=== PATIENT | female | born 1965 | race Caucasian/White ===

== ENCOUNTER → 2017-11-30 16:39 | Outpatient (CLI) | payer OTHER, SELFPAY | PROVIDERS: Family Provider Family Medicine; PCP Family Medicine; Visit Provider Nurse Practitioner Adult Health | DX: R35.0 Frequency of micturition (principal) | CPT/HCPCS: 87086; 87088 ==

== ENCOUNTER → 2018-11-30 14:53 | Outpatient (CLI) | payer OTHER, SELFPAY ==
[2018-11-30 16:39] LABS: Estradiol 35.7 pg/mL; Follicle Stimulating Hormone 76.6 mIU/mL; Free T3 2.1 pg/mL (2.18-3.98); T4 Free Direct 1.13 ng/dL (0.76-1.46); Thyroid Stim Hormone (TSH) 0.72 uIU/mL (0.358-3.74)
[2018-11-30 20:16] LABS: Hemoglobin A1c 5.1 % (4.2-6.3)
[2018-12-05 12:55] LABS: HPV Reflexed? NOT INDICATED
== END ==
PROVIDERS: Visit Provider Obstetrics & Gynecology
DX: N92.6 Irregular menstruation, unspecified (principal); Z12.4 Encounter for screening for malignant neoplasm of cervix
CPT/HCPCS: 36415; 82670; 83001; 83036; 84144; 84403; 84439; 84443; 84481; 88175; G0145

== ENCOUNTER → 2018-12-20 | Outpatient (CLI) | payer OTHER, SELFPAY ==
--- NOTE | 2018-12-20 08:36 | US_ITS ---
STUDY: ULTRASOUND OF THE FEMALE PELVIS - COMPLETE REASON FOR EXAM: Female, 53 years old. Irregular spotting LMP: December last year TECHNIQUE: Transabdominal and Transvaginal TECHNICAL QUALITY: Adequate. COMPARISON: 01/30/2012 FINDINGS: The uterus is anteverted and is in a midline position. The uterus measures 9.3 x 5.6 x 5.5 cm. There is a Nabothian cyst of the cervix. The endometrium measures 3.2 mm in thickness, and is hyperechoic. There is no demonstrated endometrial mass. 3 uterine fibroids are present, measuring 25 x 25 x 24 mm anteriorly, 22 x 19 x 18 mm posteriorly, and 9 x 9 x 6 mm posteriorly. I.U.D. - The patient does not have an I.U.D. The right ovary is visualized. The right ovary measures 2.2 x 1.6 x 1.0 cm. There is no right ovarian cyst or ovarian mass. There is no visualized right adnexal mass or complex lesion. There is normal arterial and normal venous vascularity. The left ovary is visualized. The left ovary measures 2.7 x 2.2 x 2.2 cm. There is no left ovarian cyst or ovarian mass. There is no visualized left adnexal mass or complex lesion. There is normal arterial and normal venous vascularity. There is no fluid in the cul-de-sac. The pre void volume of the bladder was 192 ml. Polycystic ovary disease: No. US/Pelvic (Non ) IMPRESSION: 3 uterine fibroids are present, measuring 25 x 25 x 24 mm anteriorly, 22 x 19 x 18 mm posteriorly, and 9 x 9 x 6 mm posteriorly. No endometrial lesions are seen. The ovaries are unremarkable. Electronically Signed: Ulises Fernando MD at 18:38 EDT Tel , Service support ,
--- NOTE | 2018-12-20 08:52 | US_ITS ---
STUDY: ULTRASOUND OF THE FEMALE PELVIS - COMPLETE REASON FOR EXAM: Female, 53 years old. Irregular spotting LMP: December last year TECHNIQUE: Transabdominal and Transvaginal TECHNICAL QUALITY: Adequate. COMPARISON: 01/30/2012 FINDINGS: The uterus is anteverted and is in a midline position. The uterus measures 9.3 x 5.6 x 5.5 cm. There is a Nabothian cyst of the cervix. The endometrium measures 3.2 mm in thickness, and is hyperechoic. There is no demonstrated endometrial mass. 3 uterine fibroids are present, measuring 25 x 25 x 24 mm anteriorly, 22 x 19 x 18 mm posteriorly, and 9 x 9 x 6 mm posteriorly. I.U.D. - The patient does not have an I.U.D. The right ovary is visualized. The right ovary measures 2.2 x 1.6 x 1.0 cm. There is no right ovarian cyst or ovarian mass. There is no visualized right adnexal mass or complex lesion. There is normal arterial and normal venous vascularity. The left ovary is visualized. The left ovary measures 2.7 x 2.2 x 2.2 cm. There is no left ovarian cyst or ovarian mass. There is no visualized left adnexal mass or complex lesion. There is normal arterial and normal venous vascularity. There is no fluid in the cul-de-sac. The pre void volume of the bladder was 192 ml. Polycystic ovary disease: No. US/Transvaginal Non- IMPRESSION: 3 uterine fibroids are present, measuring 25 x 25 x 24 mm anteriorly, 22 x 19 x 18 mm posteriorly, and 9 x 9 x 6 mm posteriorly. No endometrial lesions are seen. The ovaries are unremarkable. Electronically Signed: Ulises Fernando MD at 18:38 EDT Tel , Service support ,
== END | disposition home or self-care (01) ==
PROVIDERS: Family Provider Family Medicine; PCP Family Medicine; Referring Provider Obstetrics & Gynecology; Visit Provider Obstetrics & Gynecology
DX: N92.0 Excessive and frequent menstruation with regular cycle (principal)
CPT/HCPCS: 76830; 76856

== ENCOUNTER → 2018-12-26 | Outpatient (CLI) | payer OTHER, SELFPAY ==
--- NOTE | 2018-12-26 | EMB_PTH ---
PATIENT: DESMOND KIDD LOC: [facility] U#:[id number] AGE/SX: 53/F ROOM: RE12/26/[address]: Dr. Leticia Herrera MD : 1965 BED: DIS: 12/26/2018 SPEC #: [id number] RECD: 12/26/18 16:21 STATUS: BOGDAN ADRY #: [id number] DENZEL: 12/26/18 00:[address]: Leticia Herrera DEPT: SURGICAL PATHOLOGY RECD BY: Tommie Worley ENTERED: 12/27/18 08:17 SP TYPE: ENDOM BX/C AXEL DR: Dr. Maryanne Dsouza MD Tissues: Endometrium, NOS Procedures: Surgery Specimen Level IV HEADER OPERATION: Endometrial biopsy PRE-OP DIAGNOSIS: Postmenopausal bleeding TISSUE SUBMITTED: Endometrial biopsy MICROSCOPIC DIAGNOSIS Endometrial biopsy: Mildly disordered proliferative endometrium. SJ:andrew 12/28/18 MICROSCOPIC DESCRIPTION Slides are reviewed. GROSS DESCRIPTION Received in fixative is one container labeled with the patient's name and designated endometrial biopsy. The specimen consists of multiple irregular fragments of porter-pink soft tissue that in aggregate measure 0.8 x 0.5 x 0.3 cm. One of the fragments has a polypoid shape and measures 0.7 cm in greatest dimension. The specimen is totally submitted in one cassette. / CE:andrew 12/27/18 TC:5 CPT: 94701
== END | disposition home or self-care (01) ==
LOC: LABSPEC 17:55
PROVIDERS: Family Provider Family Medicine; PCP Family Medicine; Referring Provider Obstetrics & Gynecology; Visit Provider Obstetrics & Gynecology
DX: N85.8 Other specified noninflammatory disorders of uterus (principal); N95.0 Postmenopausal bleeding
CPT/HCPCS: 88305

== ENCOUNTER → 2019-01-11 | Outpatient (CLI) | payer OTHER, SELFPAY ==
[2019-01-11 16:06] LABS: Anion Gap 5 (5-15); BUN 13 mg/dL (7-18); BUN/Creat Ratio 15.1 RATIO (10-20); Calcium,Total 9.1 mg/dL (8.5-10.1); Chloride 98 mmol/L (98-107); Creatinine, Serum 0.86 mg/dL (0.55-1.02); EST Glomerular Filtration Rate 73 mL/min (>60); Est Glom Filt Rate - Afr Amer 88 mL/min (>60); Glucose 82 mg/dL (74-106); Potassium 4.4 mmol/L (3.5-5.1); Sodium Level 133 mmol/L (136-145)
== END | disposition home or self-care (01) ==
LOC: MFPLAB 14:10
PROVIDERS: Family Provider Family Medicine; PCP Family Medicine; Referring Provider Family Medicine; Visit Provider Family Medicine
DX: I10 Essential (primary) hypertension (principal)
CPT/HCPCS: 36415; 80048

== ENCOUNTER → 2020-07-28 | Outpatient (CLI) | payer OTHER, SELFPAY ==
[2020-08-02 20:54] LABS: HPV Reflexed? NOT INDICATED
== END | disposition home or self-care (01) ==
LOC: LABSPEC 11:05
PROVIDERS: PCP Family Medicine; Visit Provider Student in an Organized Health Care Education/Training Program
DX: Z12.4 Encounter for screening for malignant neoplasm of cervix (principal)
CPT/HCPCS: 88175; G0145

== ENCOUNTER → 2020-08-28 | Outpatient (CLI) | payer OTHER, SELFPAY ==
--- NOTE | 2020-08-28 | CER_PTH ---
PATIENT: DESMOND KIDD LOC: [facility] U#:[id number] AGE/SX: 55/F ROOM: RE08/28/[address]: Dr. Octavia Muniz DO : 1965 BED: DIS: 08/28/2020 SPEC #: [id number] RECD: 08/28/20 16:35 STATUS: BOGDAN REMyron #: [id number] DENZEL: 08/28/20 00:[address]: Octavia Muniz DEPT: SURGICAL PATHOLOGY RECD BY: Carlos A Patel ENTERED: 08/31/20 08:12 SP TYPE: CERV OTHR DR: Dr. Maryanne Dsouza MD Tissues: Uterine cervix, NOS Procedures: Surgery Specimen Level IV HEADER OPERATION: Polypectomy PRE-OP DIAGNOSIS: Cervical polyp TISSUE SUBMITTED: Cervical polyp MICROSCOPIC DIAGNOSIS Cervical polyp, polypectomy: Benign endocervical polyp. SJ:andrew 09/01/2020 MICROSCOPIC DESCRIPTION Slides are reviewed. GROSS DESCRIPTION Received in fixative is one container labeled with the patient's name and designated cervical polyp. The specimen consists of a porter-pink polyp measuring 1.5 x 0.7 x 0.3 cm. The entire specimen is submitted in one cassette. / SJ:andrew 08/31/20 TC:5 CPT: 12208
== END | disposition home or self-care (01) ==
LOC: LABSPEC 16:03
PROVIDERS: PCP Family Medicine; Visit Provider Student in an Organized Health Care Education/Training Program
DX: N84.1 Polyp of cervix uteri (principal)
CPT/HCPCS: 88305

== ENCOUNTER → 2020-09-11 10:42 | Outpatient (CLI) | payer OTHER, SELFPAY ==
--- NOTE | 2020-09-11 10:51 | EKG12_ITS ---
Test Reason : Blood Pressure : / mmHG Vent. Rate : 066 BPM Atrial Rate : 066 BPM P-R Int : 120 ms QRS Dur : 080 ms QT Int : 402 ms P-R-T Axes : 057 081 052 degrees QTc Int : 421 ms Normal sinus rhythm Normal ECG Confirmed by ELIEL ACOSTA, DENYS ([id number]), design editor VISHAL TABOR ([id number]) on 09/14/2020 12:54:29 PM Referred By: ANSELMO ALEXIS Confirmed By:DENYS JULIAN MD
== END ==
PROVIDERS: PCP Family Medicine
DX: I49.9 Cardiac arrhythmia, unspecified (principal)
CPT/HCPCS: 93005; 93225; 93226

== ENCOUNTER 2022-05-13 08:31 | Outpatient (CLI) | payer OTHER, SELFPAY ==
--- OUTSIDE RECORDS SUMMARY | 2022-05-13 08:36 | XMS RPT_ITS ---
:1965 Author Organization [facility] Care Team Providers Name Role Phone GOLDIE, DR CT Patterson Attending Unavailable GOLDIE, DR CT Patterson Primary Care Unavailable GOLDIE, DR CT Patterson Admitting Unavailable LETY OZUNA Referring Unavailable PROBLEMS PROBLEMS DATE TYPE CONDITION / CODE ATTENDING STATUS SOURCE 05/31/2021 Admitting COVID-19 / GOLDIE, DR Yves Phan ne Diagnosis U071(ICD-10) [facility] 05/31/2021 [facility] GOLDIEDR Yves TURNER Diagnosis U071(ICD-10) [facility] PROCEDURES PROCEDURES No Procedure Records FoundRESULTS RESULTS PROGRESS Observed: 02/16/2022 9:03 AM Status: COMPLETED S [facility]: [id number] Author: Lety Ozuna APRN.CNP Service: ? Author Type: Nurse Practitioner Type: Progress Notes Filed: 02/16/2022 9:48 AM Note Text: Subjective HPI HPI Edith Kidd is a 56 year old fe male who presents today for CC of left 4th toe pain after kicking door. This started 3 weeks ago. Has tried post op shoe. Symptoms are worsen ed by walking. Denies numbness/tingling of left 4th toe. .Patient presents with: Toe Pain (Toe): left foot 4th toe pain, hit on door x 3 weeks PAST MEDICAL HISTORY Diagnosis Date - Anemia - Blood dyscrasia - Family history of malignant neoplasm of gastrointestinal tract - Gestational diabetes - Internal hemorrhoids without mention of complication - Unspecified essential hypertension PAST SURGICAL HISTORY Procedure Laterality Date - COLONOSCOPY FLX DX W/COLLJ SPEC WHEN PFRMD 1999 Colonoscopy - COLONOSCOPY FLX DX W/COLLJ SPEC WHEN PFRMD 11/30/04 Colonoscopy - COLONOSCOPY FLX DX W/COLLJ SPEC WHEN PFRMD 12/02/10 - COLONOSCOPY FLX DX W/COLLJ SPEC WHEN PFRMD 05/02/2016 Colonoscopy ALLERGIES Patient has no known allergie s. MEDICATIONS cholecalciferol (VITAMIN D3) 5,000 unit tab Take 1 tablet by mouth once daily. MEDICATION, NON-DATABASE Mushroom . Br occoli supplement selenium 200 mcg cap Take by mouth. MAGNESIUM CITRATE ORAL Take by mouth. lisinopril (ZESTRIL, PRINIVIL) 20 mg ta blet Take 20 mg by mouth once daily. no.82/iron/folate no2 (TL ASHA TE ORAL) Take by mouth. 400 mcg MEDICATION, NON-DATABASE Vitamin D3 100 0 units takes 1 four times per week FAMILY HISTORY Problem Relation Age of Onset - Colon Cancer Father - Colon Cancer Paternal Aunt - Colon Cancer Paternal Uncle - Heart disease Mother - Hypertension Mother - Hyperlipidemia Mother - Heart Failure Mother - other (leukemia) Mother - other (leukemia) Brother Social History Tobacco Use - Smoking status: Never Smoker - Smokeless tobacco: Never Used Substance Use Topics - Alcohol use: Yes - Drug use: No ROS Objective Blood pressure 122/74, pulse (!) 56, t emperature 36.2 ?C (97.2 ?F), resp. rate 16, weight 55.3 kg (122 lb), SpO2 99 %. Physical Exam Constitutional: General: She is not in acute distress. Appearance: She is not toxic-appearing or diaphoretic. HENT: Head: Normocephalic and atraumatic. Cardiovascular: Pulses: Dorsalis pedis pulses are 2+ on the le ft side. Posterior tibial pulses are 2+ on the left side. Pulmonary: Effort: Pulmonary effort is normal. No accessory muscle usage or respiratory distress. Musculoskeletal: Feet: Neurological: Mental Status: She is alert and orient ed to person, place, and time. ASSESSMENT/PLAN: 1. Toe injury, left, initial encounter - ICD9: 959.7, ICD10: S99.922A -no bony abnormality noted on xray -given stretches/exercises -Rest, Ice, Compression, Elevation disc ussed -discussed use of ibuprofen -follow up with primary care if symptom s persist/worsen in 10-14 days New post op shoe provided. - XR TOE AP/LAT/OBL LEFT IMPRESSION: Soft tissue swelling of th e fourth digit. No acute fracture seen. ? Dictated by : ATTILA GAINES MD Agrees to plan Lety Ozuna APRN.SHAREBROKER XR TOE 3V AP/LAT/OBL LT Observed: 02/16/2022 8:24 Status: F [facility] * *Final Report* * * DATE OF EXAM: Feb 16 2022 8:24AM WOX [id number] - XR TOE 3V AP/LAT/OBL LT / AC CESSION # [id number] PROCEDURE REASON: Toe injury, left, ini tial encounter * * * * Physician Interpretation * * * * EXAM TITLE: XR TOE 3V AP/LAT/OBL LT EXAM DATE/TIME: 02/16/2022 8:24 AM COMPARISON: None CLINICAL INDICATION/HISTORY: Injury. TECHNIQUE: AP, lateral and oblique view s of the fourth digit of the left foot are presented. FINDINGS: No acute fractures or subluxations are noted. The joint spaces are well preserved. The mineralization of the bones is norm al. There is soft tissue swelling. IMPRESSION: Soft tissue swelling of th e fourth digit. No acute fracture seen. Skin Toggler: PSCB Transcribe Date/Time: Feb 16 2022 9:05A Dictated by : ATTILA GAINES MD This examination was interpreted and th e report reviewed and electronically signed by: ATTILA GAINES MD on Feb 16 2022 9:07AM EST [id number] PROGRESS Observed: 02/16/2022 8:10 AM Status: [facility] [id number] Author: Claudia Gambino RT(R) Service: Radiology Author Type: Technologist Type: Progress Notes Filed: 02/16/2022 8:24 AM Note Text: Radiology Service Progress Note PATIENT NAME: Edith Kidd DATE OF SERVICE: February 16, 2022 TIME: 8:13 AM PATIENT IDENTITY VERIFICATION COMPLETED USING TWO (2) IDENTIFIERS: Name and Date of confirmed by patient verbally. FALL SCREENING: Has the patient had 2 f alls in the last year or 1 fall with injury or currently using an Ambul atory Assistive Device (Walker, Cane, Wheelchair, Crutches, etc.)? No PATIENT GENDER DATA: Female. status: : No status: NO. PATIENT RELEVANT IMPLANT DATA REVIEWED: Yes RADIOLOGY DEPARTMENT: General X-ray: Ex am(s) Completed: Lower Extremity X-Ray(s): Toes, Left 4th toe PERIPHERAL IV DATA: Not applicable SIGNED BY: RT Dillon(R) February 16, 2022 8:13 AM CNOV Observed: 02/16/2022 7:30 AM Status: COMPLETED S ource: [facility] REPOSITOR Y Office Visit (UCWSTR) EDITH KIDD ([id number]) 1965 F Date Time Provider Department 02/16/22 7:30 AM LETY OZUNA RUST During your visit today, we recorded t he following information about you: Temperature Pulse Respiration Blood p ressure 97.2 degrees 56/minute 16/minute 122/7 4 Weight 55.3 kg Lety Ozuna APRN.CNP 02/16/2022 9:48 AM Signed Subjective HPI HPI Edith Kidd is a 56 year old fe male who presents today for CC of left 4th toe pain after kicking door. This s tarted 3 weeks ago. Has tried post op shoe. Symptoms are worsened by walking. Denies numbness/tingling of left 4th toe. .Patient presents with: Toe Pain (Toe): left foot 4th toe pain, hit on door x 3 weeks PAST MEDICAL HISTORY Diagnosis Date - Anemia - Blood dyscrasia - Family history of malignant neoplasm of gastrointestinal tract - Gestational diabetes - Internal hemorrhoids without mention of complication - Unspecified essential hypertension PAST SURGICAL HISTORY Procedure Laterality Date - COLONOSCOPY FLX DX W/COLLJ SPEC WHEN PFRMD 1999 Colonoscopy - COLONOSCOPY FLX DX W/COLLJ SPEC WHEN PFRMD 11/30/04 Colonoscopy - COLONOSCOPY FLX DX W/COLLJ SPEC WHEN PFRMD 12/02/10 - COLONOSCOPY FLX DX W/COLLJ SPEC WHEN PFRMD 05/02/2016 Colonoscopy ALLERGIES Patient has no known allergie s. MEDICATIONS cholecalciferol (VITAMIN D3) 5,000 unit tab Take 1 tablet by mouth once daily. MEDICATION, NON-DATABASE Mushroom . Bro ccoli supplement selenium 200 mcg cap Take by mouth. MAGNESIUM CITRATE ORAL Take by mouth. lisinopril (ZESTRIL, PRINIVIL) 20 mg ta blet Take 20 mg by mouth once daily. no.82/iron/folate no2 (TL ASHA TE ORAL) Take by mouth. 400 mcg MEDICATION, NON-DATABASE Vitamin D3 100 0 units takes 1 four times per week FAMILY HISTORY Problem Relation Age of Onset - Colon Cancer Father - Colon Cancer Paternal Aunt - Colon Cancer Paternal Uncle - Heart disease Mother - Hypertension Mother - Hyperlipidemia Mother - Heart Failure Mother - other (leukemia) Mother - other (leukemia) Brother Social History Tobacco Use - Smoking status: Never Smoker - Smokeless tobacco: Never Used Substance Use Topics - Alcohol use: Yes - Drug use: No ROS Objective Blood pressure 122/74, pulse (!) 56, te mperature 36.2 ?C (97.2 ?F), resp. rate 16, weight 55.3 kg (122 lb), SpO2 99 %. Physical Exam Constitutional: General: She is not in acute distress. Appearance: She is not toxic-appearing or diaphoretic. HENT: Head: Normocephalic and atraumatic. Cardiovascular: Pulses: Dorsalis pedis pulses are 2+ on the le ft side. Posterior tibial pulses are 2+ on the left side. Pulmonary: Effort: Pulmonary effort is normal. No accessory muscle usage or respiratory distress. Musculoskeletal: Feet: Neurological: Mental Status: She is alert and orient ed to person, place, and time. ASSESSMENT/PLAN: 1. Toe injury, left, initial encounter - ICD9: 959.7, ICD10: S99.922A -no bony abnormality noted on xray -given stretches/exercises -Rest, Ice, Compression, Elevation disc ussed -discussed use of ibuprofen -follow up with primary care if symptom s persist/worsen in 10-14 days New post op shoe provided. - XR TOE AP/LAT/OBL LEFT IMPRESSION: Soft tissue swelling of the fourth digit. No acute fracture seen. ? Dictated by : ATTILA GAINES MD Agrees to plan Lety Ozuna APRN.SHAREBROKER Referring Provider: SELF [200] Allergies As of Date: 02/16/2022 (No Known Allergies) Date Reviewed: 02/16/2022 Reviewed by: Lety Ozuna APRN.SHAREBROKER - Fully Assessed Reason for Visit: Toe Pain (Toe) [761] Cmt: left foot 4t h toe pain, hit on door x 3 weeks Primary Visit Diagnosis:Toe injury, lef t, initial encounter [S99.922A] Order(s):XR TOE AP/LAT/OBL LEFT [[id number]] Order #: [id number]. #:[id number] Prescriptions as of 02/16/2022 - cholecalciferol (VITAMIN D3) 5,000 un it tab Take 1 tablet by mouth once daily. - MEDICATION, NON-DATABASE Mushroom . Broccoli supplement - selenium 200 mcg cap Take by mouth. - no.82/iron/folate no2 (TL FO LATE ORAL) Take by mouth. 400 mcg - MAGNESIUM CITRATE ORAL Take by mouth. - lisinopril (ZESTRIL, PRINIVIL) 20 mg tablet Take 20 mg by mouth once daily. - MEDICATION, NON-DATABASE Vitamin D3 1000 units takes 1 four paresh es per week Problem List As Of Date 02/16/2022 Note d Resolved Unspecified essential hypertension [I1 0] Anemia [D64.9] Family history of malignant neoplasm o f gastroi* Gestational diabetes [O24.419] S/P mastectomy, unspecified laterality [Z90.10] 05/15/2017 Encounter Status:Closed by KELSEY OZUNA on 02/16/22 CORONAVIRUS PCR - POMERENE Collected: 05/31/2021 Status: F Source: [facility] 9:30 AM [facility] REPOSITORY TYPE CODE TESTS RESULT OUT OF RANGE REFERENCE UNITS LAB COVID-19(KATIUSKA COVID-19 POSITIVE Abnormal Alert NORMAL: N EGATIVE NC) Result Comment: { CALLED TO EVELIA,,13:25,KLS { READ BACK BY EVELIA LAB SEND TO IC?(LOINC) SEND TO IC? YES Result Comment: RESULTS FAXED TO [facility] CONTROL. SARS-CoV-2 THIS TEST IS BEING USED UNDER THE FDA E UA PROCEDURE. THIS ASSAY HAS BEEN VALIDATED IN THE [facility] FO R USE WITH NASOPHARYNGEAL SPECIMENS IN [facility]. INTERPRETIVE DATA LABORATORY TEST RESULTS SHOULD ALWAYS BE CONSIDERED IN THE CONTEXT OF CLINICAL OBSERVATIONS AND EPIDEMIOLOGICAL DATA I N MAKING FINAL DIAGNOSIS AND PATIENT MANAGEMENT DECISIONS. PATIENT MANAGEMEN T SHOULD FOLLOW CURRENT CDC GUIDELINES. A POSITIVE TEST RESULT FOR COVID-19 IND ICATES THAT RNA FROM SARS-CoV-2 WAS DETECTED, AND THE PATIENT IS INFECTED WITH THE VIRUS AND PRESUMED TO BE CONTAGIOUS. A NEGATIVE TEST RESULT FOR THIS TEST ME ANS THAT SARS-CoV-2 RNA WAS NOT PRESENT IN THE SPECIMEN ABOVE THE LIMIT OF DETE CTION. HOWEVER, A NEGATVIE RESULT DOES NOT RULE OUT COVID-19 AND SHOULD NOT BE USED THE SOLE BASIS FOR TREATMENT OR PATIENT MANAGEMENT DECISIONS. A NEGATIV E RESULT DOES NOT EXCLUDE THE POSSIBILITY OF COVID-19. WHEN DIAGNOSTIC TESTING IS NEGATIVE, TH E POSSIBLILTY OF A FALSE NEGATIVE RESULT SHOULD BE CONSIDERED IN THE CONTEXT OF A PATIENT'S RECENT EXPOSURES AND THE PRESENCE OF CLINICAL SIGNS AND SYMPTOMS CONSISTENT WITH COVID-19. THE POSSIBILITY OF A FALSE NEGATIVE RESULT SHOULD ESPECIALLY BE CONSIDERED IF THE PATIENT'S RECENT EXPOSURES OR CLINICAL PRESENTATION INDICATE THAT COVID-19 IS LIKELY, AND DIAGNOSTIC TESTS FOR OTHER CAUSES OF ILLNESS (e.g., OTHER RESPIRATORY ILLNESS) ARE NEGATIVE. IF COVID-19 IS STILL SUSPECTED BASED ON EXPOSURE HISTORY TOGETHER WITH OTHER CL INICAL FINDINGS, RE-TESTED SHOULD BE CONSIDERED BY HEALTHCARE PROVIDERS IN C ONSULTATION WITH PUBLIC HEALTH AUTHORITIES. Performed By: #### [id number] #### Ben [facility],[address] [place] [address] ALLERGIES ALLERGIES DATE TYPE / CODE NAME / CODE REACTION SEVERITY SOURCE Drug NO KNOWN ALLERGIES [facility] Class/[id number]([facility]) ENCOUNTERS ENCOUNTERS ADMIT/DISCHARGE ACCOUNT ADMITTING ENCOUNTER LOCATION SOURCE NUMBER CLASS 02/16/2022/02/17/[id number] ing:WORG 02/16/2022/02/17/[id number] ing:[facility] 05/31/2021/05/31/[id number] GOLDIE Ambulatory Building:[facility] Ben Coles [address] [place] [address] PAYERS PAYERS ENCOUNTER GUARANTOR PAYER SUBSCRIBER SOURCE 02/16/2022 Primary [facility] Insurance:[employer]ULTCARE [facility]DOB[facility]: [id number] [facility] [address] Date:[id number] [address] [place] [id number] Name:Y 02/16/2022 Primary [facility] Insurance:AULTCARE SPENCERDOB[facility] Number: [id number] [address] [place] [address] ROAD Date:[id number] [address] [place] [id number] Name:Y 05/31/2021 EDITH Primary EDITH SPENCERDOB: Ben blount SPENCERDOB: Insurance:AULTCARE [id number] Abdirashid [facility] OUTPATIENTPolicy [address] [place] [facility] [place] Number: [id number]: [id number] Date:Plan Name:A2 ()
[2022-05-13 10:05] LABS: Absolute Lymphocyte Count 1.62 X10^3/uL (0.83-4.51); Absolute Neutrophil Count 3.7 X10^3/uL (2.0-7.7); Basophil# 0.06 X10^3/uL; Eosinophil# 0.03 X10^3/uL; Eosinophils% 0.5 % (0-5); Hematocrit 43.6 % (37-47); Hemoglobin 14.8 g/dL (12.0-15.0); Lymphocyte # 1.62 X10^3/ul (0.83-4.51); Lymphocyte % 27.3 % (19-41); Mean Corp Hgb Conc 33.9 g/dL (32-36); Mean Corpuscular Hgb 32.2 pg (27.0-32.0); Mean Platelet Vol. 10.6 fl (6.2-12.0); Monocyte% 8.4 % (0-10); NRBC Flagged by Analyzer 0 % (0-5); Neutrophil # 3.72 X10^3/uL (2.7-7.7); Neutrophil % 62.6 % (47-70); Platelet Count 244 K/mm3 (150-450); RBC Distribution Width CV 11.9 % (11.6-14.6); Red Blood Count 4.59 M/mm3 (4.2-5.4); White Blood Count 5.9 K/mm3 (4.4-11.0)
[2022-05-13 10:33] LABS: Microalbumin,Random Urine < 5.0 mg/L (NO RANGE EST.)
[2022-05-13 10:34] LABS: AST(SGOT) 30 U/L (15-37); Alanine Aminotransfer ALT/SGPT 28 U/L (13-56); Albumin, Serum 3.8 g/dL (3.2-5.0); Alkaline Phosphatase 82 U/L (45-117); Anion Gap 9 (5-15); BUN 7 mg/dL (7-18); BUN/Creat Ratio 9.2 RATIO (10-20); Calcium,Total 9.4 mg/dL (8.5-10.1); Chloride 100 mmol/L (98-107); Cholesterol 226 mg/dL (200); Creatinine, Serum 0.76 mg/dL (0.55-1.02); EST Glomerular Filtration Rate 83 mL/min (>60); Est Glom Filt Rate - Afr Amer 100 mL/min (>60); Globulin 3.7 g/dL (2.2-4.2); Glucose 91 mg/dL (74-106); High Density Lipoprotein 67 mg/dL; Protein, Total 7.5 g/dL (6.4-8.2); Sodium Level 137 mmol/L (136-145); Triglycerides 134 mg/dL; Very Low Density Lipoprotein 27 mg/dL (5-40)
[2022-05-13 10:42] LABS: Hemoglobin A1c 5.3 % (3.8-5.6)
== END 2022-05-13 23:59 | disposition home or self-care (01) ==
LOC: MFPLAB 08:32
PROVIDERS: PCP Family Medicine; Referring Provider Family Medicine; Visit Provider Family Medicine
DX: Z00.00 Encounter for general adult medical examination without abnormal findings (principal)
CPT/HCPCS: 36415; 80053; 80061; 82043; 83036; 84443; 85025

== ENCOUNTER → 2023-03-10 | Outpatient (CLI) | payer OTHER, SELFPAY ==
[2023-03-17 07:08] LABS: HPV APTIMA, High Risk Negative (Negative)
== END | disposition home or self-care (01) ==
LOC: LABSPEC 15:37
PROVIDERS: PCP Family Medicine; Referring Provider Student in an Organized Health Care Education/Training Program; Visit Provider Student in an Organized Health Care Education/Training Program
DX: Z12.4 Encounter for screening for malignant neoplasm of cervix (principal)
CPT/HCPCS: 87624; 88175; G0145

== ENCOUNTER → 2023-03-24 | Outpatient (CLI) | payer OTHER, SELFPAY ==
--- NOTE | 2023-03-24 13:33 | BI_ITS ---
MAMMOGRAPHY - UNILATERAL SCREENING: LEFT BREAST REASON FOR EXAM: Female, 57 years old. Routine annual screening examination (unilateral). PERTINENT HISTORY: Personal history of breast cancer. Prior right mastectomy. TECHNIQUE: Digital unilateral breast angelic (3D mammographic acquisition) in the CC and MLO projections. 2-D mediolateral oblique (MLO) and craniocaudad (CC) views of both breasts were obtained. CAD: Full Field Digital Mammography with Computer Added Detection was performed. COMPARISON: Comparison is made with prior study dated May 04, 2016 and April 18, 2016. FINDINGS: Breast Composition: The breasts are heterogeneously dense, which may obscure small masses. There are no dominant masses or suspicious calcifications. Stable benign-appearing left axillary lymph nodes. No other significant abnormalities are identified. There has been no significant change since the prior study. BI/SCREEN MAMM (CAD) W/ANGELIC UNI L IMPRESSION: Stable unilateral screening mammogram. Yearly follow-up mammogram recommended. (A) ASSESSMENT CATEGORY: BIRADS Category 2: Benign. A letter regarding these results will be sent to the patient by the facility within 30 days. Approximately 10% of breast cancers are not detected by mammography. A normal mammogram should not delay biopsy of a clinically suspicious abnormality. [id number] Electronically Signed: Joseluis Kraft MD at 10:14 EDT ,
== END | disposition home or self-care (01) ==
LOC: OPBI 13:32
PROVIDERS: PCP Internal Medicine; Referring Provider Internal Medicine; Visit Provider Internal Medicine
DX: Z12.31 Encounter for screening mammogram for malignant neoplasm of breast (principal); Z85.3 Personal history of malignant neoplasm of breast
CPT/HCPCS: 77063; 77067

== ENCOUNTER → 2023-03-24 | Outpatient (CLI) | payer OTHER, SELFPAY ==
[2023-03-30 13:08] LABS: HPV APTIMA, High Risk Negative (Negative)
== END | disposition home or self-care (01) ==
LOC: LABSPEC 15:54
PROVIDERS: PCP Internal Medicine; Visit Provider Student in an Organized Health Care Education/Training Program
DX: Z12.4 Encounter for screening for malignant neoplasm of cervix (principal)
CPT/HCPCS: 87624; 88175; G0145

== ENCOUNTER → 2023-06-15 | Outpatient (CLI) | payer OTHER, SELFPAY ==
--- NOTE | 2023-06-15 09:06 | BD_ITS ---
STUDY: DUAL ENERGY X-RAY ABSORPTIOMETRY / DXA REASON FOR EXAM: Female, 57 years old. Osteoporosis TECHNIQUE: Bone Mineral Density (BMD) measurements of lumbar spine and bilateral hips were obtained. COMPARISON: None. FINDINGS: Lumbar Spine (L1-L4): g/cm2 (0.993) / T-score (-0.5) / Z-score (0.8) Findings are suggestive of normal bone density with a low fracture risk. Left Femur Total: g/cm2 (0.755) / T-score (-1.5) / Z-score (-0.6) Left Femoral Neck: g/cm2 (0.622) / T-score (-2.0) / Z-score (-0.8) Right Femur Total: g/cm2 (0.855) / T-score (-0.7) / Z-score (0.2) Right Femoral Neck: g/cm2 (0.689) / T-score (-1.4) / Z-score (-0.2) BD/Dexa Bone Density Study IMPRESSION: The patient is considered osteopenic as outlined below according to World Garrett Organization (WHO) criteria with a moderate fracture risk. Reference Information: The T-score is the number of standard deviations above or below the standard which is normal for young adults at their peak bone mineral density. The World Health Organization (WHO) interprets the T-scores as follows: Above -1 Normal bone density Between -1 and -2.5 Osteopenia Equal to / or below -2.5 Osteoporosis As a practical clinical guideline, osteopenia may be graded as follows: Mild -1 through -1.5 Moderate -1.6 through -2.0 Severe -2.1 through -2.4 The Z-score is the number of standard deviations above or below age-matched controls. A Z-score of less than -1.5 would be considered abnormal. References: 1. NIH Osteoporosis and Related Bone Diseases www osteo.org 2. International Society for Clinical Densitometry www iscd.org 3. National Osteoporosis Foundation www nof.org Electronically Signed: Joseluis Kraft MD at 12:30 EDT ,
== END | disposition home or self-care (01) ==
PROVIDERS: PCP Internal Medicine; Referring Provider Internal Medicine; Visit Provider Internal Medicine
DX: Z12.31 Encounter for screening mammogram for malignant neoplasm of breast (principal); Z82.62 Family history of osteoporosis
CPT/HCPCS: 77080

== ENCOUNTER → 2023-12-08 | Outpatient (CLI) | payer OTHER, SELFPAY ==
[2023-12-08 08:17] LABS: Absolute Lymphocyte Count 1.93 X10^3/uL (0.83-4.51); Absolute Neutrophil Count 3.5 X10^3/uL (2.0-7.7); Basophil# 0.08 X10^3/uL; Basophil% 1.3 % (0-1); Eosinophil# 0.05 X10^3/uL; Eosinophils% 0.8 % (0-5); Hematocrit 42.7 % (37-47); Hemoglobin 14.4 g/dL (12.0-15.0); Lymphocyte # 1.93 X10^3/ul (0.83-4.51); Lymphocyte % 31.4 % (19-41); Mean Corp Hgb Conc 33.7 g/dL (32-36); Mean Corpuscular Hgb 31.4 pg (27.0-32.0); Mean Platelet Vol. 9.8 fl (6.2-12.0); Monocyte# 0.55 X10^3/uL; Monocyte% 8.9 % (0-10); NRBC Flagged by Analyzer 0 % (0-5); Neutrophil # 3.52 X10^3/uL (2.7-7.7); Neutrophil % 57.3 % (47-70); Platelet Count 280 K/mm3 (150-450); RBC Distribution Width CV 11.9 % (11.6-14.6); RBC Distribution Width SD 40.9 fl (35.1-43.9); Red Blood Count 4.59 M/mm3 (4.2-5.4); White Blood Count 6.2 K/mm3 (4.4-11.0)
[2023-12-08 08:51] LABS: ALB/GLOB Ratio 1.1 RATIO (0.9-2.4); AST(SGOT) 32 U/L (15-37); Alanine Aminotransfer ALT/SGPT 33 U/L (13-56); Albumin, Serum 4.1 g/dL (3.2-5.0); Alkaline Phosphatase 82 U/L (45-117); Anion Gap 7 (5-15); BUN 10 mg/dL (7-18); BUN/Creat Ratio 11.7 RATIO (10-20); Calcium,Total 9.4 mg/dL (8.5-10.1); Chloride 100 mmol/L (98-107); Cholesterol 264 mg/dL (200); Creatinine, Serum 0.85 mg/dL (0.55-1.02); EST Glomerular Filtration Rate 73 mL/min (>60); Est Glom Filt Rate - Afr Amer 88 mL/min (>60); Free T3 2.9 pg/mL (2.18-3.98); Globulin 3.7 g/dL (2.2-4.2); Glucose 86 mg/dL (74-106); High Density Lipoprotein 70 mg/dL; Magnesium 2.2 mg/dL (1.6-2.6); Protein, Total 7.8 g/dL (6.4-8.2); Sodium Level 135 mmol/L (136-145); T4 Free Direct 1.02 ng/dL (0.76-1.46); Thyroid Stim Hormone (TSH) 1.81 uIU/mL (0.358-3.74); Triglycerides 102 mg/dL; Very Low Density Lipoprotein 20 mg/dL (5-40)
[2023-12-08 08:56] LABS: Vitamin B12 > 2000 pg/mL (211-911); Vitamin D,25 Hydroxy 32.9 ng/mL
== END | disposition home or self-care (01) ==
LOC: PAVLAB 07:55
PROVIDERS: PCP Internal Medicine; Referring Provider Internal Medicine; Visit Provider Internal Medicine
DX: E11.9 Type 2 diabetes mellitus without complications (principal); E78.00 Pure hypercholesterolemia, unspecified; I10 Essential (primary) hypertension; E55.9 Vitamin D deficiency, unspecified; E53.8 Deficiency of other specified B group vitamins; Z13.220 Encounter for screening for lipoid disorders
CPT/HCPCS: 36415; 80053; 80061; 82306; 82607; 83735; 84439; 84443; 84481; 85025

== ENCOUNTER → 2024-03-26 | Outpatient (CLI) | payer OTHER, SELFPAY ==
--- NOTE | 2024-03-26 15:30 | BI_ITS ---
MAMMOGRAPHY - UNILATERAL SCREENING: LEFT BREAST REASON FOR EXAM: Female, 58 years old. Routine annual screening examination (unilateral). PERTINENT HISTORY: Personal history of breast cancer. Prior right mastectomy with chemotherapy and radiation therapy. TECHNIQUE: Digital unilateral breast angelic (3D mammographic acquisition) in the CC and MLO projections. 2-D mediolateral oblique (MLO) and craniocaudad (CC) views of both breasts were obtained. CAD: Full Field Digital Mammography with Computer Added Detection was performed. COMPARISON: Comparison is made with prior study dated March 24, 2023 and May 04, 2016. FINDINGS: Breast Composition: The breasts are heterogeneously dense, which may obscure small masses. There are no dominant masses or suspicious calcifications. Stable left axillary lymph nodes. No other significant abnormalities are identified. There has been no significant change since the prior study. BI/SCREEN MAMM (CAD) W/ANGELIC UNI L IMPRESSION: Stable unilateral screening mammogram. Yearly follow-up mammogram recommended. (A) ASSESSMENT CATEGORY: BIRADS Category 2: Benign. A letter regarding these results will be sent to the patient by the facility within 30 days. Approximately 10% of breast cancers are not detected by mammography. A normal mammogram should not delay biopsy of a clinically suspicious abnormality. [id number] Electronically Signed: Joseluis Kraft MD at 8:12 EDT ,
== END | disposition home or self-care (01) ==
LOC: OPBI 15:30
PROVIDERS: PCP Internal Medicine; Referring Provider Internal Medicine; Visit Provider Internal Medicine
DX: Z12.31 Encounter for screening mammogram for malignant neoplasm of breast (principal)
CPT/HCPCS: 77063; 77067

== ENCOUNTER → 2024-12-18 | Outpatient (CLI) | payer OTHER, SELFPAY ==
[2024-12-18 06:58] LABS: Absolute Lymphocyte Count 1.51 X10^3/uL (0.83-4.51); Absolute Neutrophil Count 2.8 X10^3/uL (2.0-7.7); Basophil# 0.07 X10^3/uL; Basophil% 1.4 % (0-1); Eosinophil# 0.06 X10^3/uL; Eosinophils% 1.2 % (0-5); Hemoglobin 14.2 g/dL (12.0-15.0); Lymphocyte # 1.51 X10^3/ul (0.83-4.51); Lymphocyte % 30.3 % (19-41); Mean Corp Hgb Conc 35.5 g/dL (32-36); Mean Corpuscular Hgb 32.5 pg (27.0-32.0); Mean Corpuscular Volume 91.5 fL (81-99); Mean Platelet Vol. 9.6 fl (6.2-12.0); Monocyte# 0.55 X10^3/uL; NRBC Flagged by Analyzer 0 % (0-5); Neutrophil # 2.78 X10^3/uL (2.7-7.7); Neutrophil % 55.9 % (47-70); Platelet Count 243 K/mm3 (150-450); RBC Distribution Width CV 11.6 % (11.6-14.6); RBC Distribution Width SD 38.9 fl (35.1-43.9); Red Blood Count 4.37 M/mm3 (4.2-5.4)
[2024-12-18 07:19] LABS: Hemoglobin A1c 5.3 % (<=5.6)
[2024-12-18 07:43] LABS: ALB/GLOB Ratio 1.6 RATIO (0.9-2.4); AST(SGOT) 32 U/L (<=31); Alanine Aminotransfer ALT/SGPT 22 U/L (<=34); Albumin, Serum 4.2 g/dL (3.4-4.8); Alkaline Phosphatase 89 U/L (35-104); Anion Gap 11 (5-15); BUN 11 mg/dL (4-19); Calcium,Total 9.1 mg/dL (7.6-11.0); Carbon Dioxide 25.2 mmol/L (21.0-32.0); Chloride 101 mmol/L (98-108); Cholesterol 220 mg/dL (<=200); Creatinine, Serum 0.98 mg/dL (0.70-1.20); EST Glomerular Filtration Rate 66 (>60); Globulin 2.6 g/dL (2.2-4.2); Glucose 85 mg/dL (70-99); High Density Lipoprotein 52 mg/dL; Low Density Lipoprotein Calc. 149 mg/dL; Protein, Total 6.8 g/dL (5.9-8.4); Sodium Level 136 mmol/L (133-145); Total Bilirubin 0.51 mg/dL (0.00-1.30); Triglycerides 94 mg/dL; Very Low Density Lipoprotein 19 mg/dL (5-40); Vitamin B12 938 pg/mL (180-914); Vitamin D,25 Hydroxy 36.2 ng/mL (30-100); cholesterol:hdl ratio screen 4.21
[2024-12-19 07:07] LABS: Insulin Level 2.8 uIU/mL (2.6-24.9)
== END | disposition home or self-care (01) ==
LOC: LAB 06:19
PROVIDERS: PCP Internal Medicine; Referring Provider Internal Medicine; Visit Provider Internal Medicine
DX: Z00.00 Encounter for general adult medical examination without abnormal findings (principal); E11.65 Type 2 diabetes mellitus with hyperglycemia; I10 Essential (primary) hypertension; E78.00 Pure hypercholesterolemia, unspecified; E55.9 Vitamin D deficiency, unspecified; Z13.220 Encounter for screening for lipoid disorders
CPT/HCPCS: 36415; 80053; 80061; 82306; 82607; 83036; 83525; 84443; 85025

== ENCOUNTER 2024-12-19 06:14 | Day surgery (SDC) | payer OTHER, SELFPAY ==
--- NOTE | 2024-12-16 16:18 | PAT.ANE_ITS ---
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 When Was Last Pacemaker Check QUESTION #4 FULL TEXT: You/Your Family Experience fever (hyperthermia) with Anesthesia Last Oral Intake Last Oral intake: Last Oral Intake NPO since Meds taken in AM with sips of water? 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 Female Yes 12/16/24 15:59 HX of Motion Sickness No 12/16/24 15:59 HX of N/V After Surgery No 12/16/24 15:59 Non-Smoker Yes 12/16/24 15:59 Duration of Surgery greater No 12/16/24 15:59 than 60 minutes Number of Risk Factors 2 12/16/24 15:59 PONV Score Moderate Risk 12/16/24 15:59 Height & Weight Height & Weight: Anesthesia: Height & Weight Height 5 ft 2 in 10/16/24 10:15 Respiratory Assessment Respiratory Assessment - silk screen painter: Respiratory Tract Infection Hx - silk screen painter Hx Respiratory Tract Infection No 12/16/24 15:59 STOP Sleep Apnea STOP Sleep Apnea - silk screen painter: STOP Sleep Apnea - silk screen painter Hx Hypertension Yes: CONTROLLED WITH MED 12/16/24 15:59 Hx Sleep Apnea No 12/16/24 15:59 CPAP BIPAP Do you snore loudly (louder No 12/16/24 15:59 than talking or can be heard Do you often feel tired/ No 12/16/24 15:59 fatigued/ sleepy during daytime? Has anyone observed you stop No 12/16/24 15:59 breathing during sleep? STOP Results Negative 12/16/24 15:59 QUESTION #5 FULL TEXT : Do you snore loudly (louder than talking or can be heard through closed doors)? 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 Specify any problems Hx of Preganancy in last 3 N/A 12/16/24 15:59 Months Nurse Filling Out Transfusion NBUCHER 12/16/24 15:59 & Questions: Date: 12/16/24 12/16/24 15:59 Time: 16:00 12/16/24 15:59 Patient unable to answer at this time (ie. confused, unrespo /Reproduction History /Reproductive History - silk screen painter: /Reproductive Hx- silk screen painter Hx Now No 12/16/24 15:59 Gestational Age (in weeks): EDC: Hx Hx Para Hx Section SAB No 12/16/24 15:59 [facility] Medical History (Updated 12/16/24 @ 16:05 by Hanane Marcus) Wears contact lenses Cancer Non-smoker History of Holter monitoring Adult wellness visit Family history of malignant neoplasm of colon in relative diagnosed when younger than 50 years of age Hives Osteoarthritis High cholesterol Hypertension Hearing problem Diabetes Breast cyst Bone fracture Anemia Home Medications ?Medication ?Instructions ?Recorded ?Last Taken ?Type biotin 10,000 mcg chewable tablet 10,000 mcg PO DAILY 11/29/23 Unknown History (Hair, Skin and Nails (biotin)) cholecalciferol (vitamin D3) 125 125 mcg PO DAILY 11/19 Unknown History mcg (5,000 unit) tablet fexofenadine 180 mg tablet 180 mg PO 3XW 11/29/23 Unkn own History mecobalamin (vitamin B12) 500 mcg 500 mcg PO DAILY 06/13 Unknown History chewable tablet estradiol 0.01% (0.1 mg/gram) See Rx Instructions vagi nal 04/24/24 Unknown Rx vaginal cream .COMPLEX #42.5 grams krill oil 500 mg capsule 500 mg PO QDAY 10/16/24 Unkn own History lactobacillus combination no.9 4 4,000 mmu cells PO QD AY 10/16/24 Unknown History billion cell capsule (Adult 50 Plus Probiotic) niacinamide 500 mg capsule 500 mg PO QDAY 10/16/24 Unk nown History lisinopril 20 mg tablet 20 mg PO DAILY #90 tabs 11/20 09/14 Unknown Rx Allergy/AdvReac Type Severity Reaction Status Date / Time No Known Allergies Allergy Verified 12/16/24 15:57 Family History Unknown Blood clot in vein pt does not have L-V gene Colon cancer Cousin at 43yrs Mother Dementia Father Colon cancer At 49yrs Aunt Colon cancer Uncle Colon cancer Other Alcoholism Anxiety CVA (cerebral vascular accident) Diabetes High cholesterol Hypertension Osteoporosis Surgical History (Updated 12/16/24 @ 16:05 by Hanane Marcus) History of reconstruction of right breast History of partial mastectomy of right breast Hx of colonoscopy Breast cancer Social History household members: spouse current occupational status: retired current occupation: Retired Smoking Status: Never smoker alcohol intake: current details: IPA's 1 can 4xweek substance use type: other details: CBD tea /legal what type of physical activity do you participate in: other details: crossfit style running frequency: 3-4 times per week seatbelt use: always do you feel safe at home: Yes 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 Normal sinus rhythm 66 bpm. Recommendation Anesthesia Recommendation Anesthesia recommendation: OPTIMIZED for anesthesia
[2024-12-19] VITALS (7 sets, daily range): BP systolic 95–149; BP diastolic 60–87; PULSE 50–63; RESP 16–17; TEMP 36.1–36.5; O2SAT 96–100; BMI 22.9
--- NOTE | 2024-12-19 06:25 | PRE.ANES_ITS ---
ASA Classification* ASA Classification ASA Classification: 2 Assessment & Plan Anesthesia* Anesthesia Assessment Anesthesia Assessment: Discussed sedation and/or anesthesia options, risks, benefits, and alternatives with patient/parents/legal guardian/POA. Questions invited. The patient/parents/legal guardian/POA seems to understand and agrees to proceed with anesthesia plan. Reviewed the physical assessment, medical history, allergy history and patient home medications list prior to surgery/procedure/anesthetic and documented any changes. Performed airway and anesthesia risk assessments. Anesthesia Type Anesthesia Type: MAC History Source History Obtained from:: Patient and Chart Anesthesia Focused Assessment* Temperature: 97.5 F Pulse Rate: 63 Blood Pressure: 149/87 Respiratory Rate: 17 Pulse Ox: 100 Oxygen Delivery Method: Room Air Airway Assessment Mouth opens: >3 cm Mallampati Score: III Teeth Condition: Caps/Crowns (Patient has 1 crown. It is tight.) Neck Range of motion (ROM): Full ROM Focused Labs Anesthesia Preop lab: CBC WBC 5.0 K/mm3 (4.4-11.0) 12/18/24 06:12/18/24 RBC 4.37 M/mm3 (4.2-5.4) 12/18/24 06:12/18/24 Hgb 14.2 g/dL (12.0-15.0) 12/18/24 06:12/18/24 Hct 40.0 % (37-47) 12/18/24 06:25 12/18/24 Plt Count 243 K/mm3 (150-450) 12/18/24 06:25 12/18/24 CHEMISTRY Potassium 4.0 mmol/L (3.3-5.1) 12/18/24 06:25 12/18/24 Sodium 136 mmol/L (133-145) 12/18/24 06:25 12/18/24 Magnesium 2.2 mg/dL (1.6-2.6) 12/08/23 08:00 12/08/23 BUN 11 mg/dL (4-19) 12/18/24 06:25 12/18/24 Creatinine 0.98 mg/dL (0.70-1.20) 12/18/24 06:12/18/24 Glucose 85 mg/dL (70-99) 12/18/24 06:12/18/24 TSH 1.450 uIU/mL (0.300-4.200) 12/18/24 06:25 04/ COAG Pre-Assessment Diagnosis/Proposed Procedure Planned Operative Procedure(s): CSCOPE Anesthesia History 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 When Was Last Pacemaker Check QUESTION #4 FULL TEXT: You/Your Family Experience fever (hyperthermia) with Anesthesia Last Oral Intake Last Oral intake: Last Oral Intake NPO since Meds taken in AM with sips of water? Meds patient instructed to take am of surgery Any additional information?: Yes NPO since: 05:00 (Patient water at 5 AM. 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 Female Yes 12/16/24 15:59 HX of Motion Sickness No 12/16/24 15:59 HX of N/V After Surgery No 12/16/24 15:59 Non-Smoker Yes 12/16/24 15:59 Duration of Surgery greater No 12/16/24 15:59 than 60 minutes Number of Risk Factors 2 12/16/24 15:59 PONV Score Moderate Risk 12/16/24 15:59 Height & Weight Height & Weight: Anesthesia: Height & Weight Height 5 ft 2 in 12/09/24 11:11 Respiratory Assessment Respiratory Assessment - bias cutting machine operator: Respiratory Tract Infection Hx - 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 Has anyone observed you stop No 12/16/24 15:59 breathing during sleep? STOP Results Negative 12/16/24 15:59 QUESTION #5 FULL TEXT : Do you snore loudly (louder than talking or can be heard through closed doors)? 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 Specify any problems Hx of Preganancy in last 3 N/A 12/16/24 15:59 Months Nurse Filling Out Transfusion NBUCHER 12/16/24 15:59 & Questions: Date: 12/16/24 12/16/24 15:59 Time: 16:00 12/16/24 15:59 Patient unable to answer at this time (ie. 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: /Reproductive Hx- bias cutting machine operator Hx Now No 12/16/24 15:59 Gestational Age (in weeks): EDC: Hx Hx Para Hx Section SAB No 12/16/24 15:59 Active Medications Active Medications: Current Medications Generic Name Dose Route Start Last Admin Trade Name Freq PRN Reason Stop Dose Admin Lactated Ringer's 1,000 mls @ 15 mls/hr 12/19/24 06:30 IV .Q48H RANJIT PFSH Medical History Wears contact lenses Cancer Non-smoker History of Holter monitoring Adult wellness visit Family history of malignant neoplasm of colon in relative diagnosed when younger than 50 years of age Hives Osteoarthritis High cholesterol Hypertension Hearing problem Diabetes Breast cyst Bone fracture Anemia Home Medications ?Medication ?Instructions ?Recorded ?Last Taken ?Type biotin 10,000 mcg chewable tablet 10,000 mcg PO DAILY 11/29/23 Unknown History (Hair, Skin and Nails (biotin)) cholecalciferol (vitamin D3) 125 125 mcg PO DAILY 11/19 Unknown History mcg (5,000 unit) tablet fexofenadine 180 mg tablet 180 mg PO 3XW 11/29/23 Unkn own History mecobalamin (vitamin B12) 500 mcg 500 mcg PO DAILY 06/13 Unknown History chewable tablet estradiol 0.01% (0.1 mg/gram) See Rx Instructions vagi nal 04/24/24 Unknown Rx vaginal cream .COMPLEX #42.5 grams krill oil 500 mg capsule 500 mg PO QDAY 10/16/24 Unkn own History lactobacillus combination no.9 4 4,000 mmu cells PO QD AY 10/16/24 Unknown History billion cell capsule (Adult 50 Plus Probiotic) niacinamide 500 mg capsule 500 mg PO QDAY 10/16/24 Unk nown History lisinopril 20 mg tablet 20 mg PO DAILY #90 tabs 11/20 09/14 Unknown Rx Allergy/AdvReac Type Severity Reaction Status Date / Time No Known Allergies Allergy Verified 12/16/24 15:57 Family History Unknown Blood clot in vein pt does not have L-V gene Colon cancer Cousin at 43yrs Mother Dementia Father Colon cancer At 49yrs Aunt Colon cancer Uncle Colon cancer Other Alcoholism Anxiety CVA (cerebral vascular accident) Diabetes High cholesterol Hypertension Osteoporosis Surgical History History of reconstruction of right breast History of partial mastectomy of right breast Hx of colonoscopy Breast cancer Social History household members: spouse current occupational status: retired current occupation: Retired Smoking Status: Never smoker alcohol intake: current details: IPA's 1 can 4xweek substance use type: other details: CBD tea /legal what type of physical activity do you participate in: other details: crossfit style running frequency: 3-4 times per week seatbelt use: always do you feel safe at home: Yes 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
[2024-12-19] MEDS: Lactated Ringers 1,000 ML 15 ML IV (06:43)
--- NOTE | 2024-12-19 06:59 | PCM.HP.STD ---
HPI - General General Date of Admission: 12/19/24 Date of Service: 12/19/24 Chief Complaint: Screening colonoscopy HPI Narrative DESMOND KIDD, is a 59 F who presents today for screening colonoscopy. She had a colonoscopy in the past. She has a strong family history of colon cancer. [facility] Medical History Wears contact lenses Cancer Non-smoker History of Holter monitoring Adult wellness visit Family history of malignant neoplasm of colon in relative diagnosed when younger than 50 years of age Hives Osteoarthritis High cholesterol Hypertension Hearing problem Diabetes Breast cyst Bone fracture Anemia Home Medications ?Medication ?Instructions ?Recorded ?Last Taken ?Type biotin 10,000 mcg chewable tablet 10,000 mcg PO DAILY 11/29/23 Unknown History (Hair, Skin and Nails (biotin)) cholecalciferol (vitamin D3) 125 125 mcg PO DAILY 11/29/23 12/18/24 History mcg (5,000 unit) tablet fexofenadine 180 mg tablet 180 mg PO 3XW 11/29/23 12/18/24 History mecobalamin (vitamin B12) 500 mcg 500 mcg PO DAILY 11/29/23 Unknown History chewable tablet estradiol 0.01% (0.1 mg/gram) See Rx Instructions vaginal 04/24/24 12/18/24 Rx vaginal cream .COMPLEX #42.5 grams krill oil 500 mg capsule 500 mg PO QDAY 10/16/24 Unknown History lactobacillus combination no.9 4 4,000 mmu cells PO QDAY 10/16/24 Unknown History billion cell capsule (Adult 50 Plus Probiotic) niacinamide 500 mg capsule 500 mg PO QDAY 10/16/24 Unknown History lisinopril 20 mg tablet 20 mg PO DAILY #90 tabs 12/09/24 12/18/24 Rx Allergy/AdvReac Type Severity Reaction Status Date / Time No Known Allergies Allergy Verified 12/19/24 06:39 Family History Unknown Blood clot in vein pt does not have L-V gene Colon cancer Cousin at 43yrs Mother Dementia Father Colon cancer At 49yrs Aunt Colon cancer Uncle Colon cancer Other Alcoholism Anxiety CVA (cerebral vascular accident) Diabetes High cholesterol Hypertension Osteoporosis Surgical History History of reconstruction of right breast History of partial mastectomy of right breast Hx of colonoscopy Breast cancer Social History household members: spouse current occupational status: retired current occupation: Retired Smoking Status: Never smoker alcohol intake: current details: IPA's 1 can 4xweek substance use type: other details: CBD tea /legal what type of physical activity do you participate in: other details: crossfit style running frequency: 3-4 times per week seatbelt use: always do you feel safe at home: Yes 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 Constitutional Constitutional: Denies fatigue, fever(s), poor appetite, weight gain or weight loss Gastrointestinal Gastrointestinal: Denies belching, bloating, change in bowel habits, change in stool character, chewing difficulty, coffee ground emesis, constipation, cramping, diarrhea, dyspepsia, dysphagia, early satiety, excessive flatus, fecal incontinence, heartburn, hematemesis, hematochezia, hemorrhoids, loose stools, melena, nausea, odynophagia, rectal bleeding, tenesmus, vomiting or weight changes Vital Signs Vital Signs Vital Signs: 12/19/24 06:33 12/19/24 06:40 12/19/24 06:40 Temperature 97.5 F L 97.5 F L Temperature Source Temporal Pulse Rate 63 63 Respiratory Rate 17 17 Respiratory Pattern Normal Blood Pressure 149/87 H 149/87 H Blood Pressure Mean 107 Blood Pressure Source Monitor Blood Pressure Position Semi-Fowlers Blood Pressure Location Left Arm Pulse Ox 100 100 Oxygen Delivery Method Room Air Room Air Weight Weight: 125 lb 10.616 oz Body Mass Index (BMI) 22.9 Physical Exam Const alert, oriented x3, no apparent distress and healthy appearing General Appearance: cooperative GI normal to inspection, nondistended, normoactive bowel sounds, soft to palpation, non-tender and non-distended Percussion: normal to percussion Rectal Exam: deferred Assessment & Plan Assessment/Plan (1) Encounter for screening for malignant neoplasm of colon: PLAN: She was explained alternatives, risk, benefits including not withstanding bleeding, infection, sepsis, perforation, need for emergent surgery . She will have an ASA of 3.
--- NOTE | 2024-12-19 08:10 | OP.COLON_ITS ---
Patient Name: Edith Linton Procedure Date: 12/19/2024 7:34 AM Date of : 1965 Age: 59 Procedure: Colonoscopy Indications: Screening for colorectal malignant neoplasm Providers: Jerald Mckeon DO Referring MD: Terri Chamberlain Medicines: Monitored Anesthesia Care Patient Profile: This is a 59 year old female. Refer to note in patient chart for documentation of history and physical. Last Colonoscopy: 5 years ago. Complications: No immediate complications. Procedure: Pre-Anesthesia Assessment: - Prior to the procedure, a History and Physical was performed, and patient medications and allergies were reviewed. The patient is competent. The risks and benefits of the procedure and the sedation options and risks were discussed with the patient. All questions were answered and informed consent was obtained. Patient identification and proposed procedure were verified by the physician in the pre-procedure area. Mental Status Examination: alert and oriented. Airway Examination: normal oropharyngeal airway and neck mobility. Respiratory Examination: clear to auscultation. CV Examination: normal. Prophylactic Antibiotics: The patient does not require prophylactic antibiotics. Prior Anticoagulants: The patient has taken no anticoagulant or antiplatelet agents except for NSAID medication. ASA Grade Assessment: II - A patient with mild systemic disease. After reviewing the risks and benefits, the patient was deemed in satisfactory condition to undergo the procedure. The anesthesia plan was to use monitored anesthesia care (MAC). Immediately prior to administration of medications, the patient was re-assessed for adequacy to receive sedatives. The heart rate, respiratory rate, oxygen saturations, blood pressure, adequacy of pulmonary ventilation, and response to care were monitored throughout the procedure. The physical status of the patient was re-assessed after the procedure. After I obtained informed consent, the scope was passed under direct vision. Throughout the procedure, the patient's blood pressure, pulse, and oxygen saturations were monitored continuously. The Colonoscope was introduced through the anus and advanced to the cecum, identified by appendiceal orifice and ileocecal valve. The colonoscopy was performed without difficulty. The patient tolerated the procedure well. The quality of the bowel preparation was adequate. The ileocecal valve, appendiceal orifice, and rectum were photographed. Scope In: 7:41:46 AM Scope Withdrawal Time 0 hours 9 minutes 41 seconds Scope Out: 8:01:34 AM Total Procedure Duration Time 0 hours 19 minutes 48 seconds Findings: The perianal and digital rectal examinations were normal. The colon (entire examined portion) appeared normal. No additional abnormalities were found on retroflexion. Impression: - The entire examined colon is normal. - No specimens collected. Recommendation: - Discharge patient to home. - Resume previous diet. - Continue present medications. - Repeat colonoscopy in 5 years for screening purposes. Procedure Code(s): --- Professional --- G0121, Colorectal cancer screening; colonoscopy on individual not meeting criteria for high risk CPT copyright 2021 [employer]. All rights reserved. The codes documented in this report are preliminary and upon mingle operator review may be revised to meet current compliance requirements. Jerald Mckeon DO 12/19/2024 8:10:07 AM This report has been signed electronically. Number of Addenda: 0 Note Initiated On: 12/19/2024 7:34 AM
--- NOTE | 2024-12-19 08:10 | OP.CCLET_ITS ---
12/19/2024 Terri Chamberlain [facility] [address] [place] [address] Re : Colonoscopy procedure for Edith Linton Dear Dr. Chamberlain This procedure was performed on December. My impressions and recommendations are as follows: Impressions : - The entire examined colon is normal. - No specimens collected. Recommendations : - Discharge patient to home. - Resume previous diet. - Continue present medications. - Repeat colonoscopy in 5 years for screening purposes. My findings are described in the full procedure note, which is enclosed. If I can be of further assistance, please feel free to contact me at . Sincerely, Jerald Mckeon, 12/19/2024 8:10:07 AM This report has been signed electronically.
--- NOTE | 2024-12-19 08:14 | PCM.POST.ANE ---
Anesthesia: Postop Eval I Current Vital Signs Temperature: 97.7 F Pulse Rate: 57 Blood Pressure: 95/60 Respiratory Rate: 16 Pulse Ox: 97 Oxygen Delivery Method: Room Air Assessment Airway patent: Yes Spontaneous unlabored respirations: Yes Mental status: Asleep nausea: No Vomiting: No Anesthesia Complication: No Fluid Hydration Crystalloid volume administer (ml): 400 Total IV fluid infused: 400 Progress Note Anesthesia document: Postop Eval 1 completed: Yes
--- NOTE | 2024-12-19 10:40 | PCM.POSTANE2 ---
Anesthesia Postop Eval I Sum Postop Eval Completion status Anesthesia document: Postop Eval 1 completed: Yes Anesthesia Postop Eval I Summary Anesthesia Postop Eval I Summary: Anesthesia Postop Eval I: Assessment Summary Airway patent Yes 12/19/24 08:15 [email or web address] Spontaneous unlabored Yes 12/19/24 08:15 [email or web address] respirations Mental status Asleep 12/19/24 08:15 [email or web address] nausea No 12/19/24 08:15 [email or web address] Vomiting No 12/19/24 08:15 [email or web address] Anesthesia Postop Eval I: Fluid Summary Crystalloid volume administer 400 12/19/24 08:15 [email or web address] (ml) Colloids volume administered ( ml) Blood Product volume administered (ml) Total IV fluid infused 400 12/19/24 08:15 [email or web address] Anesthesia Postop Eval I: Summary Notes Anesthesia Complication No 12/19/24 08:15 [email or web address] Anesthesia Complication Comment: Post-operative progress note Anesthesia: Postop Eval II Evaluation Mental status: Awake and Calm Pain Level: 0 nausea: No Vomiting: No Complications Anesthesia Complication: No
== END 2024-12-19 08:53 | disposition home or self-care (01) ==
LOC: EN 06:14 → AC 06:15
PROVIDERS: PCP Internal Medicine; Referring Provider Internal Medicine; Visit Provider Internal Medicine Gastroenterology
PROC: 0DJD8ZZ Inspection of Lower Intestinal Tract, Via Natural or Artificial Opening Endoscopic (ICD-10-PCS; CPT 45378; principal; 2024-12-19 07:10)
DX: Z12.11 Encounter for screening for malignant neoplasm of colon (principal); E11.9 Type 2 diabetes mellitus without complications; E78.00 Pure hypercholesterolemia, unspecified; I10 Essential (primary) hypertension; Z79.899 Other long term (current) drug therapy; Z80.0 Family history of malignant neoplasm of digestive organs
CPT/HCPCS: 45378; J2405

== ENCOUNTER → 2025-01-08 | Outpatient (CLI) | payer OTHER, SELFPAY ==
--- NOTE | 2025-01-08 14:56 | NEURO ---
NCS and/or EMG Patient Report Ordering Doctor: Terri Chamberlain DATE OF SERVICE: 01/08/25 Edith presents with complaints of numbness and tingling in the left hand. Electrodiagnostic findings: Left median motor nerve demonstrates normal distal latency and amplitude with reduced conduction velocity. Left ulnar motor response is within normal limits. Normal left median sensory response. Normal left ulnar radial sensory responses. Prolonged left median F?wave. Needle EMG testing was performed the left upper limb. All muscles tested showed no evidence of denervation with normal motor unit action potentials. Electrodiagnostic assessment: This an abnormal study in the left upper limb 1. Electrodiagnostic findings suggestive of left-sided median mononeuropathy. This consistent with mild to moderate left carpal tunnel syndrome. 2. Electrodiagnostic evidence is noted for cervical radiculopathy or brachial plexopathy Multi Select Codes Neurology Neurology Interp Codes: 71306-84 Musc test done w/n test comp (interp) and 32945-34 Nrv cndj test 7-8 studies (interp)
== END | disposition home or self-care (01) ==
LOC: PSN 13:48
PROVIDERS: PCP Internal Medicine; Referring Provider Internal Medicine; Visit Provider Internal Medicine
DX: G56.02 Carpal tunnel syndrome, left upper limb (principal)
CPT/HCPCS: 95886; 95910

== ENCOUNTER → 2025-01-31 | Outpatient (CLI) | payer OTHER, SELFPAY ==
--- OUTSIDE RECORDS SUMMARY | 2025-01-31 06:26 | XMS RPT_ITS | CCD ---
Author Organization [facility] CliniSywy Care Team Providers Care Wireless Watcher Name Role Phone GOLDIE, DR CT Patterson Attending Unavaila ble GOLDIE, DR CT Patterson Primary Care Unavaila wilda AMEZCUA, DR CT Patterson Admitting Unavaila ble Unavailable Primary Care Provider Unavailabl e Unavailable Primary Care Provider UnavailDr. Terri Brown Primary Care Provider Dr. Terri Chamberlain Attending Provider [phone] Unavailable Primary Care Provider Unavailabl e Unavailable Primary Care Provider Unavailabl e SELF, SELF Referring Unavailable ESTEBAN HOWARD Attending Unavail able ESTEBAN HOWARD Referring Unavail able ESTEBAN HOWARD Attending Unavail able Dr. Terri Chamberlain MD Primary Care Provider Christine Ozuna Attending Provider Unavailable Dr. Terri Chamberlain MD Attending Provider Dr. Terri Chamberlain MD Referring Provider Dr. Jerald Mckeon DO Attending Provider Dr. Jerald Mckeon DO Other Provider [phone] Dr. Terri Chamberlain MD Other Provider Frankie ACOSTA, Dr. Turcios Attending Provider [phone] Christine Ozuna Attending Unavailable Terri Chamberlain Primary Care Unavailable Terri Chamberlain Primary Care Unavailable Jerald Mckeon Consulting Unavailable Jerald Mckeon Attending Unavailable Terri Chamberlain Referring Unavailable Tam David Attending Unavailable Terri Chamberlain Consulting Unavailable Terri Chamberlain Referring Unavailable Terri Chamberlain Primary Care Unavailable [place] MINGLER OPERATORAvelina Attending Unavailable Terri Chamberlain Primary Care Unavailable Terri Chamberlain Referring Unavailable Avelina Esteban NP Attending Unavailable Terri Chambrelain Primary Care Unavailable Terri Chamberlain Referring Unavailable Terri Chamberlain Primary Care Unavailable Terri Chamberlain Attending Unavailable Linda Jerald Attending Unavailable BulmaroTerri Primary Care Unavailable Bulmaro, Terri Referring Unavailable BulmaroTerri Primary Care Unavailable Terri Chamberlain Attending Unavailable Bulmaro, Terri Referring Unavailable Bulmaro Terri Primary Care Unavailable Terri Chamberlain Attending Unavailable Bulmaro, Terri Referring Unavailable Bulmaro Terri Primary Care Unavailable Terri Chamberlain Attending Unavailable Terri Chamberlain Referring Unavailable Allergies Allergy Classification Reported Allergen(s) Allergy Type Date of Onset Reaction(s) Facility (6 sources) soap; Translations: [soap] Allergy to substance 12-05-2022 [facility] Medications Current Medications Medication Drug Class(es) Dates Sig (Normalized) Sig (Original) Biotin (2 sources) Start: 11-29-2023 Biotin (Hair, Skin And Nails (Biotin)) 10,000 mcg tablet,chewable Active 18915 ug PO DAILY November 29, 2023 12:00am Start: 11-29-2023 take 1 tablet by eduardo th once daily Biotin (Hair, Skin And Nails (Biotin)) 10,000 mcg tablet,chewable Active 16679 MCG PO DAILY November 29, 2023 12:00am cholecalciferol 0.125 mg oral tablet (6 sources) Vitamin D Start: 11-29-2023 take 1 tablet by mouth once daily Cholecalciferol (Vitamin D3) 125 mcg (5,000 unit) tablet Active 125 ug PO DAILY November 29, 2023 12:00am take 1 tablet by mouth once tonia y cholecalciferol (VITAMIN D3) 5,000 unit tab Take 1 tablet by mouth once daily. Active Comment on above: Take 1 tablet by eduardo th once daily. diclofenac sodium 75 mg delayed release oral tablet (2 sources) Nonsteroidal Anti-inflammatory Drug Start: 5 take 1 tablet by mouth twice daily diclofenac EC [address] tablet Indications: Right hip pain Take 1 tablet by mouth 2 times daily. 60 tablet 11/07/2024 Active doxycycline hyclate 100 mg oral capsule (2 sources) Tetracycline-class Drug Start: 4 End: 4 take 2 capsules by mouth once doxycycline hyclate (VIBRAMYCIN) 100 mg capsule Indications: Tick bite of abdominal wall, initial encounter Take 2 capsules by mouth one time only for 1 dose. 2 capsule 0 12/08/2023 12/08/2023 Active Start: 04-10-2023 End: 04-15-2023 take 1 tablet by mouth twice daily doxycycline monohydrate 100 mg tablet Take 1 tablet by mouth twice daily for 5 days. 10 tablet 0 04/10/2023 04/15/2023 Active Comment on above: Take 1 tablet by eduardo twice daily for 5 days. Take 2 capsules by [facility] one time only for 1 dose. estradiol 0.1 mg/ml vaginal cream (1 source) Estrogen Start: Estradiol 0.01 % (0.1 mg/gram) cream Active 0 VAGINAL .COMPLEX 42.5 April 24, 2024 12:00am small amount as directed vaginal every other day X 4 weeks then twice a week; fexofenadine hydrochloride 180 mg oral tablet (10 sources) Histamine-1 Receptor Antagonist Start: take 1 tablet by mouth three times weekly Fexofenadine 180 mg tablet Active 180 mg PO 3 TIMES A WEEK November 29, 2023 10:09am Start: 10-12-2022 End: 11-29-2023 take 1 tablet by mouth twice daily Fexofenadine 180 mg tablet Discontinued 180 mg PO .COMPLEX October 12, 2022 1:00am November 29, 2023 10:11am 180 mg orally bid; on for 3 months dt hives fexofenadine HCl (MECCA HIVES ORAL) Take by mouth. At night for hives per dermatology 0 Active Comment on above: [facility] krill oil 500 mg oral capsule (1 source) Start: 10-16-19 take 1 capsule by mouth once daily Krill Oil 500 mg capsule Active 500 mg PO daily October 16, 2024 1:00am Lactobacillus Combination No.9 (Adult 50 Plus Probiotic) 4 billion cell capsule (1 source) Start: 10-16-19 25 take 4 capsules by mouth once daily Lactobacillus Combination No.9 (Adult 50 Plus Probiotic) 4 billion cell capsule Active 4000 NMA PO daily October 16, 2024 1:00am administer with a meal lisinopril 20 mg oral tablet (20 sources) Angiotensin Converting Enzyme Inhibitor Start: 10-12-19 End: 12-10-19 take 1 tablet by mouth once daily Lisinopril 20 mg tablet Active 20 mg PO DAILY December 09, 2024 1:07pm Comment on above: Take 20 mg by mouth once daily. magnesium citrate (4 sources) MAGNESIUM CITRAT E ORAL Take by mouth. Active MAGNESIUM CITRAT E ORAL Take by mouth. 0 Active Comment on above: Take by mouth. mecobalamin (2 sources) Start: 11-29-2023 take 1 tablet by mouth once daily Mecobalamin (Vitamin B12) 500 mcg tablet,chewable Active 500 ug PO DAILY November 29, 2023 12:00am Start: 11-29-2023 take 500 ug by mouth once tonia y Mecobalamin (Vitamin B12) Active 500 MCG PO DAILY November 29, 2023 12:00am MEDICATION, NON-DATABASE (8 sources) Start: 10-11-2010 take 1000 doses by mouth once daily MEDICATION, NON-DATABASE Take 1,000 Each by mouth once daily. MEDICATION: vit D DOSE: 1000 units ROUTE: po FREQUENCY: daily Physician Name: , Pager Number: , This order is a communication order to pharmacy when the desired medication could not be located. Pharmacy will clarify this order based on the information above. It is not recommended to administer or document administrations until this clarification occurs. 0 10/11/2010 Active Start: 10-11-2010 MEDICATION, NO N-DATABASE Vitamin D3 1000 units takes 1 four times per week 0 10/11/2010 Active MEDICATION, NON- DATABASE Mushroom . Broccoli supplement Active MEDICATION, NON- DATABASE Mushroom . Broccoli supplement 0 Active Comment on above: Vitamin D3 1000 unit s takes 1 four times per week Mushroom . Broccoli supplement Take 1,000 Each by m outh once daily. MEDICATION: vit D DOSE: 1000 units ROUTE: po FREQUENCY: daily Physician Name: , Pager Number: , This order is a communication order to pharmacy when the desired medication could not be located. Pharmacy will clarify this order based on the information above. It is not recommended to administer or document administrations until this clarification occurs. niacinamide 500 mg oral tablet (1 source) Start: 10-16-19 take 1 capsule by mouth once daily Niacinamide 500 mg capsule Active 500 mg PO daily October 16, 2024 1:00am no.82/iron/folate no2 (TL FOLATE ORAL) (4 sources) no.82/iron/folate no2 (TL FOLATE ORAL) Take by mouth. 400 mcg Active no.82/i ramón/folate no2 (TL FOLATE ORAL) Take by mouth. 400 mcg 0 Active Comment on above: Take by mouth. 400 m cg selenium 200 mcg cap (4 sources) selenium 200 mcg cap Take by mouth. Active selenium 200 mcg cap Take by mouth. 0 Active Comment on above: Take by mouth. Completed/Discontinued Medications Medication Drug Class(es) Dates Sig (Normalized) Sig (Original) 24 hr amphetamine aspartate 2.5 mg / amphetamine sulfate 2.5 mg / dextroamphetamine saccharate 2.5 mg / dextroamphetamine sulfate 2.5 mg extended release oral capsule (2 sources) Central Nervous System Stimulant Start: 07-24-2023 End: 08-23-2023 take 1 capsule by mouth once daily, then take 1 capsule by mouth every twenty-four hours Dextroamphetamine- Amphetamine (Adderall Xr) 10 mg capsule,extended release 24hr Discontinued 10 mg PO DAILY July 24, 2023 August 22, 2023 1:00am August 23, 2023 1:04am Problems Problem Classification Problem Date Documented Date Episodic/Chronic Attention-deficit, conduct, and disruptive behavior disorders (2 sources) Attention deficit hyperactivity disorder; Translations: [Attention-deficit hyperactivity disorder, unspecified type] 07-24-2023 Chronic Cancer of breast (7 sources) Malignant tumor of breast ; Translations: [Malignant neoplasm of unspecified site of unspecified female breast] 10-27-2022 Chronic Comment on above: 2016 no chemo or rad iation. + estrogen and progesteronemastectomy right side with reconstruction in 2018 Deficiency and other anemia (4 sources) Anemia; Translations: [Anemia, unspecified] 10-11-2010 Episodic Diabetes mellitus without complication (8 sources) Diabetes mellitus; Translations: [Type 2 diabetes mellitus without complications] Onset: 12-10-19 25 10-27-2022 Chronic Comment on above: gestational 1994 Diabetes or abnormal glucose tolerance complicating ; childbirth; or the puerperium (4 sources) Gestational diabetes mellitus; Translations: [Gestational diabetes mellitus in , unspecified control] 10-11-2010 Episodic Disorders of lipid metabolism (9 sources) Hypercholesterolemia; Translations: [Pure hypercholesterolemia, unspecified] Onset: 12-10-19 25 10-27-2022 Chronic Comment on above: 200-220 Essential hypertension (13 sources) Essential hypertension; Translations: [Essential (primary) hypertension] Onset: 12-10-19 25 10-11-2010 Chronic Comment on above: x30yrs Menopausal disorders (1 source) Atrophic vaginitis; Translations: [Postmenopausal atrophic vaginitis] 05-27-2024 Chronic Comment on above: small topical estrog en cream per patient request/reviewed risks twice a wk Osteoarthritis (7 sources) Osteoarthritis; Translations: [Unspecified osteoarthritis, unspecified site] 10-27-2022 Chronic Comment on above: [address] prior to back surgery Other injuries and conditions due to external causes (1 source) Injury of toe of left foot; Translations: [Unspecified injury of left foot, initial encounter] Episodic Other nervous system disorders (3 sources) Carpal tunnel syndrome of left wrist; Translations: [Carpal tunnel syndrome, left upper limb] 11-29-2023 Chronic Other nervous system disorders (3 sources) Carpal tunnel syndrome, left upper limb; Translations: [Carpal tunnel syndrome] Onset: 01-15-2011-29-2023 Chronic Other non-traumatic joint disorders (5 sources) Hip pain; Translations: [Pain in right hip] 11-07-2024 Episodic Other non-traumatic joint disorders (2 sources) Pain in right hip; Translations: [Pain in right hip] Onset: 11-08-19 Episodic Other screening for suspected conditions (not mental disorders or infectious disease) (5 sources) Patient encounter status; Translations: [Encounter for screening for malignant neoplasm of colon] Onset: 04-20-20 24 10-16-2024 Episodic Residual codes; unclassified (4 sources) Family history of malignant neoplasm of gastrointestinal tract; Translations: [Family history of malignant neoplasm of digestive organs] 10-11-2010 Episodic Residual codes; unclassified (1 source) Family history of cancer of colon; Translations: [Family history of malignant neoplasm of digestive organs] 04-24-2024 Episodic Comment on above: dx in his 40s Skin and subcutaneous tissue infections (1 source) Site-specific infective disorders of skin; Translations: [Local infection of the skin and subcutaneous tissue, unspecified] 04-10-2023 Episodic Spondylosis; intervertebral disc disorders; other back problems (1 source) Cervical radiculopathy; Translations: [Radiculopathy, cervical region] 01-14-2025 Episodic Superficial injury; contusion (2 sources) Insect bite of trunk; Translations: [Insect bite (nonvenomous) of unspecified parts of thorax, initial encounter] 04-10-2023 Episodic Viral infection (3 sources) COVID-19; Translations: [COVID-19] Onset: 05-31-20 Results Test Name Value Interpretation Reference Range Facility NCS and/or EMG Patienton NCS and/or EMG Patient [facility] Pulmonary Services/Neurology [address] [place] [address] MR#: [id number] Acct: [id number] Name: EDITH LINTON Rep #: [id number] : 1965 59 From: Tam David MD Referring Dr: Terri Chamberlain MD Status: REG CLI Location: [facility] Date: 01/08/25 Sex: F C NCS and/or EMG Patient Report Ordering Doctor: Terri Chamberlain DATE OF SERVICE: 01/08/25 Edith presents with complaints of numbness and tingling in the left hand. Electrodiagnostic findings: Left median motor nerve demonstrates normal distal latency and amplitude with reduced conduction velocity. Left ulnar motor response is within normal limits. Normal left median sensory response. Normal left ulnar radial sensory responses. Prolonged left median F???wave. Needle EMG testing was performed the left upper limb. All muscles tested showed no evidence of denervation with normal motor unit action potentials. Electrodiagnostic assessment: This an abnormal study in the left upper limb 1. Electrodiagnostic findings suggestive of left-sided median mononeuropathy. This consistent with mild to moderate left carpal tunnel syndrome. 2. Electrodiagnostic evidence is noted for cervical radiculopathy or brachial plexopathy Multi Select Codes Neurology Neurology Interp Codes: 62699-22 Musc test done w/n test comp (interp) and 73585-38 Nrv cndj test 7- 8 studies (interp) 01/08/25 1458 Date Tam David MD CC: Dr. Tam David MD; Dr. Terri Chamberlain MD Date Dictated: 01/08/251455 Date Transcribed: 01/08/251455 Wireless Watcher: ELIZABETH Signed Normal [facility] Colonoscopy Reporton 025 Colonoscopy Report [facility] Medical Records Department [address] [place] [address] [place] [address] Colonoscopy Report MR#: [id number] Acct: [id number] Name: EDITH LINTON Rep #: [id number] : 1965 59 From: Jerald Mckeon DO PCP: Dr. Terri Chamberlain MD Status:REG [facility] Patient Name: Edith Linton Procedure Date: 12/19/2024 7:34 AM Date of : 1965 Age: 59 Procedure: Colonoscopy Indications: Screening for colorectal malignant neoplasm Providers: Jerald Mckeon DO Referring MD: Terri Chamberlain Medicines: Monitored Anesthesia Care Patient Profile: This is a 59 year old female. Refer to note in patient chart for documentation of history and physical. Last Colonoscopy: 5 years ago. Complications: No immediate complications. Procedure: Pre-Anesthesia Assessment: - Prior to the procedure, a History and Physical was performed, and patient medications and allergies were reviewed. The patient is competent. The risks and benefits of the procedure and the sedation options and risks were discussed with the patient. All questions were answered and informed consent was obtained. Patient identification and proposed procedure were verified by the physician in the pre-procedure area. Mental Status Examination: alert and oriented. Airway Examination: normal oropharyngeal airway and neck mobility. Respiratory Examination: clear to auscultation. CV Examination: normal. Prophylactic Antibiotics: The patient does not require prophylactic antibiotics. Prior Anticoagulants: The patient has taken no anticoagulant or antiplatelet agents except for NSAID medication. ASA Grade Assessment: II - A patient with mild systemic disease. After reviewing the risks and benefits, the patient was deemed in satisfactory condition to undergo the procedure. The anesthesia plan was to use monitored anesthesia care (MAC). Immediately prior to administration of medications, the patient was re-assessed for adequacy to receive sedatives. The heart rate, respiratory rate, oxygen saturations, blood pressure, adequacy of pulmonary ventilation, and response to care were monitored throughout the procedure. The physical status of the patient was re-assessed after the procedure. After I obtained informed consent, the scope was passed under direct vision. Throughout the procedure, the patient's blood pressure, pulse, and oxygen saturations were monitored continuously. The Colonoscope was introduced through the anus and advanced to the cecum, identified by appendiceal orifice and ileocecal valve. The colonoscopy was performed without difficulty. The patient tolerated the procedure well. The quality of the bowel preparation was adequate. The ileocecal valve, appendiceal orifice, and rectum were photographed. Scope In: 7:41:46 AM Scope Withdrawal Time 0 hours 9 minutes 41 seconds Scope Out: 8:01:34 AM Total Procedure Duration Time 0 hours 19 minutes 48 seconds Findings: The perianal and digital rectal examinations were normal. The colon (entire examined portion) appeared normal. No additional abnormalities were found on retroflexion. Impression: - The entire examined colon is normal. - No specimens collected. Recommendation: - Discharge patient to home. - Resume previous diet. - Continue present medications. - Repeat colonoscopy in 5 years for screening purposes. Procedure Code(s): --- Professional --- G0121, Colorectal cancer screening; colonoscopy on individual not meeting criteria for high risk CPT copyright 2021 [employer] [place] [employer]. All rights reserved. The codes documented in this report are preliminary and upon animal herder review may be revised to meet current compliance requirements. Jerald Mckeon DO 12/19/2024 8:10:07 AM This report has been signed electronically. Number of Addenda: 0 Note Initiated On: 12/19/2024 7:34 AM 12/19/24 0810 Date Jerald Jiménez Signature: Date (if indicated) CC: Dr. Terri Chamberlain MD; Jerald Mckeon DO Date Dictated: 12/19/24733 Date Transcribed: Wireless Watcher: RF Signed Normal [facility] Insulin Levelon 12-19-2024 INSULIN,FASTING 2.8 uIU/mL Normal 2.6-24.9 [facility] Comment on above: Result Comment: Perf ormed at: [facility] [address] [id number] Chief Environmental Commitment Officer: Dreek Michel PhD, Phone: [phone] Performed By: #### L 100.0100, L500.4100, L3300.3500, L506.1001, L501.9985, L503.0106, L501.7820, L500.4050 ####[facility] [address] [facility] [place], [address] MR/POSTOP.ANEon 12-19-2024 MR/POSTOP.[facility] Medical Records Department [address] [place] [address] Anesthesia Postop Eval I 12/19/24813 MR#: [id number] Acct: [id number] Name: EDITH LINTON Rep #: [id number] : 1965 59 From: Dennis Miranda PCP: Dr. Terri Chamberlain MD Status:REG [facility] Y Race: C Location: [place] [address] Anesthesia: Postop Eval I Current Vital Signs Temperature: 97.7 F Pulse Rate: 57 Blood Pressure: 95/60 Respiratory Rate: 16 Pulse Ox: 97 Oxygen Delivery Method: Room Air Assessment Airway patent: Yes Spontaneous unlabored respirations: Yes Mental status: Asleep nausea: No Vomiting: No Anesthesia Complication: No Fluid Hydration Crystalloid volume administer (ml): 400 Total IV fluid infused: 400 Progress Note Anesthesia document: Postop Eval 1 completed: Yes 12/19/24814 Date Dennis Miranda Cosignzuleyka Signature: Date CC: Signed Normal [facility] [id number] 12-19-2024 MR/POSTOPAN2 [facility] Medical Records Department [address] [place] [address] Anesthesia Postop Eval II 12/19/24 1040 MR#: [id number] Acct: [id number] Name: EDITH LINTON Rep #: [id number] : 1965 59 From: Quinton Noriega MD PCP: Dr. Terri Chamberlain MD Status:DEP [facility] Y Race: C Location: EN Anesthesia Postop Eval I Sum Postop Eval Completion status Anesthesia document: Postop Eval 1 completed: Yes Anesthesia Postop Eval I Summary Anesthesia Postop Eval I Summary: Anesthesia Postop Eval I: Assessment Summary Airway patent Yes 12/19/24 08:15 [email or web address] Spontaneous unlabored Yes 12/19/24 08:15 [email or web address] respirations Mental status Asleep 12/19/24 08:15 [email or web address] nausea No 12/19/24 08:15 [email or web address] Vomiting No 12/19/24 08:15 [email or web address] Anesthesia Postop Eval I: Fluid Summary Crystalloid volume administer 400 12/19/24 08:15 [email or web address] (ml) Colloids volume administered ( ml) Blood Product volume administered (ml) Total IV fluid infused 400 12/19/24 08:15 [email or web address] Anesthesia Postop Eval I: Summary Notes Anesthesia Complication No 12/19/24 08:15 [email or web address] Anesthesia Complication Comment: Post-operative progress note Anesthesia: Postop Eval II Evaluation Mental status: Awake and Calm Pain Level: 0 nausea: No Vomiting: No Complications Anesthesia Complication: No 12/19/24 1041 Date Quinton Noriega MD Cosigner Signature: Date CC: Signed Normal [facility] Absolute lymphocyte countOrd ered By: Terri Chamberlain on 12-18-2024 Lymphocytes Auto (Unsp spec) [#/Vol] 1.51 10*3/uL 0.83-4.51 [facility] Absolute neutrophil countOrd ered By: Terri Chamberlain on 12-18-2024 Neutrophils (Bld) [#/Vol] 2.8 10*3/uL 2.0-7.7 [facility] Anion gap in Serum or Plasma Ordered By: Terri Chamberlain on 12-18-2024 Anion gap [Moles/Vol] 11 mmol/L 5-15 [facility] Automated lymphocyte count a s percentage of total leukocytesOrdered By: Terri Chamberlain on 12-18-2024 Lymphocytes/100 WBC Auto (Unsp spec) 30.3 % 19-41 [facility] BUN/creatinine ratioOrdered By: Terri Chamberlain on 12-18-2024 Urea nitrogen/Creatinine [Mass ratio] 11.0 mg/mg 10-20 [facility] Basophil percentageOrdered B y: Terri Chamberlain on 12-18-2024 Basophils/100 WBC (Bld) 1.4 % High 0-[address] [facility] Bilirubin, totalOrdered By: Terri Chamberlain on 12-18-2024 Bilirubin [Mass/Vol] 0.51 mg/dL 0.00-1.30 [facility] CBC W/Diff, Automatedon 11-21 Absolute Lymph 1.51 X10 3/uL Normal 0.83-4.51 [facility] Comment on above: Performed By: #### L 100.0100, L500.4100, L3300.3500, L506.1001, L501.9985, L503.0106, L501.9520, L500.4050 #### [facility] [address] [place], [place], [address] Absolute Neut 2.8 X10 3/uL Normal 2.0-7.7 [facility] Comment on above: Performed By: #### L 100.0100, L500.4100, L3300.3500, L506.1001, L501.9985, L503.0106, L501.9520, L500.4050 #### [facility] [address] [place], [address] Basophils/100 WBC (Bld) 1.4 % High 0-[address] [facility] Comment on above: Performed By: #### L 100.0100, L500.4100, L3300.3500, L506.1001, L501.9985, L503.0106, L501.9520, L500.4050 #### [facility] [address] [place], [address] Eosinophils/100 WBC (Bld) 1.2 % Normal 0-5 [facility] Comment on above: Performed By: #### L 100.0100, L500.4100, L3300.3500, L506.1001, L501.9985, L503.0106, L501.9520, L500.4050 #### [facility] [address] [place], [address] Erythrocyte distribution width (RBC) [Ratio] 11.6 % Normal 11.6-14.6 [facility] Comment on above: Performed By: #### L 100.0100, L500.4100, L3300.3500, L506.1001, L501.9985, L503.0106, L501.9520, L500.4050 #### [facility] [address] [place], [address] Hematocrit (Bld) [Volume fraction] 40.0 % Normal 37-47 [facility] Comment on above: Performed By: #### L 100.0100, L500.4100, L3300.3500, L506.1001, L501.9985, L503.0106, L501.9520, L500.4050 #### [facility] [address] [facility] [place], [address] Hemoglobin (Bld) [Mass/Vol] 14.2 g/dL Normal 12.0-15.0 [facility] Comment on above: Performed By: #### L 100.0100, L500.4100, L3300.3500, L506.1001, L501.9985, L503.0106, L501.9520, L500.4050 #### [facility] [address] [facility] [place], [address] IG% 0.200 Normal 0.0-0.9 [facility] Comment on above: Result Comment: IG% - Immature Granulocytes (promyelocytes, myelocytes and metamyelocytes) > 1% indicates that a LEFT SHIFT is Present. Performed By: #### L 100.0100, L500.4100, L3300.3500, L506.1001, L501.9985, L503.0106, L501.9520, L500.4050 #### [facility] [address] [place], [address] Lymphocytes/100 WBC (Bld) 30.3 % Normal 19-41 [facility] Comment on above: Performed By: #### L 100.0100, L500.4100, L3300.3500, L506.1001, L501.9985, L503.0106, L501.9520, L500.4050 #### [facility] [address] [facility] [place], [address] MCH (RBC) [Entitic mass] 32.5 pg High 27.0-32.0 [facility] Comment on above: Performed By: #### L 100.0100, L500.4100, L3300.3500, L506.1001, L501.9985, L503.0106, L501.9520, L500.4050 #### [facility] [address] [facility] [place], [address] MCHC (RBC) [Mass/Vol] 35.5 g/dL Normal 32-36 [facility] Comment on above: Performed By: #### L 100.0100, L500.4100, L3300.3500, L506.1001, L501.9985, L503.0106, L501.9520, L500.4050 #### [facility] [address] [place], [address] MCV (RBC) [Entitic vol] 91.5 fL Normal 81-[address] [facility] Comment on above: Performed By: #### L 100.0100, L500.4100, L3300.3500, L506.1001, L501.9985, L503.0106, L501.9520, L500.4050 #### [facility] [address] [place], [address] Monocytes/100 WBC (Bld) 11.0 % High 0-10 [facility] Comment on above: Performed By: #### L 100.0100, L500.4100, L3300.3500, L506.1001, L501.9985, L503.0106, L501.9520, L500.4050 #### [facility] [address] [place], [address] Neutrophils/100 WBC (Bld) 55.9 % Normal 47-70 [facility] Comment on above: Performed By: #### L 100.0100, L500.4100, L3300.3500, L506.1001, L501.9985, L503.0106, L501.9520, L500.4050 #### [facility] [address] [place], [address] Nucleated RBC (Bld) [#/Vol] 0 10*3/uL Normal 0-5 [facility] Comment on above: Performed By: #### L 100.0100, L500.4100, L3300.3500, L506.1001, L501.9985, L503.0106, L501.9520, L500.4050 #### [facility] [address] [place], [address] Platelet mean volume (Bld) [Entitic vol] 9.6 fL Normal 6.2-12.0 [facility] Comment on above: Performed By: #### L 100.0100, L500.4100, L3300.3500, L506.1001, L501.9985, L503.0106, L501.9520, L500.4050 #### [facility] [address] [place], [address] Platelets (Bld) [#/Vol] 243 10*3/uL Normal 150-450 [facility] Comment on above: Performed By: #### L 100.0100, L500.4100, L3300.3500, L506.1001, L501.9985, L503.0106, L501.9520, L500.4050 #### [facility] [address] [place], [address] RBC (Bld) [#/Vol] 4.37 10*6/uL Normal 4.2-5.4 [facility] Comment on above: Performed By: #### L 100.0100, L500.4100, L3300.3500, L506.1001, L501.9985, L503.0106, L501.9520, L500.4050 #### [facility] [address] [place], [address] RDW SD 38.9 fl Normal 35.1-43.9 [facility] Comment on above: Performed By: #### L 100.0100, L500.4100, L3300.3500, L506.1001, L501.9985, L503.0106, L501.9520, L500.4050 #### [facility] [address] [place], [address] WBC (Bld) [#/Vol] 5.0 10*3/uL Normal 4.4-11.0 [facility] Comment on above: Performed By: #### L 100.0100, L500.4100, L3300.3500, L506.1001, L501.9985, L503.0106, L501.9520, L500.4050 #### [facility] [address] [place], [place], [id number] Calculated very low density lipoprotein (VLDL) cholesterol measurementOrdered By: Terri Chamberlain on 12-18-2024 Calculated very low density lipoprotein (VLDL) cholesterol measurement 19 mg/dL 5-40 [facility] Carbon dioxide, total [Moles /volume] in Central venous bloodOrdered By: Terri Chamberlain on 12-18-2024 CO2 [Moles/Vol] 25.2 mmol/L 21.0-32.0 [facility] Chloride assayOrdered By: Yusra Chamberlain on 12-18-2024 Chloride [Moles/Vol] 101 mmol/L 98-108 [facility] Comprehensive Metabolic Prof ilon 12-18-2024 Albumin [Mass/Vol] 4.2 g/dL Normal 3.4-4.8 [facility] Comment on above: Performed By: #### L 100.0100, L500.4100, L3300.3500, L506.1001, L501.9985, L503.0106, L501.9520, L500.4050 #### [facility] [address] [place], [place], [id number] Albumin/Globulin [Mass ratio] 1.6 {ratio} Normal 0.9-2.4 [facility] Comment on above: Performed By: #### L 100.0100, L500.4100, L3300.3500, L506.1001, L501.9985, L503.0106, L501.9520, L500.4050 #### [facility] [address] [place], [place], [id number] ALK PHOS 89 U/L Normal 35-104 [facility] Comment on above: Performed By: #### L 100.0100, L500.4100, L3300.3500, L506.1001, L501.9985, L503.0106, L501.9520, L500.4050 #### [facility] [address] [place], [address] (805) ALT [Catalytic activity/Vol] 22 U/L Normal <=34 [facility] Comment on above: Performed By: #### L 100.0100, L500.4100, L3300.3500, L506.1001, L501.9985, L503.0106, L501.9520, L500.4050 #### [facility] [address] [place], [address] AST [Catalytic activity/Vol] 32 U/L Normal <=31 [facility] Comment on above: Performed By: #### L 100.0100, L500.4100, L3300.3500, L506.1001, L501.9985, L503.0106, L501.9520, L500.4050 #### [facility] [address] [place], [place], [address] Bilirubin [Mass/Vol] 0.51 mg/dL Normal 0.00-1.30 [facility] Comment on above: Performed By: #### L 100.0100, L500.4100, L3300.3500, L506.1001, L501.9985, L503.0106, L501.9520, L500.4050 #### [facility] [address] [place], [place], [phone] (283) BUN/CRE 11.0 RATIO Normal 10-20 [facility] Comment on above: Performed By: #### L 100.0100, L500.4100, L3300.3500, L506.1001, L501.9985, L503.0106, L501.9520, L500.4050 #### [facility] [address] [place], [address] Calcium [Mass/Vol] 9.1 mg/dL Normal 7.6-11.0 [facility] Comment on above: Performed By: #### L 100.0100, L500.4100, L3300.3500, L506.1001, L501.9985, L503.0106, L501.9520, L500.4050 #### [facility] [address] [place], [address] Chloride [Moles/Vol] 101 mmol/L Normal 98-108 [facility] Comment on above: Performed By: #### L 100.0100, L500.4100, L3300.3500, L506.1001, L501.9985, L503.0106, L501.9520, L500.4050 #### [facility] [address] [place], [address] CO2 [Moles/Vol] 25.2 mmol/L Normal 21.0-32.0 [facility] Comment on above: Performed By: #### L 100.0100, L500.4100, L3300.3500, L506.1001, L501.9985, L503.0106, L501.9520, L500.4050 #### [facility] [address] [place], [address] Creatinine [Mass/Vol] 0.98 mg/dL Normal 0.70-1.20 [facility] Comment on above: Performed By: #### L 100.0100, L500.4100, L3300.3500, L506.1001, L501.9985, L503.0106, L501.9520, L500.4050 #### [facility] [address] [place], [address] GAP 11 Normal 5-15 [facility] Comment on above: Performed By: #### L 100.0100, L500.4100, L3300.3500, L506.1001, L501.9985, L503.0106, L501.9520, L500.4050 #### [facility] [address] [place], [address] GFR/1.73 sq M.predicted among non-blacks MDRD (S/P/Bld) [Vol rate/Area] 66 mL/min/{1.73_m2} Normal >60 [facility] Comment on above: Result Comment: mL/m in/1.73m2 CKD-EPI Creatinine Equation (2020) Performed By: #### L 100.0100, L500.4100, L3300.3500, L506.1001, L501.9985, L503.0106, L501.9520, L500.4050 #### [facility] [address] [place], [address] Globulin (S) [Mass/Vol] 2.6 g/dL Normal 2.2-4.2 [facility] Comment on above: Performed By: #### L 100.0100, L500.4100, L3300.3500, L506.1001, L501.9985, L503.0106, L501.9520, L500.4050 #### [facility] [address] [place], [address] Glucose [Mass/Vol] 85 mg/dL Normal 70-99 [facility] Comment on above: Performed By: #### L 100.0100, L500.4100, L3300.3500, L506.1001, L501.9985, L503.0106, L501.9520, L500.4050 #### [facility] [address] [place], [address] Potassium [Moles/Vol] 4.0 mmol/L Normal 3.3-5.1 [facility] Comment on above: Performed By: #### L 100.0100, L500.4100, L3300.3500, L506.1001, L501.9985, L503.0106, L501.9520, L500.4050 #### [facility] [address] [place], [address] Sodium [Moles/Vol] 136 mmol/L Normal 133-145 [facility] Comment on above: Performed By: #### L 100.0100, L500.4100, L3300.3500, L506.1001, L501.9985, L503.0106, L501.9520, L500.4050 #### [facility] [address] [place], [address] T PROT 6.8 g/dL Normal 5.9-8.4 [facility] Comment on above: Performed By: #### L 100.0100, L500.4100, L3300.3500, L506.1001, L501.9985, L503.0106, L501.9520, L500.4050 #### [facility] [address] [place], [address] Urea nitrogen [Mass/Vol] 11 mg/dL Normal 4-19 [facility] Comment on above: Performed By: #### L 100.0100, L500.4100, L3300.3500, L506.1001, L501.9985, L503.0106, L501.9520, L500.4050 #### [facility] [address] [place], [address] Eosinophil percentageOrdered By: Terri Chamberlain on 12-18-2024 Eosinophils/100 WBC (Bld) 1.2 % 0-5 [facility] Erythrocyte distribution wid th ratioOrdered By: Terri Chamberlain on 12-18-2024 Erythrocyte distribution width (RBC) [Ratio] 11.6 % 11.6-14.6 [facility] Erythrocyte distribution wid th standard deviationOrdered By: Terri Chamberlain on 12-18-2024 Erythrocyte distribution width (RBC) [Ratio] 38.9 fl 35.1-43.9 [facility] Glomerular filtration rate ( GFR) estimation/1.73 sq m using serum, plasma, or whole bOrdered By: Terri Chamberlain on 12-18-2024 GFR/1.73 sq M.predicted among non-blacks MDRD (S/P/Bld) [Vol rate/Area] 66 mL/min/{1.73_m2} >60 [facility] Comment on above: mL/min/1.73m2 CKD-EP I Creatinine Equation (2020) Hematocrit Auto (Bld) [Volum e fraction]Ordered By: Terri Chamberlain on 12-18-2024 Hematocrit (Bld) [Volume fraction] 40.0 % 37-47 [facility] Hemoglobin A1con 12-18-2024 HbA1c (Bld) [Mass fraction] 5.3 % Normal <=5.6 [facility] Comment on above: Result Comment: Norm al < 5.7 % Prediabetic 5.7 - 6.4 % Diabetic >or= 6.5 % Please note range changes. Performed By: #### L 100.0100, L500.4100, L3300.3500, L506.1001, L501.9985, L503.0106, L501.9520, L500.4050 #### [facility] [address] [place] [address]. [place], [place], [id number] Hemoglobin A1c percentageOrd ered By: Terri Chamberlain on 12-18-2024 HbA1c (Bld) [Mass fraction] 5.3 % <5.7 [facility] Comment on above: Normal < 5.7 % Predi abetic 5.7 - 6.4 % Diabetic >or= 6.5 % Please note range changes. Hemoglobin measurementOrdere d By: Terri Chamberlain on 12-18-2024 Hemoglobin (Bld) [Mass/Vol] 14.2 g/dL 12.0-15.0 [facility] Immature granulocytes/100 WB C Auto (Bld)Ordered By: Terri Chamberlain on 12-18-2024 Immature granulocytes/100 WBC (Bld) 0.200 % 0.0-0.9 [facility] Comment on above: IG% - Immature Granu locytes (promyelocytes, myelocytes and metamyelocytes) > 1% indicates that a LEFT SHIFT is Present. LDL calc ser/plasOrdered By: Terri Chamberlain on 12-18-2024 Cholesterol in LDL [Mass/Vol] 149 mg/dL [facility] Comment on above: Qjltyiedcn=769-455 m g/dL & Higher Jdlj=584 mg/dL or greater Laboratory - Chemistry and C hemistry - challengeOrdered By: Terri Chamberlain on 12-18-2024 AST [Catalytic activity/Vol] 32 U/L <32 [facility] Lipid Profileon 12-18-2024 CHOL:HDL 4.21 Normal [facility] Comment on above: Performed By: #### L 100.0100, L500.4100, L3300.3500, L506.1001, L501.9985, L503.0106, L501.9520, L500.4050 #### [facility] [address] [place] [place], [address] Cholesterol [Mass/Vol] 220 mg/dL High <=200 [facility] Comment on above: Result Comment: Chol esterol level, Desirable <200 mg/dL Borderline high cholesterol 200-239 mg/dL High cholesterol >=240 mg/dL Recommendations of the NCEP Adult Treatment Panel for the following risk-cutoff thresholds for the [place] population. Performed By: #### L 100.0100, L500.4100, L3300.3500, L506.1001, L501.9985, L503.0106, L501.9520, L500.4050 #### [facility] [address] [place], [address] Cholesterol in HDL [Mass/Vol] 52 mg/dL Normal [facility] Comment on above: Result Comment: [place] on[place] Cholesterol Education Program (NCEP) guidelines: <40 mg/dL: Low HDL-cholesterol (major risk factor for CHD) >= 60 mg/dL: High HDL-cholesterol (negative risk factor for CHD) HDL-cholesterol is affected by a number of factors, e.g. smoking, exercise, hormones, sex and age. Performed By: #### L 100.0100, L500.4100, L3300.3500, L506.1001, L501.9985, L503.0106, L501.9520, L500.4050 #### [facility] [address] [place], [address] Cholesterol in LDL [Mass/Vol] 149 mg/dL Normal [facility] Comment on above: Result Comment: Bord uflyks=811-124 mg/dL Higher Iubg=813 mg/dL or greater Performed By: #### L 100.0100, L500.4100, L3300.3500, L506.1001, L501.9985, L503.0106, L501.9520, L500.4050 #### [facility] [address] [place], [address] Cholesterol in VLDL [Mass/Vol] 19 mg/dL Normal 5-40 [facility] Comment on above: Performed By: #### L 100.0100, L500.4100, L3300.3500, L506.1001, L501.9985, L503.0106, L501.9520, L500.4050 #### [facility] [address] [place], [address] Triglyceride [Mass/Vol] 94 mg/dL Normal [facility] Comment on above: Result Comment: The drugs N-Acetylcysteine and Metamizole may falsely depress this assay. Normal range: <150 mg/dL Borderline High: 150-199 mg/dL High: 200-499 mg/dL Very High: >500 mg/dL Performed By: #### L 100.0100, L500.4100, L3300.3500, L506.1001, L501.9985, L503.0106, L501.9520, L500.4050 #### [facility] [address] [place], [address] MCV (mean corpuscular volume ) determinationOrdered By: Terri Chamberlain on 12-18-2024 MCV (RBC) [Entitic vol] 91.5 fL 81-[address] [facility] Mean corpuscular hemoglobin (MCH) determinationOrdered By: Terri Chamberlain on 12-18-2024 MCH (RBC) [Entitic mass] 32.5 pg High 27.0-32.0 [facility] Mean corpuscular hemoglobin concentration (MCHC) determinationOrdered By: Terri Chamberlain on 12-18-2024 MCHC (RBC) [Mass/Vol] 35.5 g/dL 32-36 [facility] Mean platelet volume determi nationOrdered By: Terri Chamberlain on 12-18-2024 Platelet mean volume (Bld) [Entitic vol] 9.6 fL 6.2-12.0 [facility] Monocyte percentageOrdered B y: Terri Chamberlain on 12-18-2024 Monocytes/100 WBC (Bld) 11.0 % High 0-[address] [facility] Neutrophil percentageOrdered By: Terri Chamberlain on 12-18-2024 Neutrophils/100 WBC (Bld) 55.9 % 47-70 [facility] Nucleated red blood cell per centageOrdered By: Terri Chamberlain on 12-18-2024 Nucleated RBC/100 WBC (Bld) [Ratio] 0 % 0-5 [facility] Platelet countOrdered By: Yusar Chamberlain on 12-18-2024 Platelets (Bld) [#/Vol] 243 10*3/uL 150-450 [facility] Potassium measurement (mass/ volume)Ordered By: Terri Chamberlain on 12-18-2024 Potassium (Unsp spec) [Mass/Vol] 4.0 mmol/L 3.3-5.1 [facility] RBC Auto (Bld) [#/Vol]Ordere d By: Terri Chamberlain on 12-18-2024 RBC (Bld) [#/Vol] 4.37 10*6/uL 4.2-5.4 [facility] Screening total cholesterol/ high density lipoprotein (HDL) cholesterol ratioOrdered By: Terri Chamberlain on 12-18-2024 Cholesterol.total/T[place] sterol in HDL [Mass ratio] 4.21 {ratio} [facility] Serum creatinine measurement (mass/volume)Ordered By: Terri Chamberlain on 12-18-2024 Creatinine [Mass/Vol] 0.98 mg/dL 0.70-1.20 [facility] Serum globulin measurementOr dered By: Terri Chamberlain on 12-18-2024 Globulin (S) [Mass/Vol] 2.6 g/dL 2.2-4.[address] [facility] Serum glucose measurement (m ass/volume)Ordered By: Terri Chamberlain on 12-18-2024 Glucose [Mass/Vol] 85 mg/dL 70-99 [facility] Serum or plasma alanine correa otransferase (ALT) measurementOrdered By: Terri Chamberlain on 12-18-2024 ALT [Catalytic activity/Vol] 22 U/L <35 [facility] Serum or plasma albumin jackie urement (mass/volume)Ordered By: Terri Chamberlain on 12-18-2024 Albumin [Mass/Vol] 4.2 g/dL 3.4-4.8 [facility] Serum or plasma albumin/glob ulin mass ratioOrdered By: Terri Chamberlain on 12-18-2024 Albumin/Globulin [Mass ratio] 1.6 {ratio} 0.9-2.4 [facility] Serum or plasma alkaline brian sphatase measurementOrdered By: Terri Chamberlain on 12-18-2024 ALP [Catalytic activity/Vol] 89 U/L 35-104 [facility] Serum or plasma calcium jackie urement (mass/volume)Ordered By: Terri Chamberlain on 12-18-2024 Calcium [Mass/Vol] 9.1 mg/dL 7.6-11.0 [facility] Serum or plasma cholesterol in HDL measurement (mass/volume)Ordered By: Terri Chamberlain on 12-18-2024 Cholesterol in HDL [Mass/Vol] 52 mg/dL >40 [facility] Comment on above: National Cholesterol Education Program (NCEP) guidelines:<40 mg/dL: Low HDL-cholesterol (major risk factor for CHD)>= 60 mg/dL: High HDL-cholesterol (negative risk factor for CHD)HDL-cholesterol is affected by a number of factors, e.g. smoking, exercise, hormones, sex and age. Serum or plasma cholesterol measurement (mass/volume)Ordered By: Terri Chamberlain on 12-18-2024 Cholesterol [Mass/Vol] 220 mg/dL High <201 [facility] Comment on above: Cholesterol level, D esirable <200 mg/dLBorderline high cholesterol 200-239 mg/dLHigh cholesterol >=240 mg/dLRecommendations of the NCEP Adult Treatment Panel for the following risk-cutoff thresholds for the [place] population. Serum or plasma insulin jackie urement (mass/volume)Ordered By: Terri Chamberlain on 12-18-2024 Insulin [Mass/Vol] 2.8 uIU/mL 2.6-24.9 [facility] Comment on above: Performed at: [address] [id number] Director: Derek Michel PhD, Phone: [phone] Serum or plasma urea nitroge n measurement (mass/volume)Ordered By: Terri Chamberlain on 12-18-2024 Urea nitrogen [Mass/Vol] 11 mg/dL 4-19 [facility] Sodium levelOrdered By: Mindi Chamberlain on 12-18-2024 Sodium [Moles/Vol] 136 mmol/L 133-145 [facility] TSH DL <= 0.005 mIU/L QnOrde red By: Terri Chamberlain on 12-18-2024 TSH Qn 1.450 uIU/mL 0.300-4.200 [facility] Thyroid Stim Hormone (TSH)on 12-18-2024 TSH 1.450 uIU/mL Normal 0.300-4.200 [facility] Comment on above: Performed By: #### L 100.0100, L500.4100, L3300.3500, L506.1001, L501.9985, L503.0106, L501.9520, L500.4050 #### [facility] [address] [place], [address] Total proteinOrdered By: Marietta Chamberlain on 12-18-2024 Protein [Mass/Vol] 6.8 g/dL 5.9-8.4 [facility] Triglycerides measurementOrd ered By: Terri Chamberlain on 12-18-2024 Triglyceride [Mass/Vol] 94 mg/dL <[address] [facility] Comment on above: The drugs N-Acetylcy steine and Metamizole may falsely depress this assay. Normal range: <150 mg/dLBorderline High: 150-199 mg/dLHigh: 200-499 mg/dLVery High: >500 mg/dL Vitamin B12on 12-18-2024 Cobalamin (Vitamin B12) [Mass/Vol] 938 pg/mL High 180-914 [facility] Comment on above: Performed By: #### L 100.0100, L500.4100, L3300.3500, L506.1001, L501.9985, L503.0106, L501.9520, L500.4050 #### [facility] [address] [place], [place], [id number] Vitamin B12 ser/plasOrdered By: Terri Chamberlain on 12-18-2024 Cobalamin (Vitamin B12) [Mass/Vol] 938 pg/mL High 180-914 [facility] Vitamin D,25 Hydroxyon 12-18 Vitamin D 25-OH 36.2 ng/mL Normal 30-100 [facility] Comment on above: Result Comment: Vi min D Status Deficiency: <20 ng/mL (50nmol/L) Insufficiency: 20-30 ng/mL (50-75 nmol/L) Sufficiency: 30-100 ng/mL (75-250 nmol/L) Toxicity: >100 ng/mL (>250 nmol/L) Performed By: #### L 100.0100, L500.4100, L3300.3500, L506.1001, L501.9985, L503.0106, L501.9520, L500.4050 ####[facility] [id number] [place], [address] White blood cell (WBC) count Ordered By: Terri Chamberlain on 12-18-2024 WBC (Bld) [#/Vol] 5.0 10*3/uL 4.4-11.0 [facility] MR/PATHeriberto 12-16-2024 MR/PAT.[facility] Medical Records Department [address] [place] [address] PAT - Anesthesia 12/16/24 1618 MR#: [id number] Acct: [id number] Name: EDITH LINTON Rep #: [id number] : 1965 59 From: Esteban Jeff MD PCP: Dr. 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 When Was Last Pacemaker Check QUESTION #4 FULL TEXT: You/Your Family Experience fever (hyperthermia) with Anesthesia Last Oral Intake Last Oral intake: Last Oral Intake NPO since Meds taken in AM with sips of water? 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 Female Yes 12/16/24 15:59 HX of Motion Sickness No 12/16/24 15:59 HX of N/V After Surgery No 12/16/24 15:59 Non-Smoker Yes 12/16/24 15:59 Duration of Surgery greater No 12/16/24 15:59 than 60 minutes Number of Risk Factors 2 12/16/24 15:59 PONV Score Moderate Risk 12/16/24 15:59 Height Weight Height Weight: Anesthesia: Height Weight Height 5 ft 2 in 10/16/24 10:15 Respiratory Assessment Respiratory Assessment - lamination operator: Respiratory Tract Infection Hx - lamination operator Hx Respiratory Tract Infection No 12/16/24 15:59 STOP Sleep Apnea STOP Sleep Apnea - 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 Has anyone observed you stop No 12/16/24 15:59 breathing during sleep? STOP Results Negative 12/16/24 15:59 QUESTION #5 FULL TEXT : Do you snore loudly (louder than talking or can be heard through closed doors)? 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 Specify any problems Hx of Preganancy in last 3 N/A 12/16/24 15:59 Months Nurse Filling Out Transfusion NBUCHER 12/16/24 15:59 Questions: Date: 12/16/24 12/16/24 15:59 Time: 16:00 12/16/24 15:59 Patient unable to answer at this time (ie. confused, unrespo /Reproducti on History /Reproducti ve History - lamination operator: /Reproducti ve Hx- lamination operator Hx Now No 12/16/24 15:59 Gestational Age (in weeks): EDC: Hx Hx Para Hx Section SAB No 12/16/24 15:59 PFS Medical History (Updated 12/16/24 @ 16:05 by Hanane Marcus) Wears contact lenses Cancer Non-smoker History of Holter monitoring Adult wellness visit Family history of malignant neoplasm of colon in relative diagnosed when younger than 50 years of age Hives Osteoarthritis High cholesterol Hypertension Hearing problem Diabetes Breast cyst Bone fracture Anemia Home Medications ???Medication ???Instructions ???Recorded ???Last Taken ???Type biotin 10,000 mcg chewable tablet 10,000 mcg PO DAILY 11/29/23 Unkn own History (Hair, Skin and Nails (biotin)) cholecalciferol (vitamin D3) 125 125 mcg PO DAILY 11/29/23 Unknown History mcg (5,000 unit) tablet fexofenadine 180 mg tablet 180 mg PO 3XW 11/29/23 Unknown His tory mecobalamin (vitamin B12) 500 mcg 500 mcg PO DAILY 11/29/23 Unknown History chewable tablet estradiol 0.01% (0.1 mg/gram) See Rx Instructions vaginal Unknown Rx vaginal cream .COMPLEX #42.5 g (more content not included)... Normal [facility] MR/BMS.IMBon 12-09-2024 MR/BMS.IMB [facility] [address] [place] [address] OFFICE VISIT Date of Service: 12/09/24 MR#: [id number] Acct: [id number] Name: EDITH LINTON Rep #: [id number] : 1965 Provider: Dr. 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 Feeder Required: No Accompanied by: Self Is patient in pain?: No Allergies soap Allergy (Intermediate, Verified 12/09/24 11:05) Hives Medications ???Medication ???Instructions ???Recorded ???Confirmed ???Type lisinopril 20 mg tablet 20 mg PO DAILY #90 tabs 11/22/23 0 12/09/24 Rx biotin 10,000 mcg chewable tablet 10,000 mcg PO DAILY 04/1011/20 History (Hair, Skin and Nails (biotin)) cholecalciferol (vitamin D3) 125 125 mcg PO DAILY PRN 11/29/2311/20 History mcg (5,000 unit) tablet fexofenadine 180 mg tablet 180 mg PO 3XW 11/29/23 12/09/24 Hi story mecobalamin (vitamin B12) 500 mcg 500 mcg PO DAILY PRN 11/29/23 History chewable tablet estradiol 0.01% (0.1 mg/gram) See Rx Instructions vaginal 12/09/24 Rx vaginal cream .COMPLEX #42.5 grams krill oil 500 mg capsule 500 mg PO QDAY 10/16/24 12/09/24 H istory lactobacillus combination no.9 4 4,000 mmu cells PO QDAY 10/16/24 0 12/09/24 History billion cell capsule (Adult 50 Plus Probiotic) niacinamide 500 mg capsule 500 mg PO QDAY 10/16/24 12/09/24 H istory PFSH Medical History Adult wellness visit Family history of malignant neoplasm of colon in relative diagnosed when younger than 50 years of age Hives Osteoarthritis High cholesterol Hypertension Hearing problem Diabetes Breast cyst Bone fracture Anemia Surgical History Hx of colonoscopy Breast cancer Family History Unknown Blood clot in vein pt does not have L-V gene Colon cancer Cousin at 43yrs Mother Dementia Father Colon cancer At 49yrs Aunt Colon cancer Uncle Colon cancer Other Alcoholism Anxiety CVA (cerebral vascular accident) Diabetes High cholesterol Hypertension Osteoporosis Social History household members: spouse current occupational status: retired current occupation: Retired Smoking Status: Never smoker alcohol intake: current details: IPA's 1 can 4xweek substance use type: other details: CBD tea /legal what type of physical activity do you participate in: other details: crossfit style running frequency: 3-4 times per week seatbelt use: always do you feel safe at home: Yes 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 Patient has a history of mildly elevated blood pressures on lisinopril 20 mg daily. She takes vitamin B12, niacinamide, a probiotic, Krill oil, estradiol, vitamin D and biotin. In addition she has been now taking testosterone bioidentical through a provider in the area. Generally speaking has been feeling pretty well. She does have suspected carpal tunnel on the left side. She did try wrist splint but at times when she does use it, sometimes it seems to make it feel somewhat worse. Other times she is taken it off partly through the night for various reasons. She does note increasing difficulty with grasping things, sometimes dropping things when she is carrying them in the left hand. She also has bunions on the great toes, first MTP joint. She remotely had surgery back in her 20s on both sides. The right side seems to be more uncomfortable but left side appears worse. She has not followed up with podiatry over the years. She wonders about some of the devices that she is read about and whether or not that I think that they may be helpful. We discussed this at some length. I would recommend at this point she revisit with podiatry. On the left side there is clearly what appears to be some cartilaginous material from the joint that might need excised and might actually take care of the problem on the left. On the right, more of recurrent bunion. She did not have fusion either side. She is agreeable to see podiatry and would let us know wh (more content not included)... Normal [facility] XR HIP RIGHT 2-3 VIEWSon XR HIP RIGHT 2-3 VIEWS EXAM: XR HIP RIGH T 3 VIEWS, 11/07/2024 12:58 PM COMPARISON: No prior studies available for comparison. CLINICAL INDICATIONS: right hip pain RELEVANT CLINICAL HISTORY: M25.551:Right hip pain Standing AP pelvis/standing AP left hip/true lateral left hip-all views with [address] close to affected hip at the level of the bone w/o obscuring bone detail.; FINDINGS: 3 images obtained. Soft Tissue: There is no obvious soft tissue swelling. Surgical clips are evident in the abdomen. Bone: Degenerative changes noted in the lower lumbar spine and the sacroiliac joints. Hip: The right hip joint appears anatomically aligned with diffuse joint space narrowing. There is diminished cutback of the right femoral head and neck junction. Limited evaluation the left hip joint demonstrates similar findings. 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 OLOGY EXAM: XR HIP RIGHT 3 VIEWS, 11/07/2024 12:58 PM COMPARISON: No prior studies available for comparison. CLINICAL INDICATIONS: right hip pain RELEVANT CLINICAL HISTORY: M25.551:Right hip pain Standing AP pelvis/standing AP left hip/true lateral left hip-all views with [address] close to affected hip at the level of the bone w/o obscuring bone detail.; FINDINGS: 3 images obtained. Soft Tissue: There is no obvious soft tissue swelling. Surgical clips are evident in the abdomen. Bone: Degenerative changes noted in the lower lumbar spine and the sacroiliac joints. Hip: The right hip joint appears anatomically aligned with diffuse joint space narrowing. There is diminished cutback of the right femoral head and neck junction. Limited evaluation the left hip joint demonstrates similar findings. RADIOLOGY Gilbert Benson MD - 11/07/2024 EXAM: XR HIP RIGHT 3 VIEWS, 11/07/2024 12:58 PM COMPARISON: No prior studies available for comparison. CLINICAL INDICATIONS: right hip pain RELEVANT CLINICAL HISTORY: M25.551:Right hip pain Standing AP pelvis/standing AP left hip/true lateral left hip-all views with 30 [address]. Please place close to affected hip at the level of the bone w/o obscuring bone detail.; FINDINGS: 3 images obtained. Soft Tissue: There is no obvious soft tissue swelling. Surgical clips are evident in the abdomen. Bone: Degenerative changes noted in the lower lumbar spine and the sacroiliac joints. Hip: The right hip joint appears anatomically aligned with diffuse joint space narrowing. There is diminished cutback of the right femoral head and neck junction. Limited evaluation the left hip joint demonstrates similar findings. 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 [facility] Radiology Study observation (narrative) [facility] XR Hip - right 2 ViewsOrdere d By: Gilbert Benson on 11-07-2024 [facility] Work Phone: Block Greaser Office Visit Reporton 05-27-2024 Block Greaser Office Visit Report [facility]'[address], [address] [place] [address] OFFICE VISIT Date of Service: 05/27/24 MR#: [id number] Acct: [id number] Name: EDITH LINTON Rep #: [id number] : 1965 Provider: NICOLETTE diallo Age/Sex: 58/F [place] [facility] [place]: Signed Intake Vital Signs 04/24/24 10:30 05/27/24 10:26 05/27/24 10:30 Height 5 ft 2 in 5 ft 2 in 5 ft 2 in Weight: 123 lb 2 oz BMI 22.5 BP 122/82 H Intake Visit Reasons: MED CHECK 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 Is patient in pain?: No Allergies soap Allergy (Intermediate, Verified 05/27/24 10:25) Hives Medications ???Medication ???Instructions ???Recorded ???Confirmed ???Type lisinopril 20 mg tablet 20 mg PO DAILY #90 tabs 11/22/23 05/27/24 Rx biotin 10,000 mcg chewable tablet 10,000 mcg PO DAILY 11/29/23 05/27/24 History (Hair, Skin and Nails (biotin)) cholecalciferol (vitamin D3) 125 125 mcg PO DAILY PRN 11/29/23 05/27/24 History mcg (5,000 unit) tablet fexofenadine 180 mg tablet 180 mg PO 3XW 11/29/23 05/27/24 History mecobalamin (vitamin B12) 500 mcg 500 mcg PO DAILY PRN 11/29/23 05/27/24 History chewable tablet estradiol 0.01% (0.1 mg/gram) See Rx Instructions vaginal 04/24/24 05/27/24 Rx vaginal cream .COMPLEX #42.5 grams Is last menstrual period known: No Post menopausal: Yes Patient : No : No PFSH Medical History Hives Osteoarthritis High cholesterol Hypertension Hearing problem Diabetes Breast cyst Bone fracture Anemia Surgical History Breast cancer Family History Unknown Blood clot in vein pt does not have L-V gene Mother Dementia Other Alcoholism Anxiety CVA (cerebral vascular accident) Cancer Colon cancer Diabetes High cholesterol Hypertension Osteoporosis Social History household members: spouse current occupational status: retired current occupation: Retired Smoking Status: Never smoker alcohol intake: current details: IPA's 1 can 4xweek substance use type: other details: CBD tea /legal what type of physical activity do you participate in: other details: crossfit style running frequency: 3-4 times per week seatbelt use: always do you feel safe at home: Yes 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 States has noticed less dryness, less pain with intercourse. History 2 Elective abortions Hx Para 2 Spontaneous abortions Hx # Term Pregnancies Ectopic pregnancies Hx # Pregnancies Multiple births # of living children 2 Past Pregnancies Del. Date Name GA/Weeks Outcome Route Bth Weight Infant Gen Labor Lgth Anesthesia Del Locatn Provider FOB Unknown Key Unknown Israel ROS Const Constitutional: Reports system reviewed and no additional complaints, except as documented Eyes Eyes: Reports system reviewed and no additional complaints, except as documented GI GI: Denies abdominal pain or change in bowel habits : Reports as per HPI Exam Const General: cooperative, no acute distress and well groomed Nutritional Appearance: well nourished Orientation: oriented x3 External Female Exam: normal external appearance and normal appearance of the urethra Urethra: normal appearance of the urethra Speculum Exam - Vagina: vagina atrophic (pale pink, improved. Good estrogen effect) Speculum Exam - Cervix: normal appearance of the cervix Coding Level of Care Code Off vis,est,level 3 Diagnoses Atrophic vaginitis N95.2 Malignant neoplasm of right breast in female, estrogen receptor positive, unspecified site of breast C50.911; Z17.0 Breast location: unspecified site of breast Estrogen receptor status: positive Patient sex: female Laterality: right Assessment and Plan Assessment and Plan (1) Atrophic vaginitis: Status: Acute Comment: small topical estrogen cream per patient request/reviewed risks twice a wk (2) Breast cancer: Status: Acute Qualifiers: Breast location: unspecified site of breast Estrogen receptor status: positive Patient sex: female Laterality: right Qualified Code(s): C50.911 - Malignant neoplasm of unspecified site of right female breast; Z17.0 - Estrogen receptor positive status [ER+] Comment: 2016 no chemo or radiation. + estrogen and progesterone mastectomy right side with reconstruction in 2018 Plan She is aware of risks vs benefits of vaginal e (more content not included)... 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 Is patient in pain?: No Allergies soap Allergy (Intermediate, Verified 04/24/24 10:38) Hives Medications ???Medication ???Instructions ???Recorded ???Confirmed ???Type lisinopril 20 mg tablet 20 mg PO DAILY #90 tabs 11/22/23 04/24/24 Rx biotin 10,000 mcg chewable tablet 10,000 mcg PO DAILY 11/29/23 04/24/24 History (Hair, Skin and Nails (biotin)) cholecalciferol (vitamin D3) 125 125 mcg PO DAILY PRN 11/29/23 04/24/24 History mcg (5,000 unit) tablet fexofenadine 180 mg tablet 180 mg PO 3XW 11/29/23 04/24/24 History mecobalamin (vitamin B12) 500 mcg 500 mcg PO DAILY PRN 11/29/23 04/24/24 History chewable tablet estradiol 0.01% (0.1 mg/gram) See Rx Instructions vaginal 04/24/24 04/24/24 Rx vaginal cream .COMPLEX #42.5 grams Is last menstrual period known: No Post menopausal: Yes Patient : No : No PFSH Medical History Hives Osteoarthritis High cholesterol Hypertension Hearing problem Diabetes Breast cyst Bone fracture Anemia Surgical History Breast cancer Family History Unknown Blood clot in vein pt does not have L-V gene Mother Dementia Other Alcoholism Anxiety CVA (cerebral vascular accident) Cancer Colon cancer Diabetes High cholesterol Hypertension Osteoporosis Social History (Updated 04/24/24 @ 10:32 by Elaine Muniz) household members: spouse current occupational status: retired current occupation: Retired Smoking Status: Never smoker alcohol intake: current details: IPA's 1 can 4xweek substance use type: other details: CBD tea /legal what type of physical activity do you participate in: other details: crossfit style running frequency: 3-4 times per week seatbelt use: always do you feel safe at home: Yes 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 Wants to discuss vaginal dryness, no longer sexually active due to that. History of right breast cancer 2016, mastectomy only, reconstruction. DCIS. estrogen/progesteron e positive. Negative genetics. She is on testosterone pellets per [facility] in [place] to help build muscle mass. Last PAP: 2021 History of abnormal PAP: no Last mammogram: 03/2024 History of abnormal mammogram: right breast [facility] Colon cancer screening: due in 2024 Other preventative health care screenings: Bulmaro Female Reproductive History Questions: metorrhagia: No, sexually active: No, dyspareunia: Yes and PCB: No ROS Const Constitutional: Denies fatigue, weight gain or weight loss Cardio Card: Denies chest pain Resp Resp: Denies cough or dyspnea on exertion GI GI: Denies abdominal pain, bloating, change in stool character, constipation or vomiting : Reports as per HPI; Denies difficulty voiding, pelvic pain, urinary frequency, urinary incontinence, urinary urgency, vaginal discharge or vaginal pruritus Exam Const General: cooperative, healthy appearing, no acute distress and well developed Orientation: alert, oriented to person and oriented to place HENMI Head: normal to inspection Neck Neck: normal visual inspection Thyroid: thyroid normal Lymphatic: no lymphadenopathy noted Chest Breast inspection: normal inspection of the breasts (surgical changes from reconstruction of right breast) and normal inspection of the axillae Breast palpation: normal palpation of the breasts, normal palpation of the axillae and no axillary lymphadenopathy Resp Effort Inspection: normal respiratory effort GI Palpation: soft, no masses and nontender Rectal Exam: deferred External Fema (more content not included)... Normal [facility] SCREEN MAMM (CAD) W/ANGELIC UNI Nir 03-26-2024 SCREEN MAMM (CAD) W/ANGELIC UNI L [facility] [address] [place] [address] SCREEN MAMM (CAD) W/ANGELIC UNI L MR#: [id number] Acct: [id number] Name: EDITH LINTON Rep #: [id number] : 1965 F 58 From: Joseluis rojas MD PCP: Dr. Terri Chamberlain MD Status: [facility] Study: SCREEN MAMM (CAD) W/ANGELIC UNI L Date of Exam: 0 03/26/24 Exam# [id number] Ordering Dr: Terri Chamberlain MD [id number] MAMMOGRAPHY - UNILATERAL SCREENING: LEFT BREAST REASON FOR EXAM: Female, 58 years old. Routine annual screening examination (unilateral). PERTINENT HISTORY: Personal history of breast cancer. Prior right mastectomy with chemotherapy and radiation therapy. TECHNIQUE: Digital unilateral breast angelic (3D mammographic acquisition) in the CC and MLO projections. 2-D mediolateral oblique (MLO) and craniocaudad (CC) views of both breasts were obtained. CAD: Full Field Digital Mammography with Computer Added Detection was performed. COMPARISON: Comparison is made with prior study dated March 24, 2023 and May 04, 2016. FINDINGS: Breast Composition: The breasts are heterogeneously dense, which may obscure small masses. There are no dominant masses or suspicious calcifications. Stable left axillary lymph nodes. No other significant abnormalities are identified. There has been no significant change since the prior study. BI/SCREEN MAMM (CAD) W/ANGELIC UNI L IMPRESSION: Stable unilateral screening mammogram. Yearly follow-up mammogram recommended. (A) ASSESSMENT CATEGORY: BIRADS Category 2: Benign. A letter regarding these results will be sent to the patient by the facility within 30 days. Approximately 10% of breast cancers are not detected by mammography. A normal mammogram should not delay biopsy of a clinically suspicious abnormality. [id number] Electronically Signed: Joseluis Kraft MD at 8:12 EDT , CC: Dr. Terri Chamberlain MD Wireless Watcher: Signed Normal [facility] Absolute lymphocyte countOrd ered By: Terri Chamberlain on 12-08-2023 Lymphocytes Auto (Unsp spec) [#/Vol] 1.93 10*3/uL 0.83-4.51 [facility] Automated lymphocyte count a s percentage of total leukocytesOrdered By: Terri Spencechner on 12-08-2023 Lymphocytes/100 WBC Auto (Unsp spec) 31.4 % 19-41 [facility] Basophil percentageOrdered B y: Terri Bulmaro on 12-08-2023 Basophils/100 WBC (Bld) 1.3 % 0-[address] [facility] Bilirubin [Mass/Vol] 0.70 mg/dL 0.20-1.00 [facility] Comment on above: For patients on eltr ombopag therapy, use of Dimension [place] TBIL is not recommended. Chloride [Moles/Vol] 100 mmol/L 98-107 [facility] Cholesterol [Mass/Vol] 264 mg/dL <200 [facility] Comment on above: <200 mg/dL Desirable 200-240 mg/dL Borderline >240 mg/dL High Risk Eosinophils/100 WBC (Bld) 0.8 % 0-5 [facility] Glucose [Mass/Vol] 86 mg/dL 74-106 [facility] Hemoglobin (Bld) [Mass/Vol] 14.4 g/dL 12.0-15.0 [facility] Monocytes/100 WBC (Bld) 8.9 % 0-[address] [facility] Neutrophils (Bld) [#/Vol] 3.5 10*3/uL 2.0-7.7 [facility] Neutrophils/100 WBC (Bld) 57.3 % 47-70 [facility] Potassium [Moles/Vol] 4.0 mmol/L 3.5-5.1 [facility] Protein [Mass/Vol] 7.8 g/dL 6.4-8.2 [facility] Sodium [Moles/Vol] 135 mmol/L 136-145 [facility] Triglyceride [Mass/Vol] 102 mg/dL <[address] [facility] Comment on above: The drugs N-Acetylcy steine and Metamizole may falsely depress this assay.Serum Triglycerides Reference Interval Normal <150 mg/dL Borderline high 150 - 199 mg/dL High 200 - 499 mg/dL Very High > or = 500 mg/dL WBC (Bld) [#/Vol] 6.2 10*3/uL 4.4-11.0 [facility] CNOVon 12-08-2023 CNOV Office Visit (UCWSTR) EDITH LINTON ([id number]) 1965 F Date Time Provider Department 12/08/23 4:15 PM CHRISTINA BISWAS [facility] During your visit today, we recorded the following information about you: Temperature Pulse Respiration Blood pressure 97.7 degrees 59/minute 18/minute 134/91 Weight 57 kg Christina Biswas APRN.CNP 12/08/2023 4:23 PM Signed ASSESSMENT/PLAN: 1. Tick bite of abdominal wall, initial encounter - ICD9: 911.4, E906.4, ICD10: S30.861A, W57.XXXA - DOXYCYCLINE HYCLATE 100 MG CAPSULE - Follow-up with your PCP in 3-5 days if symptoms have not improved or sooner if symptoms worsen - Discussed red flags and need for immediate medical evaluation if any occur. - Discussed supportive care treatment with fluids, rest and analgesia. - Discussed expected course of illness Christina Biswas APRN.CNP Avoiding Tick Bites How can I avoid tick bites? If you are planning an outdoor activity, especially those in a heavily wooded area, it is important to follow a few simple precautions to protect yourself from tick bites. Wear long sleeved, light-colored clothing, with tightly woven fabric. This gives ticks less area to target and allows you to see ticks on your clothing. When traveling through the [place] or [place], stay near the center of the trails. At home, make sure that you keep your lawn mowed and bushes and trees trimmed as short as possible. If you choose to apply tick repellents, such as those containing DEET, try to avoid spraying them directly to your bare skin. (high concentrations of DEET may have harmful effects on the nervous system.) Apply the spray to your clothing, socks, shoes, tents and backpacks. When returning from the outdoors, check for ticks. Be especially observant of hair, body folds, ears, underarms and the back. Check your clothes and gear for ticks and wash these items immediately. What if I have been bitten by a tick? If you discover a tick, remove it immediately. The longer the tick feeds, the greater chance that it can transmit its bacteria to you. The easiest removal method is to use a pair of tweezers, grasp the tick as close to your skin as possible, and gently pull the tick off. Then, thoroughly wash your hands and the bite area with rubbing alcohol to prevent transmission to other areas of your body. When should I call the doctor? It is best to wait and see whether you develop any signs or symptoms. If a large red vinicius forms around the tick bite or if you develop fever, flu-like symptoms, rash, or more severe illness, contact your doctor right away. Your doctor can determine whether these symptoms might be caused by a tick-borne disease, and whether antibiotics will be needed. Is there a vaccine for preventing tick-borne disease in humans? Currently there are vaccines being tested, but there are no guarantees that they will be effective. The best option is to take precautions so that tick bites do not occur in the first place. Early Signs and Symptoms (3 to 30 days after tick bite) Fever, chills, headache, fatigue, muscle and joint aches, and swollen lymph nodes Erythema migrans (EM) rash: Occurs in approximately 70 to 80 percent of infected persons Begins at the site of a tick bite after a delay of 3 to 30 days (average is about 7 days) Expands gradually over a period of days reaching up to 12 inches or more (30 cm) across May feel warm to the touch but is rarely itchy or painful Sometimes clears as it enlarges, resulting in a target or ?bull's-eye? appearance May appear on any area of the body Later Signs and Symptoms (days to months after tick bite) Severe headaches and neck stiffness Additional EM rashes on other areas of the body Arthritis with severe joint pain and swelling, particularly the knees and other large joints. Facial or Ribera's palsy (loss of muscle tone or droop on one or both sides of the face) Intermittent pain in tendons, muscles, joints, and bones Heart palpitations or an irregular heart beat (Lyme carditis) Episodes of dizziness or shortness of breath Inflammation of the brain and spinal cord Nerve pain Shooting pains, numbness, or tingling in the hands or feet Problems with short-term memory Christina Biswas APRN.PULP ROLLER 12/08/2023 4:27 PM Signed Subjective HPI Edith Linton is a 58 year old female who presents with concern for tick bites. She was weeding raspberries yesterday and pulled a tick out of her hair today, and then found one crawling on her later. Today while taking a shower she noticed a bite on her right abdominal wall and one on her left buttock. She denies pain or rash at the sites. She did not see a tick at these sites but given the fact she had 2 crawling on her recently is cause for concern. Review of Systems Constitutional: Negative for chills a (more content not included)... Normal [facility] Determination of erythrocyte mean corpuscular volume (MCV)Ordered By: Terri Chamberlain on 12-08-2023 MCV (RBC) [Entitic vol] 93.0 fL 81-[address] [facility] Erythrocyte distribution wid th ratioOrdered By: Terri Chamberlain on 12-08-2023 Erythrocyte distribution width (RBC) [Ratio] 11.9 % 11.6-14.6 [facility] Erythrocyte distribution wid th standard deviationOrdered By: Terri Chamberlain on 12-08-2023 Erythrocyte distribution width (RBC) [Entitic vol] 40.9 fL 35.1-43.9 [facility] Hematocrit Auto (Bld) [Volum e fraction]Ordered By: Terri Chamberlain on 12-08-2023 Hematocrit (Bld) [Volume fraction] 42.7 % 37-47 [facility] Immature granulocytes/100 WB C Auto (Bld)Ordered By: Terri Chamberlain on 12-08-2023 Immature granulocytes/100 WBC (Bld) 0.300 % 0.0-0.9 [facility] Comment on above: IG% - Immature Granu locytes (promyelocytes, myelocytes and metamyelocytes) > 1% indicates that a LEFT SHIFT is Present. Laboratory - Chemistry and C hemistry - challengeOrdered By: Terri Chamberlain on 12-08-2023 Albumin/Globulin [Mass ratio] 1.1 {ratio} 0.9-2.4 [facility] ALP [Catalytic activity/Vol] 82 U/L 45-117 [facility] ALT [Catalytic activity/Vol] 33 U/L 13-56 [facility] Cholesterol in HDL [Mass/Vol] 70 mg/dL >40 [facility] Comment on above: The drugs N-Acetylcy steine and Metamizole may falsely depress this assay. Reference Range HDL <40 mg/dL Low HDL Cholesterol HDL >or= 60 mg/dL High HDL Cholesterol Cholesterol in LDL [Mass/Vol] 174 mg/dL 0-130 [facility] CO2 [Moles/Vol] 28.0 mmol/L 21.0-32.0 [facility] Globulin (S) [Mass/Vol] 3.7 g/dL 2.2-4.2 [facility] Magnesium [Mass/Vol] 2.2 mg/dL 1.6-2.6 [facility] Urea nitrogen/Creatinine [Mass ratio] 11.7 mg/mg 10-20 [facility] Laboratory - Hematology and Cell countsOrdered By: Terri Chamberlain on 12-08-2023 MCH (RBC) [Entitic mass] 31.4 pg 27.0-32.0 [facility] MCHC (RBC) [Mass/Vol] 33.7 g/dL 32-36 [facility] Nucleated RBC/100 WBC (Bld) [Ratio] 0 % 0-5 [facility] Platelet mean volume (Bld) [Entitic vol] 9.8 fL 6.2-12.0 [facility] Platelets (Bld) [#/Vol] 280 10*3/uL 150-450 [facility] No Panel InformationOrdered By: Terri Chamberlain on 12-08-2023 Estimated GFR (MDRD) Amer 88 mL/min >60 [facility] Comment on above: GFR Calc Estimated GFR (MDRD) Non-Af Amer 73 mL/min >60 [facility] Comment on above: Non- GFR Calc Free Triiodothyronine (T3) pg/dL 2.9 pg/mL 2.18-3.98 [facility] Vitamin B12 Level > 2000 pg/mL 211-911 [facility] Vitamin D 25-Hydroxy 32.9 ng/mL [facility] Comment on above: Vitamin D 25(OH) Sta tus Range Deficiency <20 ng/mL (50nmol/L) Insufficiency 20 - 30 ng/mL (50 - 75 nmol/L) Sufficiency 30 - 100 ng/mL (75 - 250 nmol/L) Toxicity >100 ng/mL (>250 nmol/L) VLDL Cholesterol 20 mg/dL 5-40 [facility] RBC Auto (Bld) [#/Vol]Ordere d By: Terri Chamberlain on 12-08-2023 RBC (Bld) [#/Vol] 4.59 10*6/uL 4.2-5.4 [facility] Serum or plasma calcium jackie urement (mass/volume)Ordered By: Terri Chamberlain on 12-08-2023 Calcium [Mass/Vol] 9.4 mg/dL 8.5-10.1 [facility] Serum or plasma creatinine m easurement (mass/volume)Ordered By: Terri Chamberlain on 12-08-2023 Creatinine [Mass/Vol] 0.85 mg/dL 0.55-1.02 [facility] Comment on above: The validity of the calculated GFR & GFRAA in patients over 70 years has not been determined. Clinical correlation is essential. Serum or plasma thyroid stim ulating hormone (TSH) measurement (units/volume)Ordered By: Terri Chamberlain on 12-08-2023 TSH Qn 1.81 uIU/mL 0.358-3.74 [facility] Serum or plasma urea nitroge n measurement (mass/volume)Ordered By: Terri Chamberlain on 12-08-2023 Urea nitrogen [Mass/Vol] 10 mg/dL 7-18 [facility] Thin prep Papanicolaou smear with manual screeningOrdered By: Terri Chamberlain on 12-08-2023 Thin prep Papanicolaou smear with manual screening 4.1 g/dL 3.2-5.0 [facility] Thin prep Papanicolaou smear with manual screening 32 U/L 15-37 [facility] Thin prep Papanicolaou smear with manual screening 7 5-15 [facility] Thin prep Papanicolaou smear with manual screening 1.02 ng/dL 0.76-1.46 [facility] CNOVon 04-10-2023 CNOV Office Visit (UCWSTR) EDITH LINTON ([id number]) 1965 F Date Time Provider Department 04/10/23 3:45 PM CHRISTINA BISWAS [facility] During your visit today, we recorded the following information about you: Temperature Pulse Respiration Blood pressure 97.3 degrees 58/minute 18/minute 149/99 Weight 57.3 kg Christina Biswas APRN.CNP 04/10/2023 4:20 PM Signed ASSESSMENT/PLAN: 1. Insect bite of thoracic wall, unspecified whether front or back, initial encounter - ICD9: 911.4, E906.4, ICD10: S20.96XA, W57.XXXA (primary diagnosis) - unknown type of insect 2. Local skin infection - ICD9: 686.9, ICD10: L08.9 - Begin treatment with doxycycline - Follow-up with your PCP in 3-5 days if symptoms have not improved or sooner if symptoms worsen - Discussed red flags and need for immediate medical evaluation if any occur. - Discussed supportive care treatment with fluids, rest and analgesia. - Discussed expected course of illness MANUEL Dickinson Kathy, APRN.CNP 04/10/2023 4:23 PM Signed Subjective HPI Edithvicky Linton is a 57 year old female who presents with an insect bite on her right chest wall. This happened 5 days ago- unknown type of insect. It has been red, slightly swollen and itchy since. She was using some ointment on it as well as ice packs. It has not resolved so she wanted it checked. Review of Systems Constitutional: Negative for chills and fever. Respiratory: Negative. Cardiovascular: Negative. Musculoskeletal: Negative for myalgias. Skin: Positive for itching. Negative for rash. BP 149/99 Pulse (!) 58 Temp 36.3 ?C (97.3 ?F) Resp 18 Wt 57.3 kg (126 lb 6.4 oz) SpO2 99% BMI 22.39 kg/m? PAST MEDICAL HISTORY Diagnosis Date Anemia Blood dyscrasia Family history of malignant neoplasm of gastrointestinal tract Gestational diabetes Internal hemorrhoids without mention of complication Unspecified essential hypertension PAST SURGICAL HISTORY Procedure Laterality Date COLONOSCOPY FLX DX W/COLLJ SPEC WHEN PFRMD 1999 Colonoscopy COLONOSCOPY FLX DX W/COLLJ SPEC WHEN PFRMD 11/30/04 Colonoscopy COLONOSCOPY FLX DX W/COLLJ SPEC WHEN PFRMD 12/02/10 COLONOSCOPY FLX DX W/COLLJ SPEC WHEN PFRMD 05/02/2016 Colonoscopy ALLERGIES Patient has no known allergies. MEDICATIONS FAMILY HISTORY Problem Relation Age of Onset Colon Cancer Father Colon Cancer Paternal Aunt Colon Cancer Paternal Uncle Heart disease Mother Hypertension Mother Hyperlipidemia Mother Heart Failure Mother other (leukemia) Mother other (leukemia) Brother Social History Tobacco Use Smoking status: Never Smokeless tobacco: Never Substance Use Topics Alcohol use: Yes Drug use: No Objective Physical Exam Vitals and nursing note reviewed. Constitutional: Appearance: Normal appearance. Cardiovascular: Rate and Rhythm: Normal rate. Pulmonary: Effort: Pulmonary effort is normal. Chest: Skin: General: Skin is warm and dry. Capillary Refill: Capillary refill takes less than 2 seconds. Findings: Erythema present. No rash. Neurological: Mental Status: She is alert. ASSESSMENT/PLAN: 1. Insect bite of thoracic wall, unspecified whether front or back, initial encounter - ICD9: 911.4, E906.4, ICD10: S20.96XA, W57.XXXA (primary diagnosis) - unknown type of insect 2. Local skin infection - ICD9: 686.9, ICD10: L08.9 - Begin treatment with doxycycline - Follow-up with your PCP in 3-5 days if symptoms have not improved or sooner if symptoms worsen - Discussed red flags and need for immediate medical evaluation if any occur. - Discussed supportive care treatment with fluids, rest and analgesia. - Discussed expected course of illness Christina Biswas APRN.PULP ROLLER Referring Provider: SELF [200] Allergies As of Date: 04/10/2023 (No Known Allergies) Date Reviewed: 04/10/2023 Reviewed by: Kaci Torres MA - Fully Assessed Reason for Visit: Insect Bite [929] Cmt: R shoulder x1 week, hornet sting R hand index finger x2 days Primary Visit Diagnosis:Insect bite of thoracic wall, unspecified whether front or back, initial encounter [S20.96XA, W57.XXXA] Other Visit Diagnosis:Local skin infection [L08.9] Order(s):doxycycline monohydrate 100 mg tabletTake 1 tablet by mouth twice daily for 5 days.Disp: 10 tabletRfl: 0 Prescriptions as of 04/10/2023 - fexofenadine HCl (MECCA HIVES ORAL) Take by mouth. At night for hives per dermatology - doxycycline monohydrate 100 mg tablet Take 1 tablet by mouth twice daily for 5 days. - cholecalciferol (VITAMIN D3) 5,000 unit tab Take 1 tablet by mouth once daily. - MEDICATION, NON-DATABASE Mushroom . Broccoli supplement - selenium 200 mcg cap Take by mouth. - no.82/iron/folate no2 (TL FOLATE ORAL) Take by mouth. 400 mcg - MAGNESIUM CITRATE ORAL Take by mouth. - lisinopril ( (more content not included)... Normal [facility] Cervical or vagninal specime n microscopic examination by cytology stain (reported asOrdered By: Octavia Muniz on 03-24-2023 Cytology report Cyto stain Doc (Cvx/Vag) Comment . [facility] Comment on above: The Pap smear is a s creening test designed to aid in thedetection of premalignant and malignant conditions of theuterine cervix. It is not a diagnostic procedure andshould not be used as the sole means of detecting cervicalcancer. Both false-positive and false-negative reports dooccur. Detection in cervical specim en of any of human papilloma virus (HPV) 16, 18, 31, 33,Ordered By: Octavia Muniz on 03-24-2023 HPV 16+18+31+33+35+39+45+51 +52+56+58+59+66+68 DNA Probe+sig amp Ql (Cvx) Negative Negative [facility] Comment on above: This nucleic acid am plification test detects fourteen high-risk HPV types (16,18,31,33,35,39,45,51,52,56,58,59,66,68)without differentiation. Laboratory - CytologyOrdered By: Octavia Muniz on 03-24-2023 Tankroom Tender Cyto stain Nom (Cvx/Vag) [ID] Comment . [facility] Comment on above: John Muniz , Machine Operator Replanter (ASCP) Laboratory - Miscellaneous t estsOrdered By: Octavia Muniz on 03-24-2023 Service comment (Unsp spec) [Interp] Comment . [facility] Comment on above: This liquid based Th inPrep(R) pap test was screened withthe use of an image guided system. Service comment (Unsp spec) [Interp] . . [facility] Liquid-based cerv Pap + CT/G C by GIA w reflex to high-risk HPV for ASCUSOrdered By: Octavia Muniz on 03-24-2023 Cytology report Cyto stain.thin prep Doc (Cvx/Vag) Comment . [facility] Comment on above: Criteria not met, HP V Genotype not performed.Performed at: - [address] [id number] Director: Stephanie hCeema MD, Phone: [phone] at: =[facility] [id number] Director: Stephanie Cheema MD, Phone: [phone] No Panel InformationOrdered By: Octavia Muniz on 03-24-2023 Pathology report final diagnosis Narrative Comment . [facility] Comment on above: NEGATIVE FOR INTRAEP ITHELIAL LESION OR MALIGNANCY. Cervical or vagninal specime n microscopic examination by cytology stain (reported asOrdered By: Octavia Muniz on 03-10-2023 Cytology report Cyto stain Doc (Cvx/Vag) Comment . [facility] Comment on above: The Pap smear is a s creening test designed to aid in thedetection of premalignant and malignant conditions of theuterine cervix. It is not a diagnostic procedure andshould not be used as the sole means of detecting cervicalcancer. Both false-positive and false-negative reports dooccur. Detection in cervical specim en of any of human papilloma virus (HPV) 16, 18, 31, 33,Ordered By: Octavia Muniz on 03-10-2023 HPV 16+18+31+33+35+39+45+51 +52+56+58+59+66+68 DNA Probe+sig amp Ql (Cvx) Negative Negative [facility] Comment on above: This nucleic acid am plification test detects fourteen high-risk HPV types (16,18,31,33,35,39,45,51,52,56,58,59,66,68)without differentiation. Laboratory - CytologyOrdered By: Octavia Muniz on 03-10-2023 Tankroom Tender Cyto stain Nom (Cvx/Vag) [ID] Comment . [facility] Comment on above: Chuck Francis, [facility] otechnologist (ASCP) Recommended follow-up Cyto stain Nom (Cvx/Vag) Comment . [facility] Comment on above: Suggest follow up as clinically appropriate. Laboratory - Miscellaneous t estsOrdered By: Octavia Muniz on 03-10-2023 Service comment (Unsp spec) [Interp] Comment . [facility] Comment on above: This liquid based Th inPrep(R) pap test was screened withthe use of an image guided system. Service comment (Unsp spec) [Interp] . . [facility] Liquid-based cerv Pap + CT/G C by GIA w reflex to high-risk HPV for ASCUSOrdered By: Octavia Muniz on 03-10-2023 Cytology report Cyto stain.thin prep Doc (Cvx/Vag) Comment . [facility] Comment on above: Criteria not met, HP V Genotype not performed.Performed at: - [address] [id number] Director: Stephanie Cheema MD, Phone: [phone] at: =[address] [id number] Director: Stephanie Cheema MD, Phone: [phone] No Panel InformationOrdered By: Octavia Muniz on 03-10-2023 Pap Smear QC Review Comment . [facility] Comment on above: Roya William, Cyto technologist Pap Smear Specimen Adequacy Comment . [facility] Comment on above: Specimen processed a nd examined but unsatisfactory for evaluation ofepithelial abnormality because of insufficient cellularity. Pathology report final diagnosis Narrative Comment . [facility] Comment on above: UNSATISFACTORY FOR E VALUATION. Absolute lymphocyte counton 05-13-2022 Lymphocytes Auto (Unsp spec) [#/Vol] 1.62 10*3/uL 0.83-4.51 [facility] Work Phone: Basophil percentageon 2021 Basophils/100 WBC (Bld) 1.0 % 0-[address] [facility] Work Phone: Bilirubin [Mass/Vol] 0.60 mg/dL 0.20-1.00 [facility] Work Phone: Comment on above: For patients on eltr ombopag therapy, use of Dimension [place] TBIL is not recommended. Chloride [Moles/Vol] 100 mmol/L 98-107 [facility] Work Phone: Cholesterol [Mass/Vol] 226 mg/dL <200 [facility] Work Phone: Comment on above: <200 mg/dL Desirable 200-240 mg/dL Borderline >240 mg/dL High Risk Eosinophils/100 WBC (Bld) 0.5 % 0-5 [facility] Work Phone: Glucose [Mass/Vol] 91 mg/dL 74-106 [facility] Work Phone: Neutrophils (Bld) [#/Vol] 3.7 10*3/uL 2.0-7.7 [facility] Work Phone: Neutrophils/100 WBC (Bld) 62.6 % 47-70 [facility] Work Phone: Potassium [Moles/Vol] 4.0 mmol/L 3.5-5.1 [facility] Work Phone: Protein [Mass/Vol] 7.5 g/dL 6.4-8.2 [facility] Work Phone: Sodium [Moles/Vol] 137 mmol/L 136-145 [facility] Work Phone: Triglyceride [Mass/Vol] 134 mg/dL <[address] [facility] Work Phone: Comment on above: The drugs N-Acetylcy steine and Metamizole may falsely depress this assay.Serum Triglycerides Reference Interval Normal <150 mg/dL Borderline high 150 - 199 mg/dL High 200 - 499 mg/dL Very High > or = 500 mg/dL WBC (Bld) [#/Vol] 5.9 10*3/uL 4.4-11.0 [facility] Work Phone: Blood erythrocytes count (nu mber/volume)on 05-13-2022 RBC (Bld) [#/Vol] 4.59 10*6/uL 4.2-5.4 [facility] Work Phone: Blood hemoglobin measurement (mass/volume)on 05-13-2022 Hemoglobin (Bld) [Mass/Vol] 14.8 g/dL 12.0-15.0 [facility] Work Phone: Blood lymphocytes/100 leukoc yteson 05-13-2022 Lymphocytes/100 WBC (Bld) 27.3 % 19-41 [facility] Work Phone: Blood monocytes/100 leukocyt eson 05-13-2022 Monocytes/100 WBC (Bld) 8.4 % 0-[address] [facility] Work Phone: Blood platelet mean volumeon 05-13-2022 Platelet mean volume (Bld) [Entitic vol] 10.6 fL 6.2-12.0 [facility] Work Phone: Determination of erythrocyte mean corpuscular volume (MCV)on 05-13-2022 MCV (RBC) [Entitic vol] 95.0 fL 81-[address] [facility] Work Phone: Hematocrit Auto (Bld) [Volum e fraction]on 05-13-2022 Hematocrit (Bld) [Volume fraction] 43.6 % 37-47 [facility] Work Phone: Laboratory - Chemistry and C hemistry - challengeon 05-13-2022 ALP [Catalytic activity/Vol] 82 U/L 45-117 [facility] Work Phone: [phone] ALT [Catalytic activity/Vol] 28 U/L 13-56 [facility] Work Phone: [phone] CO2 [Moles/Vol] 28.0 mmol/L 21.0-32.0 [facility] Work Phone: [phone] Globulin (S) [Mass/Vol] 3.7 g/dL 2.2-4.[address] [facility] Work Phone: [phone] Urea nitrogen/Creatinine [Mass ratio] 9.2 mg/mg 10-20 [facility] Work Phone: Laboratory - Hematology and Cell countson 05-13-2022 Erythrocyte distribution width (RBC) [Entitic vol] 41.0 fL 35.1-43.9 [facility] Work Phone: Erythrocyte distribution width (RBC) [Ratio] 11.9 % 11.6-14.6 [facility] Work Phone: [phone] Immature granulocytes/100 WBC (Bld) 0.200 % 0.0-0.9 [facility] Work Phone: Comment on above: IG% - Immature Granu locytes (promyelocytes, myelocytes and metamyelocytes) > 1% indicates that a LEFT SHIFT is Present. MCH (RBC) [Entitic mass] 32.2 pg 27.0-32.0 [facility] Work Phone: Nucleated RBC/100 WBC (Bld) [Ratio] 0 % 0-5 [facility] Work Phone: MCHC Auto (RBC) [Mass/Vol]on 05-13-2022 MCHC (RBC) [Mass/Vol] 33.9 g/dL 32-36 [facility] Work [facility]: No Panel Informationon 05-13 Estimated GFR (MDRD) Amer 100 mL/min >60 [facility] Work Phone: Comment on above: GFR Calc Estimated GFR (MDRD) Non-Af Amer 83 mL/min >60 [facility] Work Phone: Comment on above: Non- GFR Calc Thyroid Stimulating Hormone (TSH) 1.50 uIU/mL 0.358-3.74 [facility] Work Phone: Platelets bldon 05-13-2022 Platelets (Bld) [#/Vol] 244 10*3/uL 150-450 [facility] Work Phone: Serum or plasma albumin jackie urement (mass/volume)on 05-13-2022 Albumin [Mass/Vol] 3.8 g/dL 3.2-5.0 [facility] Work Phone: Serum or plasma albumin/glob ulin mass ratioon 05-13-2022 Albumin/Globulin [Mass ratio] 1.0 {ratio} 0.9-2.4 [facility] Work Phone: Serum or plasma calcium jackie urement (mass/volume)on 05-13-2022 Calcium [Mass/Vol] 9.4 mg/dL 8.5-10.1 [facility] Work Phone: Serum or plasma cholesterol in HDL measurement (mass/volume)on 05-13-2022 Cholesterol in HDL [Mass/Vol] 67 mg/dL >40 [facility] Work Phone: Comment on above: The drugs N-Acetylcy steine and Metamizole may falsely depress this assay. Reference Range HDL <40 mg/dL Low HDL Cholesterol HDL >or= 60 mg/dL High HDL Cholesterol Serum or plasma cholesterol in VLDL measurement (mass/volume)on 05-13-2022 Cholesterol in VLDL [Mass/Vol] 27 mg/dL 5-40 [facility] Work Phone: Serum or plasma creatinine m easurement (mass/volume)on 05-13-2022 Creatinine [Mass/Vol] 0.76 mg/dL 0.55-1.02 [facility] Work Phone: Comment on above: The validity of the calculated GFR & GFRAA in patients over 70 years has not been determined. Clinical correlation is essential. Serum or plasma low density lipoprotein (LDL) cholesterol measurement (mass/volume)on 05-13-2022 Cholesterol in LDL [Mass/Vol] 132 mg/dL 0-130 [facility] Work Phone: Serum or plasma urea nitroge n measurement (mass/volume)on 05-13-2022 Urea nitrogen [Mass/Vol] 7 mg/dL 7-18 [facility] Work Phone: Thin prep Papanicolaou smear with manual screeningon 05-13-2022 Thin prep Papanicolaou smear with manual screening 30 U/L 15-37 [facility] Work Phone: Thin prep Papanicolaou smear with manual screening 9 5-15 [facility] Work Phone: Thin prep Papanicolaou smear with manual screening < 5.0 mg/L NO RANGE EST. [facility] Work Phone: Whole blood hemoglobin A1c/t otal hemoglobin ratio (mass fraction)on 05-13-2022 HbA1c (Bld) [Mass fraction] 5.3 % 3.8-5.6 [facility] Work Phone: Comment on above: Normal < 5.7 % Predi abetic 5.7 - 6.4 % Diabetic >or= 6.5 % Please note range changes. XR TOE AP/LAT/OBL LEFTon [facility] XR Toes - left 3 Viewson IMPRESSION: Soft tissue swelling of the fourth digit. No acute fracture seen. Wireless Watcher: TOMAS Transcribe Date/Time: Feb 16 2022 9:05A Dictated by : ATTILA BENSON MD This examination was interpreted and the report reviewed and electronically signed by: ATTILA BENSON MD on Feb 16 2022 9:07AM EST [email or web address] E_DIVISION OF RADIOLOGY * * *Final Report* * * DATE OF EXAM: Feb 16 2022 8:24AM WOX [id number] - XR TOE 3V AP/LAT/OBL LT / PROCEDURE REASON: Toe injury, left, initial encounter * * * * Physician Interpretation * * * * EXAM TITLE: XR TOE 3V AP/LAT/OBL LT EXAM DATE/TIME: 02/16/2022 8:24 AM COMPARISON: None CLINICAL INDICATION/HISTORY: Injury. TECHNIQUE: AP, lateral and oblique views of the fourth digit of the left foot are presented. FINDINGS: No acute fractures or subluxations are noted. The joint spaces are well preserved. The mineralization of the bones is normal. There is soft tissue swelling. [email or web address] E_DIVISION OF RADIOLOGY Provider, [facility] [place] - 02/16/2022 * * *Final Report* * * DATE OF EXAM: Feb 16 2022 8:24AM WOX [id number] - XR TOE 3V AP/LAT/OBL LT / PROCEDURE REASON: Toe injury, left, initial encounter * * * * Physician Interpretation * * * * EXAM TITLE: XR TOE 3V AP/LAT/OBL LT EXAM DATE/TIME: 02/16/2022 8:24 AM COMPARISON: None CLINICAL INDICATION/HISTORY: Injury. TECHNIQUE: AP, lateral and oblique views of the fourth digit of the left foot are presented. FINDINGS: No acute fractures or subluxations are noted. The joint spaces are well preserved. The mineralization of the bones is normal. There is soft tissue swelling. IMPRESSION IMPRESSION: Soft tissue swelling of the fourth digit. No acute fracture seen. Wireless Watcher: PSCB Transcribe Date/Time: Feb 16 2022 9:05A Dictated by : ATTILA BENSON MD This examination was interpreted and the report reviewed and electronically signed by: ATTILA BENSON MD on Feb 16 2022 9:07AM EST [facility] Radiology Study observation (narrative) Federico adamson [facility] XR Toes - left 3 ViewsOrdere d By: [facility] Provider on 02-16-[address] [facility] CORONAVIRUS PCR - [facility] 05-31-2021 SARS-CoV-2 (COVID-19) RNA GIA+probe Ql (Unsp spec) Positive Critically abnormal NORMAL: NEGATIVE [facility] Comment on above: Result Comment: { CA LLED TO EVELIA,05/31/21,13:25,KLS { READ BACK BY EVELIA Performed By: #### [id number] #### [facility],[address] [place] [address] SEND TO IC? YES Normal [facility] Comment on above: Result Comment: RESU LTS FAXED TO INFECTION CONTROL. SARS-CoV-2 THIS TEST IS BEING USED UNDER THE FDA EUA PROCEDURE. THIS ASSAY HAS BEEN VALIDATED IN THE [facility] FOR USE WITH NASOPHARYNGEAL SPECIMENS IN [facility]. INTERPRETIVE DATA LABORATORY TEST RESULTS SHOULD ALWAYS BE CONSIDERED IN THE CONTEXT OF CLINICAL OBSERVATIONS AND EPIDEMIOLOGICAL DATA IN MAKING FINAL DIAGNOSIS AND PATIENT MANAGEMENT DECISIONS. PATIENT MANAGEMENT SHOULD FOLLOW CURRENT CDC GUIDELINES. A POSITIVE TEST RESULT FOR COVID-19 INDICATES THAT RNA FROM SARS-CoV-2 WAS DETECTED, AND THE PATIENT IS INFECTED WITH THE VIRUS AND PRESUMED TO BE CONTAGIOUS. A NEGATIVE TEST RESULT FOR THIS TEST MEANS THAT SARS-CoV-2 RNA WAS NOT PRESENT IN THE SPECIMEN ABOVE THE LIMIT OF DETECTION. HOWEVER, A NEGATVIE RESULT DOES NOT RULE OUT COVID-19 AND SHOULD NOT BE USED THE SOLE BASIS FOR TREATMENT OR PATIENT MANAGEMENT DECISIONS. A NEGATIVE RESULT DOES NOT EXCLUDE THE POSSIBILITY OF COVID-19. WHEN DIAGNOSTIC TESTING IS NEGATIVE, THE POSSIBLILTY OF A FALSE NEGATIVE RESULT SHOULD [...] BASED ON EXPOSURE HISTORY TOGETHER WITH OTHER CLINICAL FINDINGS, RE-TESTED SHOULD BE CONSIDERED BY HEALTHCARE PROVIDERS IN CONSULTATION WITH PUBLIC HEALTH AUTHORITIES. Performed By: #### [id number] #### [facility],[address] [place], [place] [id number] Vital Signs Date Time Vital Sign Value Performing Clinician Ramseyi marquita 12-19-2024 08:30-0400 Body temperature 97.6 [degF] Dr. Terri Chamberlain MD Work Phone: [facility] 12-19-2024 08:30-0400 Diastolic blood pressure 74 mm[Hg] Dr. Terri Chamberlain MD Work Phone: [facility] 12-19-2024 08:30-0400 Heart rate 57 /min Dr. Terri Chamberlain MD Work Phone: [facility] 12-19-2024 08:30-0400 Respiratory rate 16 /min Dr. Terri Chamberlain MD Work Phone: [facility] 12-19-2024 08:30-0400 SaO2% (BldA) [Mass fraction] 97 % Dr. Terri Chamberlain MD Work Phone: [facility] 12-19-2024 08:30-0400 Systolic blood pressure 107 mm[Hg] Dr. Terri Chamberlain MD Work Phone: [facility] 12-19-2024 06:40-0400 Body height 157.[address] Terri Chamberlain MD Work Phone: [facility] 12-19-2024 06:40-0400 Body mass index (BMI) [Ratio] 22.9 kg/m2 Dr. Terri Chamberlain MD Work Phone: [facility] 12-19-2024 06:40-0400 Body weight [address] Terri Chamberlain MD Work Phone: [facility] 12-09-2024 11:11-0400 Body mass index (BMI) [Ratio] 23.3 kg/m2 Dr. Terri Chamberlain MD Work Phone: [facility] 12-09-2024 11:11-0400 Body temperature 98.4 [degF] Dr. Terri Chamberlain MD Work Phone: [facility] 12-09-2024 11:11-0400 Body weight 57.[address] Terri Chamberlain MD Work Phone: [facility] 12-09-2024 11:11-0400 Diastolic blood pressure 91 mm[Hg] Dr. Terri Chamberlain MD Work Phone: [facility] 12-09-2024 11:11-0400 Heart rate 65 /min Dr. Terri Chamberlain MD Work Phone: [facility] 12-09-2024 11:11-0400 Respiratory rate 16 /min Dr. Terri Chamberlain MD Work Phone: [facility] 12-09-2024 11:11-0400 SaO2% (BldA) [Mass fraction] 96 % Dr. Terri Chamberlain MD Work Phone: [facility] 12-09-2024 11:11-0400 Systolic blood pressure 152 mm[Hg] Dr. Terri Chamberlain MD Work Phone: [facility] 10-16-2024 10:15-0500 Body mass index (BMI) [Ratio] 21.9 kg/m2 Dr. Terri Chamberlain MD Work Phone: [facility] 10-16-2024 10:15-0500 Body weight 54.[address] Terri Chamberlain MD Work Phone: [facility] 12-08-2023 16:12-0400 Body temperature 97.7 [degF] Christina Praisler-Wood METER READER CHIEF.PULP ROLLER Work Phone: [facility] 12-08-2023 16:12-0400 Body weight 57 kg Christina Praisler-Wood METER READER CHIEF.PULP ROLLER Work Phone: [facility] 12-08-2023 16:12-0400 Diastolic blood pressure 91 mm[Hg] Christina Praisler-Wood METER READER CHIEF.PULP ROLLER Work Phone: [facility] 12-08-2023 16:12-0400 Heart rate 59 /min Christina Praisler-Wood METER READER CHIEF.PULP ROLLER Work Phone: [facility] 12-08-2023 16:12-0400 Respiratory rate 18 /min Christina Praisler-Wood METER READER CHIEF.PULP ROLLER Work Phone: [facility] 12-08-2023 16:12-0400 SaO2% (BldA) [Mass fraction] 98 % Christina Biswas APRN.PULP ROLLER Work Phone: [facility] 12-08-2023 16:12-0400 Systolic blood pressure 134 mm[Hg] Christina Biswas APRN.PULP ROLLER Work Phone: [facility] 11-29-2023 10:16-0400 Body height 157.[address] Terri Chamberlain Work Phone: [facility] 11-29-2023 10:16-0400 Body mass index (BMI) [Ratio] 22.8 kg/m2 Dr. Terri Chamberlain Work Phone: [facility] 11-29-2023 10:16-0400 Body temperature 98.2 [degF] Dr. Terri Chamberlain Work Phone: [facility] 11-29-2023 10:16-0400 Body weight 56.[address] Terri Chamberlain Work Phone: [facility] 11-29-2023 10:16-0400 Diastolic blood pressure 94 mm[Hg] Dr. Terri Chamberlain Work Phone: [facility] 11-29-2023 10:16-0400 Heart rate 78 /min Dr. Terri Chamberlain Work Phone: [facility] 11-29-2023 10:16-0400 Respiratory rate 16 /min Dr. Terri Chamberlain Work Phone: [facility] 11-29-2023 10:16-0400 SaO2% (BldA) [Mass fraction] 97 % Dr. Terri Chamberlain Work Phone: [facility] 11-29-2023 10:16-0400 Systolic blood pressure 151 mm[Hg] Dr. Terri Chamberlain Work Phone: [facility] 04-10-2023 15:51-0400 Body temperature 97.3 [degF] Christina Praisler-Wood METER READER CHIEF.PULP ROLLER Work Phone: [facility] 04-10-2023 15:51-0400 Body weight 57.34 kg Christina Praisler-Wood METER READER CHIEF.PULP ROLLER Work Phone: [facility] 04-10-2023 15:51-0400 Diastolic blood pressure 99 mm[Hg] Christina Praisler-Wood METER READER CHIEF.PULP ROLLER Work Phone: [facility] 04-10-2023 15:51-0400 Heart rate 58 /min Christina Praisler-Wood METER READER CHIEF.PULP ROLLER Work Phone: [facility] 04-10-2023 15:51-0400 Respiratory rate 18 /min Christina Praisler-Wood METER READER CHIEF.PULP ROLLER Work Phone: [facility] 04-10-2023 15:51-0400 SaO2% (BldA) [Mass fraction] 99 % Christina Praisler-Wood METER READER CHIEF.PULP ROLLER Work Phone: [facility] 04-10-2023 15:51-0400 Systolic blood pressure 149 mm[Hg] Christina Praisler-Wood METER READER CHIEF.PULP ROLLER Work Phone: [facility] 05-13-2022 08:31-0400 Body height 157.48 cm [facility] Work Phone: 02-16-2022 07:33-0400 Body temperature 97.2 [degF] Robby Laith METER READER CHIEF.PULP ROLLER Work Phone: [facility] 02-16-2022 07:33-0400 Body weight 55.34 kg Robby Laith METER READER CHIEF.PULP ROLLER Work Phone: [facility] 02-16-2022 07:33-0400 Diastolic blood pressure 74 mm[Hg] Robby Laith METER READER CHIEF.PULP ROLLER Work Phone: [facility] 02-16-2022 07:33-0400 Heart rate 56 /min Robby Laith METER READER CHIEF.PULP ROLLER Work Phone: [facility] 02-16-2022 07:33-0400 Respiratory rate 16 /min Robby Ozuna METER READER CHIEF.PULP ROLLER Work Phone: [facility] 02-16-2022 07:33-0400 SaO2% (BldA) [Mass fraction] 99 % Robby Ozuna METER READER CHIEF.PULP ROLLER Work Phone: [facility] 02-16-2022 07:33-0400 Systolic blood pressure 122 mm[Hg] Robby Ozuna METER READER CHIEF.PULP ROLLER Work Phone: [facility] Encounters Encounter Date Encounter Type Care Provider Facility Start: 01-08-2025 ambulatory Tam David Facility:[facility] Start: 01-08-2025 Non-patient / Non-visit Dr. Tam David MD -[facility] Start: 01-08-2025 End: 01-08-[address] Terri Chamberlain MD Work Phone: [facility] Work Phone: Start: 01-08-2025 End: 01-08-[address] Terri Chamberlain MD -Pulmonary Services/Neurology Work Phone: Start: 01-08-2025 End: 01-08-2025 ambulatory Terri Chamberlain Facility:[facility] Start: 12-24-2024 Encounter for genera l adult medical examination without abnormal findings Terri Chamberlain [facility] Start: 12-19-2024 Non-patient / Non-visit Jerald Mckeon DO -[facility] Start: 12-19-2024 End: 12-19-2024 Admission to same day surgery center Jerald Mckeon DO -Endoscopy Work Phone: Start: 12-19-2024 End: 12-19-2024 ambulatory Jerald Mckeon Facility:[facility] Start: 12-18-2024 End: 12-18-[address] Terri Chamberlain MD -Laboratory Work Phone: Start: 12-18-2024 End: 12-18-2024 ambulatory Terri Chamberlain Facility:[facility] Start: 12-09-2024 End: 12-09-[address] Terri Chamberlain MD -[facility] Work Phone: Start: 12-09-2024 End: 12-09-[address] Terri Chamberlain MD [facility] Start: 12-09-2024 End: 12-09-2024 ambulatory Terri Chamberlain Facility:[facility] Start: 12-09-[address] Terri Chamberlain MD Work Phone: [facility] Start: 11-07-2024 End: 11-07-2024 Subsequent hospital visit by physician Esteban Howard PA-C Work Phone: [facility] Comment on above: Arrived Start: 11-07-2024 End: 11-07-2024 Office outpatient new 30 minutes [facility] [place] Work Phone: [facility] Comment on above: Right hip pain (Prim sherif Dx) Start: 11-07-2024 ambulatory ESTEBAN HOWARD Facility:[facility] Start: 10-16-2024 Non-patient / Non-visit Dr. Terri Chamberlain MD Work Phone: -[facility] Work Phone: Start: 10-16-2024 ambulatory Christine Laith Facility:[facility] Start: 05-27-2024 End: 05-27-2024 ambulatory Avelina [place] MINGLER OPERATOR Facility:[facility] Start: 04-24-2024 End: 04-24-2024 ambulatory Avelina [place] MINGLER OPERATOR Facility:[facility] Start: 03-26-2024 End: 03-26-2024 ambulatory Terri Chamberlain Facility:[facility] Start: 12-08-2023 End: 12-08-2023 ambulatory Facility:[facility] Start: 12-08-2023 End: 12-08-2023 Patient encounter procedure Christina Biswas APRN.CNP Work Phone: [facility] Comment on above: Tick bite of abdomin al wall, initial encounter (Primary Dx) Start: 12-08-2023 End: 12-08-[address] Terri Chamberlain Work Phone: [facility] Work Phone: Start: 12-08-2023 End: 12-08-[address] Terri Chamberlain Work Phone: [facility]-Laboratory, [facility] Start: 11-29-[address] Terri Chamberlain Work Phone: [facility] Start: 11-29-2023 End: 11-29-2023 Encounter for general adult medical examination without abnormal findings Dr. Terri Chamberlain Work Phone: [facility] Start: 11-29-2023 End: 11-29-[address] Terri Chamberlain Work Phone: [facility] Work Phone: Start: 06-15-2023 End: 06-15-2023 ambulatory [facility] Work Phone: Start: 06-15-2023 End: 06-15-2023 Patient encounter procedure [facility]-Outpatient Bone Densitometry Work Phone: Start: 04-10-2023 End: 04-10-2023 ambulatory Facility:[facility] Start: 04-10-2023 End: 04-10-2023 Patient encounter procedure Christina Biswas APRN.CNP Work Phone: [facility] Comment on above: Insect bite of thora cic wall, unspecified whether front or back, initial encounter (Primary Dx); Local skin infection Start: 03-24-2023 End: 03-24-2023 ambulatory [facility] Work Phone: Start: 03-24-2023 End: 03-24-2023 Patient encounter procedure [facility]-Laboratory, Specimen Work Phone: Start: 03-24-2023 End: 03-24-2023 ambulatory [facility] Work Phone: Start: 03-24-2023 End: 03-24-2023 Patient encounter procedure [facility]-Outpatient Breast Imaging Work Phone: Start: 03-10-2023 End: 03-10-2023 ambulatory [facility] Work Phone: Start: 03-10-2023 End: 03-10-2023 Patient encounter procedure [facility]-Laboratory, Specimen Work Phone: Start: 05-13-2022 End: 05-13-2022 ambulatory [facility] Work Phone: Start: 05-13-2022 End: 05-13-2022 Patient encounter procedure [facility]-Laboratory, Andrea Smith Start: 02-16-2022 End: 02-16-2022 Subsequent hospital visit by physician [facility] Work Phone: Radiology Comment on above: Toe injury, left, in itial encounter [S99.922A] Start: 02-16-2022 End: 02-16-2022 Patient encounter procedure Robby Ozuna APRN.PULP ROLLER Work Phone: [facility] Comment on above: Toe injury, left, in itial encounter (Primary Dx) Start: 05-31-2021 End: 05-31-[address] [facility] Procedures Date Procedure Procedure Detail Performing Clinician Start: 12-18-2024 Vitamin D, 25-hydrox y measurement Dr. Terri Chamberlain MD Work Phone: Comment on above: Vitamin D StatusDefi ciency: <20 ng/mL (50nmol/L)Insufficiency: 20-30 ng/mL (50-75 nmol/L)Sufficiency: 30-100 ng/mL (75-250 nmol/L)Toxicity: >100 ng/mL (>250 nmol/L) Start: 11-07-2024 Radex hip unilateral with pelvis 2-3 views Esteban Howard PA-C Work Phone: Start: 06-15-2023 Dual energy X-ray absorptiometry Start: 03-24-2023 Screening mammograph y of left breast Start: 02-16-2022 Radex toe minimum 2 views Robby Ozuna APRN.CNP Work Phone: Start: 05-15-2017 History of mastectomy S/P mast ectomy, unspecified laterality Robby Ozuna APRN.LUIS Work Phone: Start: 05-02-2016 Colonoscopy Robby elena APRN.CNP Work Phone: Plan of Treatment Date Care Activity Detail Author Start: 2039 RSV VACCINE (1 - 1-dose 75+ series) RSV VACCINE (1 - 1-dose 75+ series) [facility] Start: 12-19-2024 Colonoscopy flx dx w/collj spec when pfrmd DIAGNOSTIC COLONOSCOPY [facility] Start: 12-19-2024 Patient discharge [facility] Start: 04-21-2024 Covid-19 Vaccine ( season) Covid-19 Vaccine ( season) [facility] Start: 04-21-2024 Influenza vaccination [facility] Start: 08-21-2023 Behavioral Health Screening Behavioral Health Screening [facility] Start: 04-21-2023 Covid-19 Vaccine ( season) Covid-19 Vaccine ( season) [facility] Start: 04-21-2023 Influenza vaccination INFLUENZA (#1) [facility] Start: 03-24-2023 Screening mammography of left breast SCREEN MAMM (CAD) W/ANGELIC UNI L [facility] Start: 02-16-2023 BP CONTROLLED (<130/80) BP CONTROLLED (<130/80) [facility] Start: 08-21-2022 DEPRESSION ASSESSMENT DEPRESSION ASSESSMENT [facility] Start: 10-14-2021 Urine microalbumin profile DTaP,Tdap,Td Vaccine (2 - Td or Tdap) [facility] Start: 05-02-2021 Colonoscopy COLONOSCOPY [facility] Start: 05-02-2021 COLORECTAL CANCER SCREENING COLORECTAL CANCER SCREENING [facility] Start: 05-02-2021 Screening for malignant neoplasm of colon [facility] Start: 05-02-2017 Screening for malignant neoplasm of colon COLORECTAL CANCER SCREENING DISCUSSION [facility] Start: 2014 Pneumococcal vaccination PNEUMOCOCCAL VACCINE SERIES (1 of 1 - PCV) [facility] Start: 2014 SHINGRIX VACCINE (1 of 2) SHINGRIX VACCINE (1 of 2) [facility] Start: 2014 Zoster vaccine hzv live for subcutaneous use ZOSTER (SHINGLES) VACCINE (1 of 2) [facility] Start: 2009 COLOGUARD (FIT-DNA) COLOGUARD (FIT-DNA) [facility] Start: [address] COLONOGRAPHY [facility] Start: 2009 DIABETES SCREEN DIABETES SCREEN [facility] Start: 2009 Diabetes Screening Diabetes Screening [facility] Start: 2009 FECAL OCCULT BLOOD FECAL OCCULT BLOOD [facility] Start: 2009 Lipid panel Lipid Screening [facility] Start: 2009 LIPID SCREEN LIPID SCREEN [facility] Start: 2009 Screening for malignant neoplasm of colon [facility] Start: 2009 SIGMOIDOSCOPY SIGMOIDOSCOPY [facility] Start: 2004 Lipid panel LIPID SCREENING [facility] Start: 2004 Mammography MAMMOGRAM [facility] Start: 2004 Screening for malignant neoplasm of breast [facility] Start: 1994 HPV TESTING HPV TESTING [facility] Start: 1994 Screening for malignant neoplasm of cervix HPV Testing [facility] Start: 1985 PAP TESTING PAP TESTING [facility] Start: 1985 Screening for malignant neoplasm of cervix [facility] Start: 1983 Third diphtheria, tetanus and acellular pertussis (DTaP) vaccination TDAP (ADULT) [facility] Start: 1983 Urine microalbumin profile DTAP,TDAP,TD (1 - Tdap) [facility] Start: 1982 ANNUAL PCP TEAM CHRONIC DISEASE VISIT ANNUAL PCP TEAM CHRONIC DISEASE VISIT [facility] Start: 1982 Anxiety Screening Anxiety Screening [facility] Start: 1982 BP CONTROLLED (<130/80) BP CONTROLLED (<130/80) [facility] in Start: 1982 Depression Screening Depression Screening [facility] Start: 1982 HEPATITIS C SCREENING HEPATITIS C SCREENING [facility] Start: 1982 Hepatitis C screening Hepatitis C Screening [facility] Start: 1982 HIV SCREENING HIV SCREENING [facility] Start: 1982 HIV screening HIV Screening [facility] Start: 1979 HIV screening HIV SCREENING DISCUSSION [facility] Start: 1976 Adult depression screening assessment DEPRESSION SCREENING [facility] Start: 1969 COVID-19 VACCINE (#1) COVID-19 VACCINE (#1) [facility] Start: 01-07-1965 COVID-19 VACCINE (#1) COVID-19 VACCINE (#1) [facility] Start: 1964 HEPATITIS B (1 of 3 - 3-dose series) HEPATITIS B (1 of 3 - 3-dose series) [facility] Start: 1964 Hepatitis C screening HEPATITIS C VIRUS SCREENING [facility] Start: 1964 Tetanus vaccination TETANUS [facility] Colonoscopy [facility] MG Breast - left Screening [facility] Path report.final Dx Spec [facility] Path report.final Dx Spec [facility] Patient referral [facility] Work Phone: [facility] Immunizations Immunization Date Immunization Notes Care Provider Inga castro 06-07-2021 influenza virus vacc ine, unspecified formulation Christina Biswas APRN.CNP Work Phone: [facility] Payers Date Payer Category Payer Private Health Insurance [facility] UMR CHOICE PLUS [id number] 2023-Present [phone] [address] [address] [place] [address] HMO [id number] 2023 Self-pay [id number] 2021 Unknown [id number] 2021 Unknown [employer] PPO [id number] 2021-Present [phone] [address] [place] [address] PPO [id number] 2021 Unknown [id number] 2019 Managed Care (unspecified) [facility] UMR [id number] 2019 Unknown [id number] 2016 Unknown [employer] [id number] 1965 Unknown [id number] 1964 Unknown [id number]. [id number] 1964 Unknown [id number]. 2.594 Private Health Insurance [employer] [id number] Unknown [id number] [id number] Unknown [id number]. 2.462 Unknown [id number]. 2.462 Unknown [id number]. 2.462 Unknown [id number] 2.462 Unknown [id number] 2.462 Unknown [id number]. 2.462 Unknown [id number] 2.462 Unknown [id number]. 2.462 Unknown [id number]. 2.462 Social History Date Type Detail Facility Start: 12-16-2024 Tobacco smoking status NHIS Never smoked tobacco [facility] Work Phone: Start: 02-16-2022 End: 12-08-2023 Alcohol intake Current drinker of alcohol (finding) [facility] Start: 1965 Sex Assigned At Not on file [facility] Start: 02-06-2022 End: 02-16-2022 Exposure to SARS-CoV-2 (event) Not sure [facility] Work Phone: Start: 12-17-2013 End: 11-29-2023 Tobacco smoking status NHIS Unknown if ever smoked [facility] Start: 1965 Sex Assigned At Female [facility] Start: 07-26-2020 End: 04-10-2023 History of Social function [facility] Start: 07-26-2020 End: 04-10-2023 Tobacco use panel [facility] National Score (1-100), lower number is lower risk Not on file [facility] Start: 11-07-2024 Sex Female (finding) [facility] NEGATED: Highlighted row Not [facility] Goals Date Patient Goal Desired Activity /State Mental Status Date Assessment Result Facility 12-19-2024 Cognitive function Touch/Shaking [facility] Work Phone: Clinical Notes 02-16-2022 to 01-08-2025 Note Date & Type Note Facility 01-08-2025 Procedure note [facility] 12-19-2024 Note [facility] Medical Records Department [address] [place] [address] History Physical Exam 12/19/24 0659 MR#: [id number] Acct: [id number] Name: EDITH LINTON Rep #: [id number] : 1965 59 From: Jerald Mckeon DO PCP: Dr. Terri Chamberlain MD Status:[facility] Location: [place] [address] HPI - General General Date of Admission: 12/19/24 Date of Service: 12/19/24 Chief Complaint: Screening colonoscopy HPI Narrative EDITH LINTON, is a 59 F who presents today for screening colonoscopy. She had a colonoscopy in the past. She has a strong family history of colon cancer. [facility] Medical History Wears contact lenses Cancer Non-smoker History of Holter monitoring Adult wellness visit Family history of malignant neoplasm of colon in relative diagnosed when younger than 50 years of age Hives Osteoarthritis High cholesterol Hypertension Hearing problem Diabetes Breast cyst Bone fracture Anemia Home Medications ???Medication ???Instructions ???Recorded ???Last Taken ???Type biotin 10,000 mcg chewable tablet 10,000 mcg PO DAILY 11/29/23 Unkn own History (Hair, Skin and Nails (biotin)) cholecalciferol (vitamin D3) 125 125 mcg PO DAILY 11/29/23 12/18/24 History mcg (5,000 unit) tablet fexofenadine 180 mg tablet 180 mg PO 3XW 11/29/23 12/18/24 Hi story mecobalamin (vitamin B12) 500 mcg 500 mcg PO DAILY 11/29/23 Unknown History chewable tablet estradiol 0.01% (0.1 mg/gram) See Rx Instructions vaginal 12/18/24 Rx vaginal cream .COMPLEX #42.5 grams krill oil 500 mg capsule 500 mg PO QDAY 10/16/24 Unknown Hi story lactobacillus combination no.9 4 4,000 mmu cells PO QDAY 10/16/24 U nknown History billion cell capsule (Adult 50 Plus Probiotic) niacinamide 500 mg capsule 500 mg PO QDAY 10/16/24 Unknown Hi story lisinopril 20 mg tablet 20 mg PO DAILY #90 tabs 12/09/24 0 12/18/24 Rx Allergy/AdvReac Type Severity Reaction Status Date / Time No Known Allergies Allergy Verified 12/19/24 06:39 Family History Unknown Blood clot in vein pt does not have L-V gene Colon cancer Cousin at 43yrs Mother Dementia Father Colon cancer At 49yrs Aunt Colon cancer Uncle Colon cancer Other Alcoholism Anxiety CVA (cerebral vascular accident) Diabetes High cholesterol Hypertension Osteoporosis Surgical History History of reconstruction of right breast History of partial mastectomy of right breast Hx of colonoscopy Breast cancer Social History household members: spouse current occupational status: retired current occupation: Retired Smoking Status: Never smoker alcohol intake: current details: IPA's 1 can 4xweek substance use type: other details: CBD tea /legal what type of physical activity do you participate in: other details: crossfit style running frequency: 3-4 times per week seatbelt use: always do you feel safe at home: Yes 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 Constitutional Constitutional: Denies fatigue, fever(s), poor appetite, weight gain or weight loss Gastrointestinal Gastrointestinal: Denies belching, bloating, change in bowel habits, change in stool character, chewing difficulty, coffee ground emesis, constipation, cramping, diarrhea, dyspepsia, dysphagia, early satiety, excessive flatus, fecal incontinence, heartburn, hematemesis, hematochezia, hemorrhoids, loose stools, melena, nausea, odynophagia, rectal bleeding, tenesmus, vomiting or weight changes Vital Signs Vital Signs Vital Signs: 12/19/24 06:33 12/19/24 06:40 12/19/24 06:40 Temperature 97.5 F L 97.5 F L Temperature Source Temporal Pulse Rate 63 63 Respiratory Rate 17 17 Respiratory Pattern Normal Blood Pressure 149/87 H 149/87 H Blood Pressure Mean 107 Blood Pressure Source Monitor Blood Pressure Position Semi-Fowlers Blood Pressure Location Left Arm Pulse Ox 100 100 Oxygen Delivery Method Room Air Room Air Weight Weight: 125 lb 10.616 oz Body Mass Index (BMI) 22.9 Physical Exam Const alert, oriented x3, no apparent distress and healthy appearing General Appearance: cooperative GI normal to inspection, nondistended, normoactive bowel sounds, soft to palpation, non-tender and non- distended Percussion: normal to percussion Rectal Exam: deferred Assessment Plan Assessment/Plan (1) Encounter for screening for malignant neoplasm of colon: PLAN: She was explained alternatives, risk, benefits including not withstanding bleeding, infection, sepsis, perforation, need for darin (more content not included)... [facility] 12-09-2024 Evaluation note Diagnosis Onset Date Resolution Adult wellness visit acute Apri 2024 11:04am Breast cancer acute December 09, 2024 11:04am Carpal tunnel syndrome, left acute December 09, 2024 11:04am Diabetes acute December 09 11:04am High cholesterol acute December 092024 11:04am Hypertension chronic December 09, 2024 11:04am Encounter for screening for malignant neoplasm of colon acute December 19, 2024 6: 14am [facility] Work Phone: [phone]) 853-820203-21-2025 Reason for visit Narrative* Diagnostic X- Ray (Routine) - New Request Specialty Diagnoses / Procedures Referred By Maria Ines hidalgo Referred To Contact Diagnoses Right hip pain Procedures XR HIP RIGHT 2-3 VIEWS Esteban Howard PA-C [id number] [place] [address] Phone: tel: fax: Referral ID Status Reason Start Date Expiration Date V isits Requested Visits Authorized [id number] New Request 11/07/2024 12/02/2025 1 1 [facility]03-20-2025 History of Present illness Narrative* Esteban Howard PA-C - 11/07/2024 12:40 PM EDT Subjective Edith Linton is a 59 y.o. female who presents for Pain of the Right Hip (CC: she is a 59 y.o. female c/o R hip pain./Onset/How and When? Started to hurt Monday but bad Monday - may be from a heavy deadlift on Monday/Pain located Lateral thigh and posterior ham/glute./Described as sharp./Mechanical symptoms: No/N/T present: No/Aggravated by turning to the right in bed, carring groceries. 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 She suspects the pain may be due to a lifting injury sustained during a gym competition on Monday, where she performed 25 repetitions of deadlifts with an additional 20 pounds. Despite maintaining proper form, she experienced discomfort in her hip, which she initially attributed to a tight tendon. The pain, which she describes as a sensation rather than a sharp pain, was localized to the area of tendon attachment. On Monday, she attempted her usual workout routine, including air squats and biking, but found that these activities exacerbated her discomfort. By Monday morning, she was unable to bear full weight on her right leg, and the pain has progressively worsened each morning since. This is her first experience with such symptoms. She also reports difficulty rolling to the right in bed, although she can roll to the left without issue. She rates her pain as an 8 or 9 out of 10, particularly when carrying groceries. The pain is predominantly located on the side of her hip, but in the mornings, it extends to the entire hip area. She reports no numbness or tingling down her leg, andno snapping, cracking, or popping sounds during the lifting incident. She also reports no bruising in the hip area. She is a side sleeper and has been sleeping on her back and left side due to the pain. She finds stairs challenging when her hip is flared up. She has been managing the pain with ice and a heating pad. She has not had an x-ray. She has not had any previous issues with her right hip and has not undergone any surgery on that hip. Objective Physical Exam Gait: Antalgic no Trendelenburg no Back: Flexion, Extension, Lateral and Rotational Movements Non-TTP over Lumbar and SI regions. Negative SLR bilaterally. Knee: Active range of motion is painless. Non-tender to palpation. Hip ROM: Right Hip ROM: IR = 20 ER = 45 Extension = Normal Flexion = 120 GERMAN = 12 cm Adduction = Normal Abduction = Normal Left Hip ROM: IR = 20 ER = 45 Extension = Normal Flexion = 120 GERMAN = 12 cm Adduction = Normal Abduction = Normal Right Hip PAIN: Flexion no Flexion/IR no Mel/Scour no Psoas no Dial no Posterior Impingement no Trochanter no Piriformis no Hernia pain no Adductor no CMS Intact yes Left Hip PAIN: Flexion no Flexion/IR no Mel/Scour no Psoas no Dial no Posterior Impingement no Trochanter no Piriformis pain no Hernia pain no Adductor no CMS intact yes Results Right hip radiographs reveal no acute osseous abnormalities. Degen changes notes within joint. Space intact. Assessment & Plan 1. Right-sided hip pain. The patient reports right-sided hip pain that began on Monday after lifting weights at the gym. She describes the pain as severe, especially in the morning, and it radiates from the side to the front of the hip. There is no history of similar pain, no numbness or tingling, and no audible pop during the incident. Physical examination reveals tenderness in the external rotators and piriformis muscles but no significant pain in the hamstring or gluteal muscles. The differential diagnosis includesmuscle strain, particularly in the external rotators or piriformis muscles. An x-ray will be conducted to rule out any bone abnormalities. Anti-inflammatory medication will be prescribed to reduce inf lammation. She is advised to perform simple hip stretches. If the x-ray shows no abnormalities and symptoms persist, further evaluation may be considered. She may see me back PRN. Esteban Howard PA-C documented in this [facility] NoteHNO ID: [id number] Author: CHRISTINA BISWAS APRN.PULP ROLLER Service: ? Author Type: Nurse Practitioner Type: Progress Notes Filed: 12/08/2023 16:27 Note Text: Subjective HPI Edith Linton is a 58 year old female who presents with concern for tick bites. She was weeding raspberries yesterday and pulled a tick out of her hair today, and then found one crawling on her later. Today while taking a shower she noticed a bite on her right abdominal wall and one on her left buttock. She denies pain or rash at the sites. She did not see a tick at these sites but given the fact she had 2 crawling on her recently is cause for concern. Review of Systems Constitutional: Negative for chills and fever. Respiratory: Negative. Cardiovascular: Negative. Musculoskeletal: Negative for joint pain and myalgias. Skin: Negative for itching and rash. Neurological: Negative for headaches. BP 134/91 Pulse (!) 59 Temp 36.5 ?C (97.7 ?F) Resp 18 Wt 57 kg (125 lb 10.6 oz) SpO2 98% BMI 22.26 kg/m? PAST MEDICAL HISTORY Diagnosis Date Anemia Blood dyscrasia Family history of malignant neoplasm of gastrointestinal tract Gestational diabetes Internal hemorrhoids without mention of complication Unspecified essential hypertension PAST SURGICAL HISTORY Procedure Laterality Date COLONOSCOPY FLX DX W/COLLJ SPEC WHEN PFRMD 1999 Colonoscopy COLONOSCOPY FLX DX W/COLLJ SPEC WHEN PFRMD 11/30/04 Colonoscopy COLONOSCOPY FLX DX W/COLLJ SPEC WHEN PFRMD 12/02/10 COLONOSCOPY FLX DX W/COLLJ SPEC WHEN PFRMD 05/02/2016 Colonoscopy ALLERGIES Patient has no known allergies. MEDICATIONS fexofenadine HCl (MECCA HIVES ORAL) Take by mouth. At night for hives per dermatology lisinopril (ZESTRIL, PRINIVIL) 20 mg tablet Take 20 mg by mouth once daily. doxycycline hyclate (VIBRAMYCIN) 100 mg capsule Take 2 capsules by mouth one time only for 1 dose. cholecalciferol (VITAMIN D3) 5,000 unit tab Take 1 tablet by mouth once daily. (Patient not taking: Reported on 04/10/2023) MEDICATION, NON-DATABASE Mushroom . Broccoli supplement (Patient not taking: Reported on 04/10/2023) selenium 200 mcg cap Take by mouth. (Patient not taking: Reported on 04/10/2023) no.82/iron/folate no2 (TL FOLATE ORAL) Take by mouth. 400 mcg (Patient not taking: Reported on 12/02/2020) MAGNESIUM CITRATE ORAL Take by mouth. (Patient not taking: Reported on 12/08/2023) MEDICATION, NON-DATABASE Take 1,000 Each by mouth once daily. MEDICATION: vit D DOSE: 1000 units ROUTE: po FREQUENCY: daily Physician Name: , Pager Number: , This order is a communication order to pharmacy when the desired medication could not be located. Pharmacy will clarify this order based on the information above. It is not recommended to administer or document administrations until this clarification occurs. FAMILY HISTORY Problem Relation Age of Onset Colon Cancer Father Colon Cancer Paternal Aunt Colon Cancer Paternal Uncle Heart disease Mother Hypertension Mother Hyperlipidemia Mother Heart Failure Mother other (leukemia) Mother other (leukemia) Brother Social History Tobacco Use Smoking status: Never Smokeless tobacco: Never Substance Use Topics Alcohol use: Yes Drug use: No Objective Physical Exam Vitals and nursing note reviewed. Constitutional: Appearance: Normal appearance. Cardiovascular: Rate and Rhythm: Normal rate. Pulmonary: Effort: Pulmonary effort is normal. Musculoskeletal: General: No swelling or tenderness. Skin: General: Skin is warm and dry. Capillary Refill: Capillary refill takes less than 2 seconds. Findings: Bruising and erythema present. Neurological: Mental Status: She is alert. ASSESSMENT/PLAN: 1. Tick bite of abdominal wall, initial encounter - ICD9: 911.4, E906.4, ICD10: S30.861A, W57.XXXA - DOXYCYCLINE HYCLATE 100 MG CAPSULE - Follow-up with your PCP in 3-5 days if symptoms have not improved or sooner if symptoms worsen - Discussed red flags and need for immediate medical evaluation if any occur. - Discussed supportive care treatment with fluids, rest and analgesia. - Discussed expected course of illness Christina Biswas APRN.[facility] History of Present illness Narrative* Christina Biswas APRN.PULP ROLLER - 12/08/2023 4:23 PM EDT Images from the original note were not included. Subjective HPI Edith Lintno is a 58 year old female who presents with concern for tick bites. She was weeding raspberries yesterday and pulled a tick out of her hair today, and then found one crawling on her later. Today while taking a shower she noticed a bite on her right abdominal wall and one on her left buttock. She denies pain or rash at the sites. She did not see a tick at these sites but given the fact she had 2 crawling on her recently is cause for concern. Review of Systems Constitutional: Negative for chills and fever. Respiratory: Negative. Cardiovascular: Negative. Musculoskeletal: Negative for joint pain and myalgias. Skin: Negative for itching and rash. Neurological: Negative for headaches. BP 134/91 Pulse (!) 59 Temp 36.5 C (97.7 F) Resp 18 Wt 57 kg (125 lb 10.6 oz) SpO2 98% BMI 22.26 kg/m PAST MEDICAL HISTORY Diagnosis Date Anemia Blood dyscrasia Family history of malignant neoplasm of gastrointestinal tract Gestational diabetes Internal hemorrhoids without mention of complication Unspecified essential hypertension PAST SURGICAL HISTORY Procedure Laterality Date COLONOSCOPY FLX DX W/COLLJ SPEC WHEN PFRMD 1999 Colonoscopy COLONOSCOPY FLX DX W/COLLJ SPEC WHEN PFRMD 11/30/04 Colonoscopy COLONOSCOPY FLX DX W/COLLJ SPEC WHEN PFRMD 12/02/10 COLONOSCOPY FLX DX W/COLLJ SPEC WHEN PFRMD 05/02/2016 Colonoscopy ALLERGIES Patient has no known allergies. MEDICATIONS fexofenadine HCl (MECCA HIVES ORAL) Take by mouth. At night for hives per dermatology lisinopril (ZESTRIL, PRINIVIL) 20 mg tablet Take 20 mg by mouth once daily. doxycycline hyclate (VIBRAMYCIN) 100 mg capsule Take 2 capsules by mouth one time only for 1 dose. cholecalciferol (VITAMIN D3) 5,000 unit tab Take 1 tablet by mouth once daily. (Patient not taking:Reported on 04/10/2023) MEDICATION, NON-DATABASE Mushroom . Broccoli supplement (Patient not taking: Reported on 04/10/2023) selenium 200 mcg cap Take by mouth. (Patient not taking: Reported on 04/10/2023) no.82/iron/folate no2 (TL FOLATE ORAL) Take by mouth. 400 mcg (Patient not taking: Reported on 12/02/2020) MAGNESIUM CITRATE ORAL Take by mouth. (Patient not taking: Reported on 12/08/2023) MEDICATION, NON-DATABASE Take 1,000 Each by mouth once daily. MEDICATION: vit D DOSE: 1000 units ROUTE: po FREQUENCY: daily Physician Name: , Pager Number: , This order is a communication order to pharmacy when the desired medication could not be located. Pharmacy will clarify this order based on the information above. It is not recommended to administer or document administrations until this clarification occurs. FAMILY HISTORY Problem Relation Age of Onset Colon Cancer Father Colon Cancer Paternal Aunt Colon Cancer Paternal Uncle Heart disease Mother Hypertension Mother Hyperlipidemia Mother Heart Failure Mother other (leukemia) Mother other (leukemia) Brother Social History Tobacco Use Smoking status: Never Smokeless tobacco: Never Substance Use Topics Alcohol use: Yes Drug use: No Objective Physical Exam Vitals and nursing note reviewed. Constitutional: Appearance: Normal appearance. Cardiovascular: Rate and Rhythm: Normal rate. Pulmonary: Effort: Pulmonary effort is normal. Musculoskeletal: General: No swelling or tenderness. Skin: General: Skin is warm and dry. Capillary Refill: Capillary refill takes less than 2 seconds. Findings: Bruising and erythema present. Neurological: Mental Status: She is alert. ASSESSMENT/PLAN: 1. Tick bite of abdominal wall, initial encounter - ICD9: 911.4, E906.4, ICD10: S30.861A, W57.XXXA - DOXYCYCLINE HYCLATE 100 MG CAPSULE - Follow-up with your PCP in 3-5 days if symptoms have not improved or sooner if symptoms worsen - Discussed red flags and need for immediate medical evaluation if any occur. - Discussed supportive care treatment with fluids, rest and analgesia. - Discussed expected course of illness Christina Biswas APRN.CNP documented in this encounter[facility] Instructions* Patient Instructions* Christina Biswas APRN.CNP - 12/08/2023 4:23 PM EDT ASSESSMENT/PLAN: 1. Tick bite of abdominal wall, initial encounter - ICD9: 911.4, E906.4, ICD10: S30.861A, W57.XXXA - DOXYCYCLINE HYCLATE 100 MG CAPSULE - Follow-up with your PCP in 3-5 days if symptoms have not improved or sooner if symptoms worsen - Discussed red flags and need for immediate medical evaluation if any occur. - Discussed supportive care treatment with fluids, rest and analgesia. - Discussed expected course of illness Christina Biswas APRN.PULP ROLLER Avoiding Tick Bites How can I avoid tick bites? If you are planning an outdoor activity, especially those in a heavily wooded area, it is importantto follow a few simple precautions to protect yourself from tick bites. Wear long sleeved, light-colored clothing, with tightly woven fabric. This gives ticks less area totarget and allows you to see ticks on your clothing. When traveling through the [place] or [place], stay near the center of the trails. At home, make sure that you keep your lawn mowed and bushes and trees trimmed as short as possible. If you choose to apply tick repellents, such as those containing DEET, try to avoid spraying them directly to your bare skin. (high concentrations of DEET may have harmful effects on the nervous system.) Apply the spray to your clothing, socks, shoes, tents and backpacks. When returning from the outdoors, check for ticks. Be especially observant of hair, body folds, ears, underarms and the back. Check your clothes and gear for ticks and wash these items immediately. What if I have been bitten by a tick? If you discover a tick, remove it immediately. The longer the tick feeds, the greater chance that it can transmit its bacteria to you. The easiest removal method is to use a pair of tweezers, grasp the tick as close to your skin as possible, and gently pull the tick off. Then, thoroughly wash your hands and the bite area with rubbing alcohol to prevent transmission to other areas of your body. When should I call the doctor? It is best to wait and see whether you develop any signs or symptoms. If a large red vinicius forms around the tick bite or if you develop fever, flu-like symptoms, rash, or more severe illness, contact your doctor right away. Your doctor can determine whether these symptoms might be caused by a tick-borne disease, and whether antibiotics will be needed. Is there a vaccine for preventing tick-borne disease in humans? Currently there are vaccines being tested, but there are no guarantees that they will be effective.The best option is to take precautions so that tick bites do not occur in the first place. Early Signs and Symptoms (3 to 30 days after tick bite) Fever, chills, headache, fatigue, muscle and joint aches, and swollen lymph nodes Erythema migrans (EM) rash: Occurs in approximately 70 to 80 percent of infected persons Begins at the site of a tick bite after a delay of 3 to 30 days (average is about 7 days) Expands gradually over a period of days reaching up to 12 inches or more (30 cm) across May feel warm to the touch but is rarely itchy or painful Sometimes clears as it enlarges, resulting in a target or bull's-eye appearance May appear on any area of the body Later Signs and Symptoms (days to months after tick bite) Severe headaches and neck stiffness Additional EM rashes on other areas of the body Arthritis with severe joint pain and swelling, particularly the knees and other large joints. Facial or Ribera's palsy (loss of muscle tone or droop on one or both sides of the face) Intermittent pain in tendons, muscles, joints, and bones Heart palpitations or an irregular heart beat (Lyme carditis) Episodes of dizziness or shortness of breath Inflammation of the brain and spinal cord Nerve pain Shooting pains, numbness, or tingling in the hands or feet Problems with short-term memory documented in this encounterUniversity [facility]08-21-2023 NoteHNO ID: [id number] Author: Christina Biswas APRN.PULP ROLLER Service: ? Author Type: Nurse Practitioner Type: Progress Notes Filed: 04/10/2023 4:23 PM Note Text: Subjective HPI Edith Linton is a 57 year old female who presents with an insect bite on her right chest wall. This happened 5 days ago- unknown type of insect. It has been red, slightly swollen and itchy since. She was using some ointment on it as well as ice packs. It has not resolved so she wanted it checked. Review of Systems Constitutional: Negative for chills and fever. Respiratory: Negative. Cardiovascular: Negative. Musculoskeletal: Negative for myalgias. Skin: Positive for itching. Negative for rash. BP 149/99 Pulse (!) 58 Temp 36.3 ?C (97.3 ?F) Resp 18 Wt 57.3 kg (126 lb 6.4 oz) SpO2 99% BMI 22.39 kg/m? PAST MEDICAL HISTORY Diagnosis Date Anemia Blood dyscrasia Family history of malignant neoplasm of gastrointestinal tract Gestational diabetes Internal hemorrhoids without mention of complication Unspecified essential hypertension PAST SURGICAL HISTORY Procedure Laterality Date COLONOSCOPY FLX DX W/COLLJ SPEC WHEN PFRMD 1999 Colonoscopy COLONOSCOPY FLX DX W/COLLJ SPEC WHEN PFRMD 11/30/04 Colonoscopy COLONOSCOPY FLX DX W/COLLJ SPEC WHEN PFRMD 12/02/10 COLONOSCOPY FLX DX W/COLLJ SPEC WHEN PFRMD 05/02/2016 Colonoscopy ALLERGIES Patient has no known allergies. MEDICATIONS FAMILY HISTORY Problem Relation Age of Onset Colon Cancer Father Colon Cancer Paternal Aunt Colon Cancer Paternal Uncle Heart disease Mother Hypertension Mother Hyperlipidemia Mother Heart Failure Mother other (leukemia) Mother other (leukemia) Brother Social History Tobacco Use Smoking status: Never Smokeless tobacco: Never Substance Use Topics Alcohol use: Yes Drug use: No Objective Physical Exam Vitals and nursing note reviewed. Constitutional: Appearance: Normal appearance. Cardiovascular: Rate and Rhythm: Normal rate. Pulmonary: Effort: Pulmonary effort is normal. Chest: Skin: General: Skin is warm and dry. Capillary Refill: Capillary refill takes less than 2 seconds. Findings: Erythema present. No rash. Neurological: Mental Status: She is alert. ASSESSMENT/PLAN: 1. Insect bite of thoracic wall, unspecified whether front or back, initial encounter - ICD9: 911.4, E906.4, ICD10: S20.96XA, W57.XXXA (primary diagnosis) - unknown type of insect 2. Local skin infection - ICD9: 686.9, ICD10: L08.9 - Begin treatment with doxycycline - Follow-up with your PCP in 3-5 days if symptoms have not improved or sooner if symptoms worsen - Discussed red flags and need for immediate medical evaluation if any occur. - Discussed supportive care treatment with fluids, rest and analgesia. - Discussed expected course of illness Christina Biswas APRN.[facility]08-[facility]2023 History of Present illness Narrative* Christina Biswas APRN.LUIS - 04/10/2023 4:20 PM EDT Images from the original note were not included. Subjective HPI Edith Linton is a 57 year old female who presents with an insect bite on her right chest wall. This happened 5 days ago- unknown type of insect. It has been red, slightly swollen and itchy since. She was using some ointment on it as well as ice packs. It has not resolved so she wanted it checked. Review of Systems Constitutional: Negative for chills and fever. Respiratory: Negative. Cardiovascular: Negative. Musculoskeletal: Negative for myalgias. Skin: Positive for itching. Negative for rash. BP 149/99 Pulse (!) 58 Temp 36.3 C (97.3 F) Resp 18 Wt 57.3 kg (126 lb 6.4 oz) SpO2 99% BMI 22.39 kg/m PAST MEDICAL HISTORY Diagnosis Date Anemia Blood dyscrasia Family history of malignant neoplasm of gastrointestinal tract Gestational diabetes Internal hemorrhoids without mention of complication Unspecified essential hypertension PAST SURGICAL HISTORY Procedure Laterality Date COLONOSCOPY FLX DX W/COLLJ SPEC WHEN PFRMD 1999 Colonoscopy COLONOSCOPY FLX DX W/COLLJ SPEC WHEN PFRMD 11/30/04 Colonoscopy COLONOSCOPY FLX DX W/COLLJ SPEC WHEN PFRMD 12/02/10 COLONOSCOPY FLX DX W/COLLJ SPEC WHEN PFRMD 05/02/2016 Colonoscopy ALLERGIES Patient has no known allergies. MEDICATIONS FAMILY HISTORY Problem Relation Age of Onset Colon Cancer Father Colon Cancer Paternal Aunt Colon Cancer Paternal Uncle Heart disease Mother Hypertension Mother Hyperlipidemia Mother Heart Failure Mother other (leukemia) Mother other (leukemia) Brother Social History Tobacco Use Smoking status: Never Smokeless tobacco: Never Substance Use Topics Alcohol use: Yes Drug use: No Objective Physical Exam Vitals and nursing note reviewed. Constitutional: Appearance: Normal appearance. Cardiovascular: Rate and Rhythm: Normal rate. Pulmonary: Effort: Pulmonary effort is normal. Chest: Skin: General: Skin is warm and dry. Capillary Refill: Capillary refill takes less than 2 seconds. Findings: Erythema present. No rash. Neurological: Mental Status: She is alert. ASSESSMENT/PLAN: 1. Insect bite of thoracic wall, unspecified whether front or back, initial encounter - ICD9: 911.4, E906.4, ICD10: S20.96XA, W57.XXXA (primary diagnosis) - unknown type of insect 2. Local skin infection - ICD9: 686.9, ICD10: L08.9 - Begin treatment with doxycycline - Follow-up with your PCP in 3-5 days if symptoms have not improved or sooner if symptoms worsen - Discussed red flags and need for immediate medical evaluation if any occur. - Discussed supportive care treatment with fluids, rest and analgesia. - Discussed expected course of illness Christina Biswas APRN.PULP ROLLER documented in this encounterUniversity Hospitals St. [facility]08-21-2023 Instructions* Patient Instructions* Christina Biswas APRN.LUIS - 04/10/2023 4:20 PM EDT ASSESSMENT/PLAN: 1. Insect bite of thoracic wall, unspecified whether front or back, initial encounter - ICD9: 911.4, E906.4, ICD10: S20.96XA, W57.XXXA (primary diagnosis) - unknown type of insect 2. Local skin infection - ICD9: 686.9, ICD10: L08.9 - Begin treatment with doxycycline - Follow-up with your PCP in 3-5 days if symptoms have not improved or sooner if symptoms worsen - Discussed red flags and need for immediate medical evaluation if any occur. - Discussed supportive care treatment with fluids, rest and analgesia. - Discussed expected course of illness Christina Biswas APRN.PULP ROLLER documented in this encounterUniversity Hospitals St. [facility]08-04-2023 NotePap Smear Specimen AdequacyAugust 2022 3:33pmComment.Satisfactory for evaluation. Endocervical and/or squamous metaplasticcells (endocervical component)are present.[facility] INTERFACED A#[id number] HealthComment on above:Satisfactory for evaluation. Endocervical and/or squamous metaplasticcells (endocervical component)are present.02-16-2022 History of Present illness Narrative* Robby Ozuna APRN.LUIS - 02/16/2022 9:03 AM EDT Images from the original note were not included. Subjective HPI HPI Edith Linton is a 56 year old female who presents today for CC of left 4th toe pain after kicking door. This started 3 weeks ago. Has tried post op shoe. Symptoms are worsened by walking. Denies numbness/tingling of left 4th toe. .Patient presents with: Toe Pain (Toe): left foot 4th toe pain, hit on door x 3 weeks PAST MEDICAL HISTORY Diagnosis Date Anemia Blood dyscrasia Family history of malignant neoplasm of gastrointestinal tract Gestational diabetes Internal hemorrhoids without mention of complication Unspecified essential hypertension PAST SURGICAL HISTORY Procedure Laterality Date COLONOSCOPY FLX DX W/COLLJ SPEC WHEN PFRMD 1999 Colonoscopy COLONOSCOPY FLX DX W/COLLJ SPEC WHEN PFRMD 11/30/04 Colonoscopy COLONOSCOPY FLX DX W/COLLJ SPEC WHEN PFRMD 12/02/10 COLONOSCOPY FLX DX W/COLLJ SPEC WHEN PFRMD 05/02/2016 Colonoscopy ALLERGIES Patient has no known allergies. MEDICATIONS cholecalciferol (VITAMIN D3) 5,000 unit tab Take 1 tablet by mouth once daily. MEDICATION, NON-DATABASE Mushroom . Broccoli supplement selenium 200 mcg cap Take by mouth. MAGNESIUM CITRATE ORAL Take by mouth. lisinopril (ZESTRIL, PRINIVIL) 20 mg tablet Take 20 mg by mouth once daily. no.82/iron/folate no2 (TL FOLATE ORAL) Take by mouth. 400 mcg MEDICATION, NON-DATABASE Vitamin D3 1000 units takes 1 four times per week FAMILY HISTORY Problem Relation Age of Onset Colon Cancer Father Colon Cancer Paternal Aunt Colon Cancer Paternal Uncle Heart disease Mother Hypertension Mother Hyperlipidemia Mother Heart Failure Mother other (leukemia) Mother other (leukemia) Brother Social History Tobacco Use Smoking status: Never Smoker Smokeless tobacco: Never Used Substance Use Topics Alcohol use: Yes Drug use: No ROS Objective Blood pressure 122/74, pulse (!) 56, temperature 36.2 C (97.2 F), resp. rate 16, weight 55.3 kg (122 lb), SpO2 99 %. Physical Exam Constitutional: General: She is not in acute distress. Appearance: She is not toxic-appearing or diaphoretic. HENT: Head: Normocephalic and atraumatic. Cardiovascular: Pulses: Dorsalis pedis pulses are 2+ on the left side. Posterior tibial pulses are 2+ on the left side. Pulmonary: Effort: Pulmonary effort is normal. No accessory muscle usage or respiratory distress. Musculoskeletal: Feet: Neurological: Mental Status: She is alert and oriented to person, place, and time. ASSESSMENT/PLAN: 1. Toe injury, left, initial encounter - ICD9: 959.7, ICD10: S99.922A -no bony abnormality noted on xray -given stretches/exercises -Rest, Ice, Compression, Elevation discussed -discussed use of ibuprofen -follow up with primary care if symptoms persist/worsen in 10-14 days New post op shoe provided. - XR TOE AP/LAT/OBL LEFT IMPRESSION: Soft tissue swelling of the fourth digit. No acute fracture seen. Dictated by : ATTILA BENSON MD Agrees to plan Robby Ozuna APRN.LUIS documented in this encounterUniversity Hospitals St. [facility]06-29-2022 History of Present illness Narrative* Claudia Gambino RT(R) - 02/16/2022 8:10 AM EDT Radiology Service Progress Note PATIENT NAME: Edith Linton DATE OF SERVICE: February 16, 2022 TIME: 8:13 AM PATIENT IDENTITY VERIFICATION COMPLETED USING TWO (2) IDENTIFIERS: Name and Date of confirmedby patient verbally. FALL SCREENING: Has the patient had 2 falls in the last year or 1 fall with injury or currently using an Ambulatory Assistive Device (Walker, Cane, Wheelchair, Crutches, etc.)? No PATIENT GENDER DATA: Female. status: : No status: NO. PATIENT RELEVANT IMPLANT DATA REVIEWED: Yes RADIOLOGY DEPARTMENT: General X-ray: Exam(s) Completed: Lower Extremity X- Ray(s): Toes, Left 4th toe PERIPHERAL IV DATA: Not applicable SIGNED BY: RT Dillon(R) February 16, 2022 8:13 AM documented in this encounterUniversity Hospitals St. John Medical CenterEvaludelaware psychiatric center note* Diagnosis Toe injury, left, initial encounter- Primary documented in this encounter [facility] CenterEvaludelaware psychiatric center noteNo assessment information availableWMercy Health St. [facility] Work Phone: Evaluation note* Diagnosis Insect bite of thoracic wall, unspecified whether front or back, initial encounter- Primary Local skin infection Unspecified local infection of skin and subcutaneous tissue documented in this encounter [facility] CenterEvaludelaware psychiatric center note* Diagnosis Tick bite of abdominal wall, initial encounter- Primary documented in this encounter [facility] CenterEvat[facility] note* Diagnosis Onset Date Resolution Status Carpal tunnel syndrome, left acute Encounter for wellness examination in adult acute High cholesterol acute Osteoarthritis acute Hypertension chronic [facility] Work Phone: Evaluation note* Diagnosis Right hip pain- Primary Pain in joint, pelvic region and thigh Right hip pain Pain in joint, pelvic region and thigh [facility]* Diagnosis Right hip pain Pain in joint, pelvic region and thigh documented in this encounter [facility] HospitalReason for referral (narrative)* Diagnostic Procedure Only (Urgent) - Closed Specialty Diagnoses / Procedures Referred By Contac t Referred To Contact XR IMAGING Diagnoses Toe injury, left, initial encounter Procedures XR TOE AP/LAT/OBL LEFT RADEX TOE MINIMUM 2 VIEWS Robby Ozuna APRN.CNP [address] [place] [address] Xr Imaging Referral ID Status Reason Start Date Expiration Date V isits Requested Visits Authorized [id number] Closed Auto-Generate d Referral 02/16/2022 08/20/2022 1 1 [facility] for referral (narrative)No reason for referral information availableWMercy Health St. Charles Hospital Work Phone: Reason for visit Narrative* Diagnostic Procedure Only (Urgent) - Closed Specialty Diagnoses / Procedures Referred By Contac t Referred To Contact XR IMAGING Diagnoses Toe injury, left, initial encounter Procedures XR TOE AP/LAT/OBL LEFT RADEX TOE MINIMUM 2 VIEWS Robby Ozuna APRN.CNP [address] [place] [address] [place] [id number] Referral ID Status Reason Start Date Expiration Date V isits Requested Visits Authorized [id number] Closed Auto-Generate d Referral 02/16/2022 08/20/2022 [address] [facility] [address] Summary Purpose Family History No Family History Records Found Relationship Condition Age at Onset Recorded Date/T solange Not Specified Malignant neoplasm of colon Unknown Diabetes mellitus Unknown Osteoporosis Unknown High blood cholesterol Unknown Alcoholism Unknown Anxiety Unknown Malignant neoplasm Unknown Hypertension Unknown Cerebrovascular accident (CVA) Unknown Not Specified Venous thrombosis Unknown mother Dementia Unknown Relationship Condition Age at Onset Recorded Date/T solange Not Specified Diabetes mellitus Unknown Osteoporosis Unknown High blood cholesterol Unknown Alcoholism Unknown Anxiety Unknown Hypertension Unknown Cerebrovascular accident (CVA) Unknown unrelated friend Venous thrombosis Unknown Malignant neoplasm of colon Unknown mother Dementia Unknown father Malignant neoplasm of colon Unknown aunt Malignant neoplasm of colon Unknown uncle Malignant neoplasm of colon Unknown Advance Directives No Advanced Directives Records FoundDocuments on File Type Date Recorded 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 No December 16, 2024 3:59pm Chief Complaint and Reason for Visit Chief Complaint SCREENING Chief Complaint SCREENING OSTEO Chief Complaint Annual Reason for Visit Carpal tunnel syndro me, left Encounter for wellness examination in adult High cholesterol Osteoarthritis Hypertension Chief Complaint Admit Date Amb Documentation October 16, 2024 10:03am Annual/Physical December 09, 2024 11: 04am INT LABS December 18, 2024 6:1 6am LUE; carpal tunnel syndrome January 08 1:47pm LUE; carpal tunnel syndrome January 08 2:56pm Reason for Visit Admit Date Adult wellness visit December 09, 2024 11 :04am Breast cancer December 09, 2024 11: 04am Carpal tunnel syndrome, left December 09, 2024 11:04am Diabetes December 09, 2024 11: 04am High cholesterol December 09, 2024 11: 04am Hypertension December 09, 2024 11: 04am Encounter for screening for malignant ne oplasm of colon December 19, 2024 6:14am Additional Source Comments INFORMATION SOURCE (unrecogn ized section and content) DATE CREATED AUTHOR 06/16/2021 Ben Coles [facility] DATE CREATED AUTHOR AUTHOR'S ORGANIZ ATION 12/10/2023 [facility] DATE CREATED AUTHOR AUTHOR'S ORGANIZ ATION 11/09/2024 [facility] DATE CREATED AUTHOR AUTHOR'S ORGANIZ ATION 01/15/2025 Ariel [facility] Source Comments (unrecognize d section and content) In the event this informatio n is protected by the Federal Confidentiality of Alcohol and Drug Abuse Patient Records regulations: The Federal rules restrict any use of the information to criminally investigate or prosecute any alcohol or drug abuse patient.[facility] Medical CenterIn the event this information is protected by the Federal Confidentiality of Alcohol and Drug Abuse Patient Records regulations: The Federal rules restrict any use of the information to criminally investigate or prosecute any alcohol or drug abuse patient.[facility] CenterIn the event this information is protected by the Federal Confidentiality of Alcohol and Drug Abuse Patient Records regulations: The Federal rules restrict any use of the information to criminally investigate or prosecute any alcohol or drug abuse patient.[facility] Medical CenterIn the event this information is protected by the Federal Confidentiality of Alcohol and Drug Abuse Patient Records regulations: The Federal rules restrict any use of the information to criminally investigate or prosecute any alcohol or drug abuse patient.[facility] Reason for Visit (unrecogniz ed section and content) Reason Comments Toe Pain (Toe) left foot 4th toe pa in, hit on door x 3 weeks Specialty Diagnoses / Procedures Referred By Maria Ines t Referred To Contact [facility] / [facility] Diagnoses Toe injury Left foot 4th toe injury Procedures OFFICE/OUTPATIENT NEW MODERATE MDM 45-59 MINUTES NEW SAME DAY Self Robby Ozuna APRN.PULP ROLLER [address] [place] [address] Referral ID Status Reason Start Date Expiration Date Visits Re quested Visits Authorized [id number] Closed 02/16/2022 08/20/2022 1 1 Reason Comments Insect Bite R shoulder x1 week, hornet sting R hand index finger x2 days Specialty Diagnoses / Procedures Referred By Maria Ines t Referred To Contact [facility] / [facility] Diagnoses Tick bite of right shoulder possible tick bite right shoulder blade x1w Procedures OFFICE/OUTPATIENT ESTABLISHED MOD MDM 30-39 MIN EST SAME DAY Self [facility] [address] [place] [address] Referral ID Status Reason Start Date Expiration Date Visits Re quested Visits Authorized [id number] Closed 04/10/2023 08/20/2023 1 1 Reason Comments Insect Bite R side abd, Left but tock x 1 day Reason Comments Pain CC: she is a 59 y.o. female c/o R hip pain.Onset/How and When? Started to hurt Monday but bad Monday - may be from a heavy deadlift on MondayPain located Lateral thigh and posterior ham/glute.Described as sharp.Mechanical symptoms: NoN/T present: NoAggravated by turning to the right in bed, carring groceries. 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 Maryanne Dsouza MD Family Provider Active Dr. Terri Chamberlain MD Primary Care Provider Active Team Status: Inactive Member Role Status Dates Blank Shepherd DO Primary Care Provider Active Dr. Octavia Muniz DO Attending Provider, Referrin g Provider Active Team Status: Inactive Member Role Status Dates Dr. Terri Chamberlain MD Primary Care Pro vider, Attending Provider, Referring Provider Active Team Status: Active Member Role Status Dates Dr. Terri Chamberlain MD Primary Care Provider Active Dr. Octavia Muniz DO Attending Provider Active Team Status: Inactive Member Role Status Dates Dr. Terri Chamberlain MD Primary Care Provider Active Dr. Octavia Muniz DO Attending Provider Active Team Status: Inactive Member Role Status Dates Dr. Terri Chamberlain MD Primary Care Provider, Attendi ng Provider Active Team Status: Active Member Role Status Dates Dr. Terri Chamberlain MD Primary Care Provider Active Team Status: Active Member Role Status Dates Dr. Terri Chamberlain MD Primary Care Provider Active Start: October 16, 2024 [facility] Attending Provider Active Start: [facility]2024 Team Status: Inactive Member Role Status Dates Dr. Terri Chamberlain MD Primary Care Provider Active Start: December 09, 2024 End: December 09, 2024 Dr. Terri Chamberlain MD Attending Provider Active Start: December 09, 2024 End: December 09, 2024 Team Status: Inactive Member Role Status Dates Dr. Terri Chamberlain MD Primary Care Provider Active Start: December 18, 2024 End: December 18, 2024 Dr. Terri Chamberlain MD Attending Provider Active Start: December 18, 2024 End: December 18, 2024 Dr. Terri Chamberlain MD Referring Provider Active Start: December 18, 2024 End: December 18, 2024 Team Status: Inactive Member Role Status Dates Dr. Terri Chamberlain MD Primary Care Provider Active Start: December 19, 2024 End: December 19, 2024 Dr. Terri Chamberlain MD Referring Provider Active Start: December 19, 2024 End: December 19, 2024 Dr. Jerald Mckeon DO Attending Provider Active Start: December 19, 2024 End: December 19, 2024 Team Status: Active Member Role Status Dates Dr. Terri Chamberlain MD Primary Care Provider Active Start: December 19, 2024 Dr. Terri Chamberlain MD Referring Provider Active Start: December 19, 2024 Dr. Jerald Mcekon DO Attending Provider Active Start: December 19, 2024 Dr. Jerald Mckeon DO Other Provider Active St art: December 19, 2024 Team Status: Inactive Member Role Status Dates Dr. Terri Chamberlain MD Primary Care Provider Active Start: January 08, 2025 End: January 08, 2025 Dr. Terri Chamberlain MD Attending Provider Active Start: January 08, 2025 End: January 08, 2025 Dr. Terri Chamberlain MD Referring Provider Active Start: January 08, 2025 End: January 08, 2025 Team Status: Active Member Role Status Dates Dr. Terri Chamberlain MD Primary Care Provider Active Start: January 08, 2025 Dr. Terri Chamberlain MD Referring Provider Active Start: January 08, 2025 Dr. Terri Chamberlain MD Other Provider Active St art: January 08, 2025 Dr. Tam David MD Attending Provider Active S tart: January 08, 2025 FOR RECORDS PERTAINING TO PATIENTS WHO ARE OR HAVE BEEN ENROLLED IN A CHEMICAL DEPENDENCY/SUBSTANCEABUSE PROGRAM, SOME INFORMATION MAY BE OMITTED. This clinical summary was aggregated from multiple sources. Caution should be exercised in using it in the provision of clinical care. This summary normalizes information from multiple sources, and as a consequence, information in this document may materially change the coding, format and clinical context of patient data. In addition, data may be omitted in some cases. CLINICAL DECISIONS SHOULD BE BASED ON THE PRIMARY CLINICAL RECORDS. [employer] provides no warranty or guarantee of the accuracy or completeness of information in this document.
--- NOTE | 2025-01-31 06:32 | RAD_ITS ---
PROCEDURE: CERV SPINE 2 OR 3 VIEWS 01/31/2025 REASON FOR EXAM: CERVICAL RADICULOPATHY TECHNIQUE: 2 views of the cervical spine. COMPARISON: None. FINDINGS: Straightening of the cervical lordosis, probably muscular spasm and pain. Grade 1 retrolisthesis of C5 on C6 measuring 3.4 mm. There are diffuse spondylotic changes. Findings are demonstrated to by diffuse disc space narrowing, osteophyte formation and degenerative endplate sclerosis. There is diffuse facet joint arthropathy with secondary bilateral neural foramina narrowing. No fracture or dislocation is seen. No aggressive lytic or blastic bony lesion is noted. Bilateral prominent transverse processes of C7, chronic finding. RAD/Cerv Spine 2 or 3 Views IMPRESSION: Spondylosis. Reading [facility]
== END | disposition home or self-care (01) ==
LOC: RAD 06:23
PROVIDERS: PCP Internal Medicine; Referring Provider Internal Medicine; Visit Provider Internal Medicine
DX: M54.12 Radiculopathy, cervical region (principal)
CPT/HCPCS: 72040

== ENCOUNTER 2025-03-27 11:53 | Outpatient (RCR) | payer OTHER, SELFPAY ==
--- NOTE | 2025-03-27 12:42 | HP.PTDCSUM_ITS ---
Discharge Summary D/C summary: It has been my pleasure to treat DESMOND KIDD referred by Dr. Andrea Davenport MD, with the diagnosis of DDD for a total of 1 visit(s). Discharge Date: Please see the following information for a summary of their discharge status. Goals Goal 1:: Patient will be I with HEP Plan Plan: Perform home exercise program HEP Given IE: posture, scapular retraction, mid row, LAE, bilateral ER, Y and T on mozambican ball, supine protraction D/C Information d/c sentence: If there are questions or concerns regarding this patient's physical therapy, please feel free to call me at [phone]. Thank you for the referral of this patient. Sincerely, Shira Melendrez, JUNITOT Balance/Gait/Functional tests Balance/Special Test Scores Oswestry Low Back Score: 7
--- NOTE | 2025-03-27 12:42 | HP.PTEVAL_ITS ---
Patient's Visit Information Visit Information Visit Information: DESMOND KIDD is a 59 year old F referred to Physical Therapy by Dr. Andrea Davenport MD with a diagnosis of DDD. Date of Evaluation: 03/27/25 Physical Therapist: Shira Melendrez DPT Visit Plan Frequency: 1x/Week Duration: 1 Week Plan: Perform home exercise program HEP Given IE: posture, scapular retraction, mid row, LAE, bilateral ER, Y and T on south korean ball, supine protraction Subjective Subjective: Patient reports that she is having numbness in her left hand since she broke her collar bone in 2017- this year it has gotten worse- decreased finger dexterity and hard time picking things up and drops things. She can pick blackberries but they tend to fall out. They did an EMG which shows both carpal tunnel and some cervical impingement. He wants to take care of her wrist and see how that goes. She knows that she has bad posture and wants some exercises to improve that. She has no neck pain. Cold makes the N/T worse. She wears a brace a night but she does not notice a difference- but is not very zoroastrianism about it. Sleep: rarely wakes her up. She feels like its getting worse. Work: retired. Very active. PMHX/Meds: no change since saw ortho. Objective Objective: Posture: forward head, rounded head- can correct and maintain with verbal cues Gait: no deviation noted Palpation: not tender Sensation: diminished to light touch to the left hand ROM: WNL in all planes Strength: Scap: fair minus, Shoulder: 4+/5 throughout, Elbow: 5/5 Job Order Clerk: 80 lbs bilateral 80 lbs of force Special Tests L Shoulder Lift Off Test - Subscapular Tear: Negative L Shoulder Drop Sign - IS Test: Negative L Shoulder Empty Can - SS: Negative L Shoulder Neer - Impingement: Negative L Shoulder Romero Sandeep - Impingement: Negative Balance/Special Test Scores Oswestry Low Back Score: 7 Goals Goal 1:: Patient will be I with HEP Rehabilitation Potential Physical Therapy Diagnosis: Patient presents with decreased scapular strength/st abilization leading to increased numbness in the left hand Rehabilitation Potential: Fair Anticipated Interventions Patient/Client Instruction: Educate patient on: Benefits of Fitness Program Therapeutic Exercise to Include: Strength training, Power training, Endurance training, Balance training, Coordination, Agility training, Body mechanics, Postural training, Flexibilty training, Gait and locomotor training, Neuromotor development, Passive ROM, Active ROM, Dynamic Lumbar Stabilization and Scapular Strength/Stabilization For the Purpose of:: To improve muscle performance and motor function Text: Thank you for the opportunity to evaluate your patient. For Medicare and Medicare HMO plans, please review the plan of care and approve it. It will need to be FAXED BACK to us at [phone] for Medicare purposes. For Medicare only, by signing this I certify the plan of care. Please let me know if there are questions or concerns regarding this plan of care. Physician Signature: Date:
== END 2025-03-27 19:00 | disposition home or self-care (01) ==
LOC: PT 11:53
PROVIDERS: PCP Internal Medicine; Referring Provider Orthopaedic Surgery Orthopaedic Surgery of the Spine; Visit Provider Orthopaedic Surgery Orthopaedic Surgery of the Spine
DX: M50.30 Other cervical disc degeneration, unspecified cervical region (principal)
CPT/HCPCS: 97162

== ENCOUNTER → 2025-04-14 | Outpatient (CLI) | payer OTHER, SELFPAY ==
--- NOTE | 2025-04-14 12:45 | BI_ITS ---
EXAM: SCREEN MAMM (CAD) W/ANGELIC UNI L DATE: 04/14/2025 CLINICAL HISTORY: F, Age 59 y/o , BR CA SCREENING; HX BR CA R, MASTECTOMY R TECHNIQUE: SCREEN MAMM (CAD) W/ANGELIC UNI L COMPARISON: Prior exam(s) dated 03/26/2024 and 03/24/2023. FINDINGS: TISSUE DENSITY: The breasts are heterogeneously dense, which may obscure small masses. Bilateral Breast Mammographic Findings: A 4 mm focal density in the medial, far posterior aspect of the left breast is noted. Further workup is indicated. The focal 11 mm density seen anterior to the 4 mm density appears stable. Benign round calcifications are seen in the left breast. A stable benign-appearing 8 mm intramammary lymph node in the superior outer, far posterior aspect of the left breast is noted. BI/SCREEN MAMM (CAD) W/ANGELIC UNI L IMPRESSION: The 4 mm focal density in the medial, far posterior aspect of the left breast r equires additional workup. The patient should return for a rolled CC view and an LM view of the left breast and a spot compre ssion CC view of the left breast density. An ultrasound may also be needed. OVERALL FINAL ASSESSMENT BI-RADS 0: INCOMPLETE - NEED ADDITIONAL IMAGING EVALUATION. RECOMMENDATION: Additional Views obtained/call backs A letter with findings and recommendations will be mailed to the patient. Reading Location: [id number]
== END | disposition home or self-care (01) ==
PROVIDERS: PCP Internal Medicine; Referring Provider Internal Medicine; Visit Provider Internal Medicine
DX: Z12.31 Encounter for screening mammogram for malignant neoplasm of breast (principal); Z85.3 Personal history of malignant neoplasm of breast; Z90.11 Acquired absence of right breast and nipple
CPT/HCPCS: 77063; 77067

== ENCOUNTER → 2025-04-18 | Outpatient (CLI) | payer OTHER, SELFPAY ==
--- NOTE | 2025-04-18 09:38 | BI_ITS ---
EXAM: DIAG MAMM W/CAD, UNILAT; LT BRST UNILAT ANGELIC ADD ON; BREAST LIMITED UNILATERAL 04/18/2025 CLINICAL HISTORY: F, Age 59 y/o , ABN MAMM TECHNIQUE: Procedure Code: [id number]; BILTUNITOMO; USBRSTLIMIT Modality: MG; US Procedure: DIAG MAMM W/CAD, UNILAT; LT BRST UNILAT ANGELIC ADD ON; BREAST LIMITED UNILATERAL. COMPARISON: Prior exam(s) dated 04/14/2025, 03/26/2024, 03/24/2023. FINDINGS: MAMMOGRAM: TISSUE DENSITY: The breasts are heterogeneously dense, which may obscure small masses. Unilateral Left Breast Mammographic Findings: Follow-up examination performed for the asymmetry in the left breast seen on examination of 04/14/2025. On the present examination, there is a mass in the upper inner left breast at posterior depth that persists. ULTRASOUND: There is a cyst in the left breast at 10 o'clock 7 cm from the nipple measuring 0.6 x 0.5 x 0.2 cm. Also, there is an architecturally normal intramammary lymph node in the left breast at 10 o'clock 9 cm from the nipple measuring 0.7 x 0.5 x 0.3 cm. One of these masses likely represents the mammographic finding. There is another cyst in the left breast at 12 o'clock 2 cm from the nipple measuring 0.6 x 0.5 x 0.5 cm. BI/DIAG MAMM W/CAD, UNILAT IMPRESSION: Benign left breast intramammary lymph node and cysts. OVERALL FINAL ASSESSMENT BI-RADS 2: BENIGN RECOMMENDATION: Routine annual follow-up in 1 Year A letter with findings and recommendations will be mailed to the patient. Reading Location: [id number]
--- NOTE | 2025-04-18 09:38 | BI_ITS ---
EXAM: DIAG MAMM W/CAD, UNILAT; LT BRST UNILAT ANGELIC ADD ON; BREAST LIMITED UNILATERAL 04/18/2025 CLINICAL HISTORY: F, Age 59 y/o , ABN MAMM TECHNIQUE: Procedure Code: [id number]; BILTUNITOMO; USBRSTLIMIT Modality: MG; US Procedure: DIAG MAMM W/CAD, UNILAT; LT BRST UNILAT ANGELIC ADD ON; BREAST LIMITED UNILATERAL. COMPARISON: Prior exam(s) dated 04/14/2025, 03/26/2024, 03/24/2023. FINDINGS: MAMMOGRAM: TISSUE DENSITY: The breasts are heterogeneously dense, which may obscure small masses. Unilateral Left Breast Mammographic Findings: Follow-up examination performed for the asymmetry in the left breast seen on examination of 04/14/2025. On the present examination, there is a mass in the upper inner left breast at posterior depth that persists. ULTRASOUND: There is a cyst in the left breast at 10 o'clock 7 cm from the nipple measuring 0.6 x 0.5 x 0.2 cm. Also, there is an architecturally normal intramammary lymph node in the left breast at 10 o'clock 9 cm from the nipple measuring 0.7 x 0.5 x 0.3 cm. One of these masses likely represents the mammographic finding. There is another cyst in the left breast at 12 o'clock 2 cm from the nipple measuring 0.6 x 0.5 x 0.5 cm. BI/Lt Brst Unilat Angelic Add On IMPRESSION: Benign left breast intramammary lymph node and cysts. OVERALL FINAL ASSESSMENT BI-RADS 2: BENIGN RECOMMENDATION: Routine annual follow-up in 1 Year A letter with findings and recommendations will be mailed to the patient. Reading Location: [id number]
--- NOTE | 2025-04-18 10:36 | US_ITS ---
EXAM: DIAG MAMM W/CAD, UNILAT; LT BRST UNILAT ANGELIC ADD ON; BREAST LIMITED UNILATERAL 04/18/2025 CLINICAL HISTORY: F, Age 59 y/o , ABN MAMM TECHNIQUE: Procedure Code: [id number]; BILTUNITOMO; USBRSTLIMIT Modality: MG; US Procedure: DIAG MAMM W/CAD, UNILAT; LT BRST UNILAT ANGELIC ADD ON; BREAST LIMITED UNILATERAL. COMPARISON: Prior exam(s) dated 04/14/2025, 03/26/2024, 03/24/2023. FINDINGS: MAMMOGRAM: TISSUE DENSITY: The breasts are heterogeneously dense, which may obscure small masses. Unilateral Left Breast Mammographic Findings: Follow-up examination performed for the asymmetry in the left breast seen on examination of 04/14/2025. On the present examination, there is a mass in the upper inner left breast at posterior depth that persists. ULTRASOUND: There is a cyst in the left breast at 10 o'clock 7 cm from the nipple measuring 0.6 x 0.5 x 0.2 cm. Also, there is an architecturally normal intramammary lymph node in the left breast at 10 o'clock 9 cm from the nipple measuring 0.7 x 0.5 x 0.3 cm. One of these masses likely represents the mammographic finding. There is another cyst in the left breast at 12 o'clock 2 cm from the nipple measuring 0.6 x 0.5 x 0.5 cm. US/Breast Limited Unilateral IMPRESSION: Benign left breast intramammary lymph node and cysts. OVERALL FINAL ASSESSMENT BI-RADS 2: BENIGN RECOMMENDATION: Routine annual follow-up in 1 Year A letter with findings and recommendations will be mailed to the patient. Reading Location: [id number]
== END | disposition home or self-care (01) ==
LOC: OPBI 09:32
PROVIDERS: PCP Internal Medicine; Referring Provider Internal Medicine; Visit Provider Internal Medicine
DX: N63.22 Unspecified lump in the left breast, upper inner quadrant (principal); R92.8 Other abnormal and inconclusive findings on diagnostic imaging of breast
CPT/HCPCS: 76642; 77061; 77065; G0279

== ENCOUNTER 2025-06-20 06:23 | Outpatient (CLI) | payer OTHER, SELFPAY ==
[2025-06-20 06:56] LABS: Hematocrit 41.6 % (37-47); Hemoglobin 14.7 g/dL (12.0-15.0); Immature Granulocytes Count 0.010 X10^3/uL (0.0-0.0); Mean Corp Hgb Conc 35.3 g/dL (32-36); Mean Corpuscular Volume 91.6 fL (81-99); Mean Platelet Vol. 9.6 fl (6.2-12.0); NRBC Flagged by Analyzer 0 % (0-5); Platelet Count 250 K/mm3 (150-450); RBC Distribution Width CV 11.9 % (11.6-14.6); RBC Distribution Width SD 39.7 fl (35.1-43.9); Red Blood Count 4.54 M/mm3 (4.2-5.4); White Blood Count 5.4 K/mm3 (4.4-11.0)
[2025-06-20 07:29] LABS: AST(SGOT) 39 U/L (<=31); Alanine Aminotransfer ALT/SGPT 31 U/L (<=34); Albumin, Serum 4.4 g/dL (3.4-4.8); Alkaline Phosphatase 77 U/L (35-104); Anion Gap 11 (5-15); BUN 7 mg/dL (4-19); BUN/Creat Ratio 6.5 RATIO (10-20); Calcium,Total 9.8 mg/dL (7.6-11.0); Carbon Dioxide 26.8 mmol/L (21.0-32.0); Chloride 98 mmol/L (98-108); Cholesterol 224 mg/dL (<=200); Ferritin 91 ng/mL (22-378); Globulin 2.8 g/dL (2.2-4.2); Glucose 92 mg/dL (70-99); Low Density Lipoprotein Calc. 147 mg/dL; Potassium 4.0 mmol/L (3.3-5.1); Triglycerides 89 mg/dL; Very Low Density Lipoprotein 18 mg/dL (5-40); cholesterol:hdl ratio screen 3.67
[2025-06-20 09:42] LABS: Iron 123 ug/dL (50-170); Iron Binding Capacity,Total 298 ug/dL (250-450); Iron Binding Capacity,Unsat 175 ug/dL (228-428)
[2025-06-21 08:08] LABS: CRP, High Sensitivity < 0.15 mg/L (0.00-3.00)
[2025-06-26 10:08] LABS: Testosterone, % Free 1.63 % (0.50-2.80); Testosterone, Free 0.31 ng/dL (0.10-0.85)
== END 2025-06-20 23:59 | disposition home or self-care (01) ==
LOC: LAB 06:25
PROVIDERS: PCP Internal Medicine
DX: E78.00 Pure hypercholesterolemia, unspecified (principal); M25.50 Pain in unspecified joint
CPT/HCPCS: 36415; 80053; 80061; 82728; 83540; 83550; 83695; 84270; 84402; 84403; 85025; 86141

== ENCOUNTER → 2025-08-11 | Outpatient (CLI) | payer OTHER, SELFPAY ==
[2025-08-11 15:17] LABS: Lyme Scn Total Ab w/Rflx REF LAB
== END | disposition home or self-care (01) ==
LOC: PAVLAB 14:59
PROVIDERS: PCP Internal Medicine; Referring Provider Internal Medicine; Visit Provider Internal Medicine
DX: T14.8XXA Other injury of unspecified body region, initial encounter (principal); W57.XXXA Bitten or stung by nonvenomous insect and other nonvenomous arthropods, initial encounter
CPT/HCPCS: 36415; 86618